=== PATIENT | male | born 1935 | race Caucasian/White ===

== ENCOUNTER 2016-04-23 08:45 | Inpatient (IN) | payer OTHER ==
[~2016-04-23] VITALS: Ht 177.8 cm; Wt 90.3 kg
[2016-04-23] VITALS (8 sets, daily range): BP systolic 109–138; BP diastolic 62–91; PULSE 70–76; TEMP 36.7–38.2; O2SAT 95–100; Ht 177.8 cm; Wt 90.3 kg
[~2016-04-23 08:45] MED LIST: ALBUAER INH; ALLO100T PO; CHOL1000 PO; DOCU100C31 PO; INSUINJ4 SQ; ISOS30TA35 PO; LEVE500T PO; LSN40 PO; LSX20 PO; NTRGSL/4 UT; NVLGI/PEN SQ; PLV75 PO; SITA50TA3 PO; TOLT4CAP PO; TPRSR/100 PO
[2016-04-23] MEDS ORDERED: PIPERACILLIN/TAZOBACTAM 4.5 GM/100ML D5W IV STA (09:27)
[2016-04-23] MEDS ORDERED: ACETAMINOPHEN 325 MG SUPP PR STA (09:27)
[2016-04-23] MEDS ORDERED: SODIUM CHLORIDE 0.9% 1000ML 500 ML IV ONE ×4 (09:27→10:14)
[2016-04-23] MEDS ORDERED: ALBUT/IPRATROP 3MG/0.5MG NEB 3 ML VIAL INH STA (09:30)
[2016-04-23 09:39] LABS: BASO % 0.2 %; BASO ABS # 0.03 K/uL (0-0.2); COMPLETE YES; HEMATOCRIT 46.2 % (42-52); IG% 0.3 %; LYMPH % 3.8 %; LYMPH ABS # 0.58 K/uL (1.2-3.4); MEAN CELL VOLUME 94.9 fL (80-100); MEAN CORPUSCULAR HEMOGLOBIN 33.3 pg (25-34); MEAN CORPUSCULAR HGB CONC 35.1 g/dl (32-36); MEAN PLATELET VOLUME 10.4 fL (7.4-10.4); MONO % 6.6 %; NEUT % 89.1 %; PLATELET COUNT 206 K/uL (130-400); RED BLOOD COUNT 4.87 M/uL (4.7-6.1); WHITE BLOOD COUNT 15.45 K/uL (4.8-10.8)
[2016-04-23 09:46] LABS: BUN/CREATININE RATIO 12.7 (10-20); CALCIUM 8.6 mg/dl (8.5-10.1); CREATININE 2.6 mg/dl (0.60-1.40); MAGNESIUM 2.3 mg/dl (1.8-2.4); POTASSIUM 5.1 mmol/L (3.5-5.1)
[2016-04-23 09:47] LABS: PROTHROMBIN TIME (PATIENT) 11.1 SECONDS (9.0-12.0)
[2016-04-23 09:49] LABS: ALB/GLOB RATIO 0.7 (0.9-2)
[2016-04-23 09:57] LABS: URINE APPEARANCE CLEAR (CLEAR); URINE BILIRUBIN NEG (NEG); URINE COLOR YELLOW; URINE NITRITE NEG (NEG); URINE SPECIFIC GRAVITY 1.013 (1.000-1.030); UROBILINOGEN NEG (NEG); ZZURINE CULT IF INDIC CATH NO
[2016-04-23 09:58] LABS: MANUAL MICROSCOPIC REQUIRED? NO; REVIEW REQ? NO
[2016-04-23 10:15] LABS: VEN BLOOD GAS BASE EXCESS 0.8 mmol/L; VENOUS BLOOD GAS PCO2 65 mmHg (38.0-50.0); VENOUS BLOOD GAS PO2 32 mmHg
--- NOTE | 2016-04-23 10:15 | DIAGNOSTIC IMAGING REPORT ---
SINGLE VIEW CHEST CLINICAL HISTORY: Sepsis. FINDINGS: 2 AP, portable, upright chest radiographs are compared to chest x-ray and chest CT dated 01/21/2016. The examination is degraded by portable technique, apical lordotic positioning, and patient rotation. A 2-lead cardiac pacemaker is unchanged in position. The heart is enlarged and there is atherosclerotic calcification of the thoracic aorta. There is pulmonary vascular congestion. Chronic interstitial thickening is unchanged. Small pleural effusions are noted with associated bibasilar atelectasis. There is no pneumothorax. The skeletal structures are osteopenic. Degenerative change is seen in the thoracic spine and shoulders. IMPRESSION: 1. Cardiomegaly and cardiac pacemaker with evidence of congestive failure. 2. Small pleural effusions are identified. Electronically signed by: Dar Fallon M.D. 04/23/2016 10:14 AM Dictated Date/Time: 04/23/2016 10:12 AM
[2016-04-23 10:29] LABS: VEN BLD GAS O2 SATURATION < 60.0 %
[2016-04-23] MEDS ORDERED: LEVE250T PO (10:39)
[2016-04-23] MEDS ORDERED: METO25TA3 PO (10:39)
[2016-04-23] MEDS ORDERED: INSDGIPEN SC (10:39)
[2016-04-23] MEDS ORDERED: VNTHFA/IN INH (10:39)
[2016-04-23] MEDS ORDERED: PIPERACILL/TAZOBAC IV 4.5 GM in DEXTROSE 5% 100ML 100 ML IV STA (11:19)
[2016-04-23] MEDS ORDERED: SODIUM CHLORIDE 0.9% 1000ML 1,000 ML IV SCH (11:19)
[2016-04-23] MEDS ORDERED: ALUMINUM/MAGNESIUM/SIMETH (MAALOX MAX) 30 ML UDC PO PRN (11:30)
[2016-04-23] MEDS ORDERED: POLYETHYLENE (MIRALAX) 17 GM PACK PO PRN (11:30)
[2016-04-23] MEDS ORDERED: ONDANSETRON INJ 2 MG/ML 2 ML VIAL IV PRN (11:30)
[2016-04-23] MEDS ORDERED: ACETAMINOPHEN 325 MG TAB PO PRN (11:30)
[2016-04-23] MEDS ORDERED: MAGNESIUM HYDROXIDE SUSP 30 ML UDC PO PRN (11:30)
[2016-04-23 11:48] LABS: INFLUENZA A PCR Neg for Influ A (NEG); INFLUENZA B PCR Neg for Influ B (NEG)
[2016-04-23] MEDS ORDERED: GLUCOSE 10 TABS/TUBE PO PRN (12:00)
[2016-04-23] MEDS ORDERED: GLUCAGON FOR INJ 1 MG VIAL SQ PRN (12:00)
[2016-04-23] MEDS ORDERED: DEXTROSE 50% 50 ML SYR IV PRN (12:00)
[2016-04-23] MEDS ORDERED: GLUCOSE 40% GEL 15 GM TUBE PO PRN (12:00)
--- NOTE | 2016-04-23 12:07 | Progress Note ---
Subjective Date of Service: Apr 23, 2016. Subjective Pt evaluation today including: conversation w/ family (daughter), physical exam , lab review, review of studies, review of inpatient medication list This is a 80 year old demented male with a complex PMH that includes tachy- waldo syndrome s/p PPM, CAD s/p stent with stable angina, hx. of CVA with multiple residual symptoms, insulin dependent DM2, CKD stage 3, solitary kidney , obstructive sleep apnea - failed outpatient CPAP, HTN, HLD was brought in by his daughter due to weakness, and respiratory distress. All of the history is obtained from the daughter. He has had weakness and shortness of breath since the weekend, he had a fall on 04/22 - and today the breathing just got a lot worse. 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 His uvula was removed due to his significant apnea nocturnally and his failed CPAP use at home (did not tolerate it well). On presentation here, WBC was elevated, lactic acid found to be > 5 - patient was hypoxic and placed on a non-rebreather for now. He is currently asleep and lethargic, somewhat arousable, but goes back to sleep. He becomes apneic during sleep. Problem List Medical Problems: (1) Altered mental status Status: Acute (2) Chest pain Status: Acute (3) Chronic renal disease Status: Acute (4) Esophageal foreign body Status: Acute (5) New onset a-fib Status: Acute (6) Pneumonia Status: Acute (7) Precordial chest pain Status: Acute (8) UTI (urinary tract infection) Status: Acute (9) Weakness Status: Acute Medications Current Inpatient Medications Medications (Trade) Dose Ordered Sig/Mike Route Start Time Stop Time Status Last Admin Dose Admin Heparin Sodium (Porcine) 5000 unit 5,000 unit Q12 SQ 04/23/16 21:00 05/23/16 20:59 UNV Sodium Chloride (Nss 1000ml) 1,000 ml @ 100 mls/hr Q10H IV 04/23/16 11:19 05/23/16 11:18 UNV Acetaminophen (Tylenol Tab) 650 mg Q4H PRN PO 04/23/16 11:30 05/23/16 11:29 UNV Al Hydrox/Mg Hydrox/Simethicone (Maalox Max Susp) 15 ml Q4H PRN PO 04/23/16 11:30 05/23/16 11:29 UNV Magnesium Hydroxide (Milk Of Magnesia Susp) 30 ml Q12H PRN PO 04/23/16 11:30 05/23/16 11:29 UNV Ondansetron HCl (Zofran Inj) 4 mg Q6H PRN IV 04/23/16 11:30 05/23/16 11:29 UNV Polyethylene 17 gm 17 gm DAILY PRN PO 04/23/16 11:30 05/23/16 11:29 UNV Piperacillin Sod/ Tazobactam Sod/ Dextrose (Zosyn Iv/D5 100ml) 120 ml @ 200 mls/hr Q6H STAT IV 04/23/16 11:19 04/23/16 11:54 UNV Levalbuterol (Xopenex 0.63 Mg/ 3 Ml Neb) 0.63 mg Q6R INH 04/23/16 15:00 05/23/16 14:59 UNV Clopidogrel Bisulfate (plAVix TAB) 75 mg DAILY PO 04/24/16 09:00 05/24/16 08:59 UNV Insulin Glargine (Lantus Solostar Pen) 5 unit BID SC 04/23/16 21:00 05/23/16 20:59 UNV Isosorbide Mononitrate (Imdur Ext Rel Tab) 30 mg QAM PO 04/24/16 09:00 05/24/16 08:59 UNV Levetiracetam (Keppra Tab) 250 mg BID PO 04/23/16 21:00 05/23/16 20:59 UNV Metoprolol Succinate (Toprol Xl Tab) 25 mg DAILY PO 04/24/16 09:00 05/24/16 08:59 UNV Objective Vital Signs Date Time Temp Pulse Resp B/P Pulse Ox O2 Delivery O2 Flow Rate FiO2 04/23/16 10:49 38.2 73 22 109/62 95 Non-Rebreather 15.0 04/23/16 10:16 105/83 04/23/16 10:15 71 6 100 04/23/16 10:01 110/64 04/23/16 10:00 70 7 100 04/23/16 09:45 72 15 100 04/23/16 09:42 100 Non-Rebreather 15.0 04/23/16 09:40 71 106/59 100 Non-Rebreather 15.0 04/23/16 09:33 106/59 04/23/16 09:30 71 0 100 04/23/16 09:15 73 6 100 04/23/16 09:07 80 04/23/16 09:02 38.2 77 20 113/75 100 High Flow Oxygen 15.0 Non-Rebreather 04/23/16 08:55 113/75 Physical Exam General Appearance: + pertinent finding (lethargic; somnolent, using accessory muscles for respiration) Respiratory/Chest: no respiratory distress, no accessory muscle use, + accessory muscle use, + rhonchi Cardiovascular: regular rate, rhythm, no edema, no murmur Abdomen: normal bowel sounds, non tender, soft Skin: normal color Laboratory Results Last 24 Hours Test 04/23/16 08:56 04/23/16 09:10 04/23/16 09:15 04/23/16 10:00 Urine Color YELLOW Urine Appearance CLEAR Urine pH 5.0 Urine Specific [place] 1.013 Urine Protein 2+ Urine Glucose (UA) 1+ Urine Ketones NEG Urine Occult Blood TRACE Urine Nitrite NEG Urine Bilirubin NEG Urine Urobilinogen NEG Urine Leukocyte Esterase NEG Urine WBC (Auto) 1-5 /hpf Urine RBC (Auto) 0-4 /hpf Urine Hyaline Casts (Auto) 0 /lpf Urine Epithelial Cells (Auto) 5-10 /lpf Urine Bacteria (Auto) NEG White Blood Count 15.45 K/uL Red Blood Count 4.87 M/uL Hemoglobin 16.2 g/dL Hematocrit 46.2 % Mean Corpuscular Volume 94.9 fL Mean Corpuscular Hemoglobin 33.3 pg Mean Corpuscular Hemoglobin Concent 35.1 g/dl Platelet Count 206 K/uL Mean Platelet Volume 10.4 fL Neutrophils (%) (Auto) 89.1 % Lymphocytes (%) (Auto) 3.8 % Monocytes (%) (Auto) 6.6 % Eosinophils (%) (Auto) 0.0 % Basophils (%) (Auto) 0.2 % Neutrophils # (Auto) 13.77 K/uL Lymphocytes # (Auto) 0.58 K/uL Monocytes # (Auto) 1.02 K/uL Eosinophils # (Auto) 0.00 K/uL Basophils # (Auto) 0.03 K/uL RDW Standard Deviation 50.6 fL RDW Coefficient of Variation 14.8 % Immature Granulocyte % (Auto) 0.3 % Immature Granulocyte # (Auto) 0.05 K/uL Prothrombin Time 11.1 SECONDS Prothromb Time International Ratio 1.0 Activated Partial Thromboplast Time 27.0 SECONDS Partial Thromboplastin Ratio 1.0 Sodium Level 140 mmol/L Potassium Level 5.1 mmol/L Chloride Level 103 mmol/L Carbon Dioxide Level 28 mmol/L Anion Gap 9.0 mmol/L Blood Urea Nitrogen 33 mg/dl Creatinine 2.60 mg/dl Est Creatinine Clear Calc Drug Dose 24.8 ml/min Estimated GFR () 25.5 Estimated GFR (Non- 22.0 BUN/Creatinine Ratio 12.7 Random Glucose 186 mg/dl Calcium Level 8.6 mg/dl Magnesium Level 2.3 mg/dl Total Bilirubin 0.5 mg/dl Aspartate Amino Transf (AST/SGOT) 20 U/L Alanine Aminotransferase (ALT/SGPT) 17 U/L Alkaline Phosphatase 80 U/L Pro-B-Type Natriuretic Peptide 3249 pg/ml Total Protein 7.8 gm/dl Albumin 3.3 gm/dl Globulin 4.5 gm/dl Albumin/Globulin Ratio 0.7 Bedside Lactic Acid Venous 5.33 mmol/L Venous Blood pH 7.28 Venous Blood Partial Pressure CO2 65 mmHg Venous Blood Partial Pressure O2 32 mmHg Venous Blood HCO3 29 mmol/L Venous Blood Oxygen Saturation < 60.0 % Venous Blood Base Excess 0.8 mmol/L Test 04/23/16 10:15 04/23/16 11:19 Assessment and Plan This is a 80 year old demented male with a complex PMH that includes tachy- waldo syndrome s/p PPM, CAD s/p stent with stable angina, hx. of CVA with multiple residual symptoms, insulin dependent DM2, CKD stage 3, solitary kidney , obstructive sleep apnea with CPAP intolerance, HTN, HLD was brought in by his daughter due to weakness, and respiratory distress. Sepsis secondary to possible Aspiration Pneumonia patient is septic with +fever, +leukocytosis, +lactic acidosis no clear source noted CXR noted to have some pleural effusion patient has a history of aspiration and this is likely an aspiration pneumonia started IV Zosyn patient is coming from home - lives with daughter If condition does not improve in 1-2 days - can convert to comfort measures as per daughter, Saray given 4L of fluids in the ER; maintenance fluids of 100mL/hr will be started recheck lactic acid now Acute Kidney Injury superimposed on CKD stage 3 creat up to 2.6 patient has been having decreased food intake for the past 4-5 days dehydration and infection baseline is < 2 given 4L of fluids in the ER continue IVFs and monitor kidney function Acute Respiratory Failure likely related to the pneumonia as above hypoxic en route to the hospital placed on a nonrebreather - can titrate down to nasal cannula as tolerated venous blood gas - hypercapnia, acidosis CAD s/p stent history of stent continue Plavix, b-nancie continue Imdur for stable anginal symptoms Hx. of CVA has had a stroke in the past - 2006 apparently has had epiglottic issues since the CVA aspiration precautions placed continue Plavix Insulin Dependent DM2 uses 13 units of Lantus nightly uses NovoLog TID will start sliding scale and Lantus 5 units BID ha1c; glycemic control consult monitor for hypoglycemia with decrease PO intake NINI should be on CPAP, though does not tolerate it use oxygen nocturnally Tachy-Waldo Syndrome s/p cardiac pacemaker in situ DVT ppx subq heparin DNR contact information for Saray, daughter and POA cell phone: [phone] work phone: [phone] If patient's condition worsens or there is no improvement - contact daughter regarding comfort measures
--- NOTE | 2016-04-23 12:11 | History and Physical ---
History & Physical Date & Time of Service: Apr 23, 2016 at 12:08 Chief Complaint: Respiratory Distress Primary Care Physician: Austen Boyer M.D. (MEDICAL) History of Present Illness Source: family, clinic records, hospital records This is a 80 year old demented male with a complex PMH that includes tachy- waldo syndrome s/p PPM, CAD s/p stent with stable angina, hx. of CVA with multiple residual symptoms, insulin dependent DM2, CKD stage 3, solitary kidney , obstructive sleep apnea - failed outpatient CPAP, HTN, HLD was brought in by his daughter due to weakness, and respiratory distress. All of the history is obtained from the daughter. He has had weakness and shortness of breath since the weekend, he had a fall on 04/22 - and today the breathing just got a lot worse. 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 His uvula was removed due to his significant apnea nocturnally and his failed CPAP use at home (did not tolerate it well). On presentation here, WBC was elevated, lactic acid found to be > 5 - patient was hypoxic and placed on a non-rebreather for now. He is currently asleep and lethargic, somewhat arousable, but goes back to sleep. He becomes apneic during sleep. Past Medical/Surgical History Medical Problems: (1) Amputated finger Permanent Comment: traumatic Status: Resolved (2) ASCVD (arteriosclerotic cardiovascular disease) Status: Chronic (3) BPH (benign prostatic hyperplasia) Status: Chronic (4) CAD (coronary artery disease) Status: Chronic (5) CKD (chronic kidney disease) stage 3, GFR 30-59 ml/min Status: Chronic (6) CVA (cerebral vascular accident) Status: Resolved (7) Dementia Status: Chronic (8) Diabetes mellitus type 2 in obese Status: Chronic (9) Diabetic polyneuropathy Status: Chronic (10) Dyslipidemia Status: Chronic (11) Eczema, dyshidrotic Status: Chronic (12) GERD (gastroesophageal reflux disease) Status: Chronic (13) Gout Status: Chronic (14) Hemiplegia, post-stroke Status: Chronic (15) HTN (hypertension) Status: Chronic (16) NINI (obstructive sleep apnea) Status: Chronic (17) PVD (peripheral vascular disease) Status: Chronic (18) Seizure disorder Status: Chronic (19) Solitary kidney Status: Chronic Surgical Problems: (1) H/O Spinal surgery Status: Resolved (2) H/O vasectomy Status: Resolved Family History Diabetes mellitus Heart disease Social History Smoking Status: Former Smoker Drug Use: none Marital Status: Occupational Status: retired Immunizations History of Influenza Vaccine: No History of Tetanus Vaccine?: Unknown History of Pneumococcal: Unknown History of Hepatitis B Vaccine: No Multi-Drug Resistant 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 Allergies Coded Allergies: Atorvastatin (Verified Allergy, Mild, MUSCLE WEAKNESS, 01/21/16) Phenytoin (Verified Allergy, Unknown, Weak legs., 01/21/16) Source[facility] Simvastatin (Verified Allergy, Unknown, UNKNOWN, 01/21/16) Home Medications Scheduled Allopurinol (Zyloprim), 200 MG PO DAILY Cholecalciferol (Vitamin D3), 2,000 TAB PO DAILY Clopidogrel Bisulfate (Clopidogrel), 75 MG PO DAILY Furosemide (Furosemide), 10 MG PO DAILY Insulin Aspart (Novolog Flexpen), 2-10 UNITS SQ UD Insulin Glargine (Lantus Solostar), 13 UNITS SC HS Isosorbide Mononitrate Ext Rel (Imdur Ext Rel), 30 MG PO QAM Levetiracetam (Keppra), 250 MG PO BID Lisinopril (Lisinopril), 20 MG PO QAM Metoprolol Succ (Toprol Xl) (Toprol-Xl), 25 MG PO DAILY Nitroglycerin (Nitrostat), 0.4 MG UT PRN Sitagliptin (Januvia), 50 MG PO DAILY Tolterodine Tartrate (Detrol La), 4 MG PO QAM Scheduled PRN Albuterol Hfa (Ventolin Hfa), 2 PUFF INH Q4H PRN for Wheezing Physical Exam Vital Signs Date Time Temp Pulse Resp B/P Pulse Ox O2 Delivery O2 Flow Rate FiO2 04/23/16 10:49 38.2 73 22 109/62 95 Non-Rebreather 15.0 04/23/16 10:16 105/83 04/23/16 10:15 71 6 100 04/23/16 10:01 110/64 04/23/16 10:00 70 7 100 04/23/16 09:45 72 15 100 04/23/16 09:42 100 Non-Rebreather 15.0 04/23/16 09:40 71 106/59 100 Non-Rebreather 15.0 04/23/16 09:33 106/59 04/23/16 09:30 71 0 100 04/23/16 09:15 73 6 100 04/23/16 09:07 80 04/23/16 09:02 38.2 77 20 113/75 100 High Flow Oxygen 15.0 Non-Rebreather 04/23/16 08:55 113/75 General Appearance: + pertinent finding (somnolent, lethargic, nonbreather on face; snoring loudly with periods of apnea; +accessory muscle use for respirations) Head: + pertinent finding (+laceration above left eye) Respiratory/Chest: + accessory muscle use, + rhonchi Cardiovascular: regular rate, rhythm, no edema, no murmur Extremities/Musculoskelatal: normal capillary refill, no pedal edema Neurologic/Psych: + pertinent finding (lethargic) Skin: normal color Diagnostics Laboratory Results Results Past 24 Hours Test 04/23/16 08:56 04/23/16 09:10 04/23/16 09:15 04/23/16 10:00 Range/Units Urine Color YELLOW Urine Appearance CLEAR CLEAR Urine pH 5.0 4.5-7.5 Urine Specific [place] 1.013 1.000-1.030 Urine Protein 2+ NEG Urine Glucose (UA) 1+ NEG Urine Ketones NEG NEG Urine Occult Blood TRACE NEG Urine Nitrite NEG NEG Urine Bilirubin NEG NEG Urine Urobilinogen NEG NEG Urine Leukocyte Esterase NEG NEG Urine WBC (Auto) 1-5 0-5 /hpf Urine RBC (Auto) 0-4 0-4 /hpf Urine Hyaline Casts (Auto) 0 0-5 /lpf Urine Epithelial Cells (Auto) 5-10 0-5 /lpf Urine Bacteria (Auto) NEG NEG White Blood Count 15.45 4.8-10.8 K/uL Red Blood Count 4.87 4.7-6.1 M/uL Hemoglobin 16.2 14.0-18.0 g/dL Hematocrit 46.2 42-52 % Mean Corpuscular Volume 94.9 80-100 fL Mean Corpuscular Hemoglobin 33.3 25-34 pg Mean Corpuscular Hemoglobin Concent 35.1 32-36 g/dl Platelet Count 206 130-400 K/uL Mean Platelet Volume 10.4 7.4-10.4 fL Neutrophils (%) (Auto) 89.1 % Lymphocytes (%) (Auto) 3.8 % Monocytes (%) (Auto) 6.6 % Eosinophils (%) (Auto) 0.0 % Basophils (%) (Auto) 0.2 % Neutrophils # (Auto) 13.77 1.4-6.5 K/uL Lymphocytes # (Auto) 0.58 1.2-3.4 K/uL Monocytes # (Auto) 1.02 0.11-0.59 K/uL Eosinophils # (Auto) 0.00 0-0.5 K/uL Basophils # (Auto) 0.03 0-0.2 K/uL RDW Standard Deviation 50.6 36.4-46.3 fL RDW Coefficient of Variation 14.8 11.5-14.5 % Immature Granulocyte % (Auto) 0.3 % Immature Granulocyte # (Auto) 0.05 0.00-0.02 K/uL Prothrombin Time 11.1 9.0-12.0 SECONDS Prothromb Time International Ratio 1.0 0.9-1.1 Activated Partial Thromboplast Time 27.0 21.0-31.0 SECONDS Partial Thromboplastin Ratio 1.0 Sodium Level 140 136-145 mmol/L Potassium Level 5.1 3.5-5.1 mmol/L Chloride Level 103 98-107 mmol/L Carbon Dioxide Level 28 21-32 mmol/L Anion Gap 9.0 3-11 mmol/L Blood Urea Nitrogen 33 7-18 mg/dl Creatinine 2.60 0.60-1.40 mg/dl Est Creatinine Clear Calc Drug Dose 24.8 ml/min Estimated GFR () 25.5 Estimated GFR (Non- 22.0 BUN/Creatinine Ratio 12.7 10-20 Random Glucose 186 70-99 mg/dl Calcium Level 8.6 8.5-10.1 mg/dl Magnesium Level 2.3 1.8-2.4 mg/dl Total Bilirubin 0.5 0.2-1 mg/dl Aspartate Amino Transf (AST/SGOT) 20 15-37 U/L Alanine Aminotransferase (ALT/SGPT) 17 12-78 U/L Alkaline Phosphatase 80 45-117 U/L Pro-B-Type Natriuretic Peptide 3249 0-1800 pg/ml Total Protein 7.8 6.4-8.2 gm/dl Albumin 3.3 3.4-5.0 gm/dl Globulin 4.5 2.5-4.0 gm/dl Albumin/Globulin Ratio 0.7 0.9-2 Bedside Lactic Acid Venous 5.33 0.90-1.70 mmol/L Venous Blood pH 7.28 7.36-7.41 Venous Blood Partial Pressure CO2 65 38.0-50.0 mmHg Venous Blood Partial Pressure O2 32 mmHg Venous Blood HCO3 29 mmol/L Venous Blood Oxygen Saturation < 60.0 % Venous Blood Base Excess 0.8 mmol/L Test 04/23/16 10:15 04/23/16 11:19 Range/Units Influenza Type A (RT-PCR) Neg for Influ A NEG Influenza Type B (RT-PCR) Neg for Influ B NEG Microbiology Results 04/23/16 Blood Culture, Received Pending 04/23/16 Blood Culture, Received Pending Diagnostic Radiology SINGLE VIEW CHEST CLINICAL HISTORY: Sepsis. FINDINGS: 2 AP, portable, upright chest radiographs are compared to chest x-ray and chest CT dated 01/21/2016. The examination is degraded by portable technique, apical lordotic positioning, and patient rotation. A 2-lead cardiac pacemaker is unchanged in position. The heart is enlarged and there is atherosclerotic calcification of the thoracic aorta. There is pulmonary vascular congestion. Chronic interstitial thickening is unchanged. Small pleural effusions are noted with associated bibasilar atelectasis. There is no pneumothorax. The skeletal structures are osteopenic. Degenerative change is seen in the thoracic spine and shoulders. IMPRESSION: 1. Cardiomegaly and cardiac pacemaker with evidence of congestive failure. 2. Small pleural effusions are identified. EKG Atrial-paced rhythm with prolonged AV conduction Impression Assessment and Plan This is a 80 year old demented male with a complex PMH that includes tachy- waldo syndrome s/p PPM, CAD s/p stent with stable angina, hx. of CVA with multiple residual symptoms, insulin dependent DM2, CKD stage 3, solitary kidney , obstructive sleep apnea with CPAP intolerance, HTN, HLD was brought in by his daughter due to weakness, and respiratory distress. Sepsis secondary to possible Aspiration Pneumonia patient is septic with +fever, +leukocytosis, +lactic acidosis no clear source noted CXR noted to have some pleural effusion patient has a history of aspiration and this is likely an aspiration pneumonia started IV Zosyn patient is coming from home - lives with daughter If condition does not improve in 1-2 days - can convert to comfort measures as per daughter, Saray given 4L of fluids in the ER; maintenance fluids of 100mL/hr will be started recheck lactic acid now Acute Kidney Injury superimposed on CKD stage 3 creat up to 2.6 patient has been having decreased food intake for the past 4-5 days dehydration and infection baseline is < 2 given 4L of fluids in the ER continue IVFs and monitor kidney function Acute Respiratory Failure likely related to the pneumonia as above hypoxic en route to the hospital placed on a nonrebreather - can titrate down to nasal cannula as tolerated venous blood gas - hypercapnia, acidosis CAD s/p stent history of stent continue Plavix, b-nancie continue Imdur for stable anginal symptoms Hx. of CVA has had a stroke in the past - 2006 apparently has had epiglottic issues since the CVA aspiration precautions placed continue Plavix Insulin Dependent DM2 uses 13 units of Lantus nightly uses NovoLog TID will start sliding scale and Lantus 5 units BID ha1c; glycemic control consult monitor for hypoglycemia with decrease PO intake NINI should be on CPAP, though does not tolerate it use oxygen nocturnally Tachy-Waldo Syndrome s/p cardiac pacemaker in situ DVT ppx subq heparin DNR contact information for Saray, daughter and POA cell phone: [phone] work phone: [phone] If patient's condition worsens or there is no improvement - contact daughter regarding comfort measures Advanced Directives Existing Living Will: No Existing Power of Manager Software Development: No VTE Prophylaxis VTE Risk Assessment Done? Y/N: Yes Risk Level: High
[2016-04-23] MEDS ORDERED: PHARMACY GLYCEMIC MGMT CONSULT SCH (12:39)
[2016-04-23] MEDS ORDERED: PIPERACILL/TAZOBAC CONSULT ACTIVE PRN (13:30)
--- NOTE | 2016-04-23 13:34 | Pharmacy Progress Note ---
Glycemic Control Intl Consult Date of Service Apr 23, 2016. Scope Glycemic Pharmacist consulted by Dr Workman on 04/23/16 for glycemic control and to write orders per [facility] inpatient glycemic control protocol Objective Weight (Kilograms): 90.500 Accuchecks BSG (last 24hrs): Test 04/23/16 09:10 Random Glucose 186 mg/dl (70-99) Laboratory Data (last 24hrs) Test 04/23/16 09:10 Anion Gap 9.0 mmol/L BUN/Creatinine Ratio 12.7 Blood Urea Nitrogen 33 mg/dl Creatinine 2.60 mg/dl Potassium Level 5.1 mmol/L Sodium Level 140 mmol/L White Blood Count 15.45 K/uL Red Blood Count 4.87 M/uL Hemoglobin 16.2 g/dL Hematocrit 46.2 % Mean Corpuscular Volume 94.9 fL Mean Corpuscular Hemoglobin 33.3 pg Mean Corpuscular Hemoglobin Concent 35.1 g/dl Platelet Count 206 K/uL Mean Platelet Volume 10.4 fL Neutrophils (%) (Auto) 89.1 % Lymphocytes (%) (Auto) 3.8 % Monocytes (%) (Auto) 6.6 % Eosinophils (%) (Auto) 0.0 % Basophils (%) (Auto) 0.2 % Neutrophils # (Auto) 13.77 K/uL Lymphocytes # (Auto) 0.58 K/uL Monocytes # (Auto) 1.02 K/uL Eosinophils # (Auto) 0.00 K/uL Basophils # (Auto) 0.03 K/uL HbA1c 04/16/16 Hgb A1c = 7.3% (per Epic) Recent Pertinent Medications Outpatient Anti-diabetic Regimen: * Lantus 13 units hs, Novolog SSI ACHS (correction factor ~25), Januvia 50 mg daily * A1c = 7.3 % 04/16/16 (per [facility] records) The patient is currently receiving: * Basal insulin: Lantus 5 units every 12 hours * Correctional Insulin: Novolog Correction per scale ACHS Goal Range: Low 140 mg/dL - High 180 mg/dL Correction Factor: 30 mg/dL/unit * Prandial insulin: Per carb ratio of 1 unit per 10 grams CHO consumed * Oral Agents: none Risk Factors for Insulin Resistance: * Steroids: no * Infection: possible aspiration pneumonia, on Zosyn * Pressors: no * IVF: NS @ 100 ml/hr, Zosyn mixed in D5W * Recent Surgery: no * Diet: ? * Mechanical Ventilation: no Assessment & Plan ASSESSMENT: * ADA & AACE recommend a goal blood sugar range 140-180 mg/dl for the majority of critically ill & non-critically ill patients. However, more stringent targets may be selected in individual cases. * 80 yo type 2 diabetic, well controlled (A1c 7.3% is possibly too well controlled in 80 yo, with risk of hypoglycemic episodes.) No steroids, not many other risk factors for insulin resistance at this time. Will loosen correction and carb ratio a bit, get an extra BSG check overnight, and reassess in the am when we have more data. PLAN FOR INPATIENT GLYCEMIC CONTROL: * Holding outpatient oral diabetes medications * Basal insulin with LANTUS 5 units SQ BID * Correctional Insulin with NOVOLOG per scale ACHS or Q6hrs while NPO, extra BSG check overnight * Goal Range: Low 140 mg/dL - High 180 mg/dL * Correction Factor: 45 mg/dL/unit * Nutritional / Prandial insulin per carb ratio of 1 unit per 15 grams CHO consumed * Please note that the plan above was derived based on current level of insulin resistance and hospital stress. These recommendations are appropriate for inpatient admission only. Plan of care upon discharge will need to be reassessed to avoid potential outpatient hypo/hyperglycemia. Thank you.
--- NOTE | 2016-04-23 14:14 | EMERGENCY ROOM VISIT NOTE ---
History Report prepared by Lisa: Rosanne Brady Under the Supervision of: Dr. Dar Garcia M.D. First contact with patient: 09:15 Chief Complaint: FEVER Stated Complaint: RESPIRATORY DISTRESS History of Present Illness The patient is a 80 year old male who presents to the Emergency Room via ambulance to be evaluated for respiratory problems this morning. History is limited secondary to dementia and mental state. The patient lives at home in a hospital bed and his inletter noticed that he was not responding. He typically awakens more easily. When he finally woke up, he seemed more confused than baseline. The patient had a fever and his oxygen saturation was 78 on room air. He does not usually wear oxygen at home. He has not been given anything for his fever and did not have a nebulizer treatment on the way to the ED. He has a history of cardiac issues and stroke. He is a DNR. Source of History: patient History Limited By: dementia Onset: this morning Position: other (Global) Symptom Intensity: O2 saturation 78 Timing: other (persistent) Associated Symptoms: + fevers Review of Systems ROS unobtainable secondary to dementia and mental state. 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, post-stroke (18) HTN (hypertension) (19) NINI (obstructive sleep apnea) (20) Pneumonia (21) PVD (peripheral vascular disease) (22) Seizure disorder (23) Sepsis (24) Solitary kidney (25) Weakness Surgical Problems: (1) H/O Spinal surgery (2) H/O vasectomy Family History Diabetes mellitus Heart disease Social History Smoking Status: Unknown if Ever Smoked Drug Use: none Marital Status: Occupation Status: retired Current/Historical Medications Scheduled Allopurinol (Zyloprim), 200 MG PO DAILY Cholecalciferol (Vitamin D3), 2,000 TAB PO DAILY Clopidogrel Bisulfate (Clopidogrel), 75 MG PO DAILY Furosemide (Furosemide), 10 MG PO DAILY Insulin Aspart (Novolog Flexpen), 2-10 UNITS SQ UD Insulin Glargine (Lantus Solostar), 13 UNITS SC HS Isosorbide Mononitrate Ext Rel (Imdur Ext Rel), 30 MG PO QAM Levetiracetam (Keppra), 250 MG PO BID Lisinopril (Lisinopril), 20 MG PO QAM Metoprolol Succ (Toprol Xl) (Toprol-Xl), 25 MG PO DAILY Nitroglycerin (Nitrostat), 0.4 MG UT PRN Sitagliptin (Januvia), 50 MG PO DAILY Tolterodine Tartrate (Detrol La), 4 MG PO QAM Scheduled PRN Albuterol Hfa (Ventolin Hfa), 2 PUFF INH Q4H PRN for Wheezing Allergies Coded Allergies: Simvastatin (Verified Allergy, Mild, rash, 04/23/16) per gmg Atorvastatin (Verified Adverse Reaction, Mild, MUSCLE WEAKNESS, 04/23/16) Phenytoin (Verified Adverse Reaction, Unknown, Weak legs., 04/23/16) Source-[facility] Physical Exam Vital Signs Date Time Temp Pulse Resp B/P Pulse Ox O2 Delivery O2 Flow Rate FiO2 04/23/16 10:49 38.2 73 22 109/62 95 Non-Rebreather 15.0 04/23/16 10:16 105/83 04/23/16 10:15 71 6 100 04/23/16 10:01 110/64 04/23/16 10:00 70 7 100 04/23/16 09:45 72 15 100 04/23/16 09:42 100 Non-Rebreather 15.0 04/23/16 09:40 71 106/59 100 Non-Rebreather 15.0 04/23/16 09:33 106/59 04/23/16 09:30 71 0 100 04/23/16 09:15 73 6 100 04/23/16 09:07 80 04/23/16 09:02 38.2 77 20 113/75 100 High Flow Oxygen 15.0 Non-Rebreather 04/23/16 08:55 113/75 Physical Exam GENERAL: Patient is in no acute distress. HEENT: No acute trauma, normocephalic atraumatic, mucous membranes moist, no nasal congestion, no scleral icterus, pupils equal round and reactive to light. NECK: No stridor, no adenopathy, no meningismus, trachea is midline. LUNGS: Rhonchi noted bilaterally, breath sounds are equal and fairly full, no wheezing. HEART: Without murmurs gallops or rubs, regular rate and rhythm. ABDOMEN: Soft, nontender, bowel sounds positive, no hernias, no peritonitis. EXTREMITIES: No cyanosis or edema, full range of motion of all the joints without pain or difficulty, no signs for acute trauma. NEUROLOGIC: Somnolent, moves all extremities, arouses to voice, not able to follow commands. SKIN: No rash, no jaundice, no diaphoresis. Medical Decision & Procedures ER Provider Diagnostic Interpretation: Radiology results and stated below per my review and radiologist interpretation: SINGLE VIEW CHEST CLINICAL HISTORY: Sepsis. FINDINGS: 2 AP, portable, upright chest radiographs are compared to chest x-ray and chest CT dated 01/21/2016. The examination is degraded by portable technique, apical lordotic positioning, and patient rotation. A 2-lead cardiac pacemaker is unchanged in position. The heart is enlarged and there is atherosclerotic calcification of the thoracic aorta. There is pulmonary vascular congestion. Chronic interstitial thickening is unchanged. Small pleural effusions are noted with associated bibasilar atelectasis. There is no pneumothorax. The skeletal structures are osteopenic. Degenerative change is seen in the thoracic spine and shoulders. IMPRESSION: 1. Cardiomegaly and cardiac pacemaker with evidence of congestive failure. 2. Small pleural effusions are identified. Electronically signed by: Dar Faloln M.D. 04/23/2016 10:14 AM Dictated Date/Time: 04/23/2016 10:12 AM Laboratory Results 04/23/16 09:10 Red Blood Count 4.87, Mean Corpuscular Volume 94.9, Mean Corpuscular Hemoglobin 33.3, Mean Corpuscular Hemoglobin Concent 35.1, Mean Platelet Volume 10.4, Neutrophils (%) (Auto) 89.1, Lymphocytes (%) (Auto) 3.8, Monocytes (%) (Auto) 6.6, Eosinophils (%) (Auto) 0.0, Basophils (%) (Auto) 0.2, Neutrophils # (Auto) 13.77, Lymphocytes # (Auto) 0.58, Monocytes # (Auto) 1.02, Eosinophils # (Auto) 0.00, Basophils # (Auto) 0.03 04/23/16 09:10 Test 04/23/16 08:56 04/23/16 09:10 04/23/16 09:15 04/23/16 10:00 Urine Color YELLOW Urine Appearance CLEAR (CLEAR) Urine pH 5.0 (4.5-7.5) Urine Specific [place] 1.013 (1.000-1.030) Urine Protein 2+ (NEG) Urine Glucose (UA) 1+ (NEG) Urine Ketones NEG (NEG) Urine Occult Blood TRACE (NEG) Urine Nitrite NEG (NEG) Urine Bilirubin NEG (NEG) Urine Urobilinogen NEG (NEG) Urine Leukocyte Esterase NEG (NEG) Urine WBC (Auto) 1-5 /hpf (0-5) Urine RBC (Auto) 0-4 /hpf (0-4) Urine Hyaline Casts (Auto) 0 /lpf (0-5) Urine Epithelial Cells (Auto) 5-10 /lpf (0-5) Urine Bacteria (Auto) NEG (NEG) White Blood Count 15.45 K/uL (4.8-10.8) Red Blood Count 4.87 M/uL (4.7-6.1) Hemoglobin 16.2 g/dL (14.0-18.0) Hematocrit 46.2 % (42-52) Mean Corpuscular Volume 94.9 fL (80-100) Mean Corpuscular Hemoglobin 33.3 pg (25-34) Mean Corpuscular Hemoglobin Concent 35.1 g/dl (32-36) Platelet Count 206 K/uL (130-400) Mean Platelet Volume 10.4 fL (7.4-10.4) Neutrophils (%) (Auto) 89.1 % Lymphocytes (%) (Auto) 3.8 % Monocytes (%) (Auto) 6.6 % Eosinophils (%) (Auto) 0.0 % Basophils (%) (Auto) 0.2 % Neutrophils # (Auto) 13.77 K/uL (1.4-6.5) Lymphocytes # (Auto) 0.58 K/uL (1.2-3.4) Monocytes # (Auto) 1.02 K/uL (0.11-0.59) Eosinophils # (Auto) 0.00 K/uL (0-0.5) Basophils # (Auto) 0.03 K/uL (0-0.2) RDW Standard Deviation 50.6 fL (36.4-46.3) RDW Coefficient of Variation 14.8 % (11.5-14.5) Immature Granulocyte % (Auto) 0.3 % Immature Granulocyte # (Auto) 0.05 K/uL (0.00-0.02) Prothrombin Time 11.1 SECONDS (9.0-12.0) Prothromb Time International Ratio 1.0 (0.9-1.1) Activated Partial Thromboplast Time 27.0 SECONDS (21.0-31.0) Partial Thromboplastin Ratio 1.0 Anion Gap 9.0 mmol/L (3-11) Est Creatinine Clear Calc Drug Dose 24.8 ml/min Estimated GFR () 25.5 Estimated GFR (Non- 22.0 BUN/Creatinine Ratio 12.7 (10-20) Calcium Level 8.6 mg/dl (8.5-10.1) Magnesium Level 2.3 mg/dl (1.8-2.4) Total Bilirubin 0.5 mg/dl (0.2-1) Aspartate Amino Transf (AST/SGOT) 20 U/L (15-37) Alanine Aminotransferase (ALT/SGPT) 17 U/L (12-78) Alkaline Phosphatase 80 U/L (45-117) Pro-B-Type Natriuretic Peptide 3249 pg/ml (0-1800) Total Protein 7.8 gm/dl (6.4-8.2) Albumin 3.3 gm/dl (3.4-5.0) Globulin 4.5 gm/dl (2.5-4.0) Albumin/Globulin Ratio 0.7 (0.9-2) Bedside Lactic Acid Venous 5.33 mmol/L (0.90-1.70) Venous Blood pH 7.28 (7.36-7.41) Venous Blood Partial Pressure CO2 65 mmHg (38.0-50.0) Venous Blood Partial Pressure O2 32 mmHg Venous Blood HCO3 29 mmol/L Venous Blood Oxygen Saturation < 60.0 % Venous Blood Base Excess 0.8 mmol/L Test 04/23/16 10:15 Influenza Type A (RT-PCR) Neg for Influ A (NEG) Influenza Type B (RT-PCR) Neg for Influ B (NEG) Laboratory results reviewed by me. Medications Administered Medications (Trade) Dose Ordered Sig/Mike Route Start Time Stop Time Status Last Admin Dose Admin Sodium Chloride 500 ml @ 999 mls/hr Q31M ONCE IV 04/23/16 09:27 04/23/16 09:57 DC 04/23/16 09:27 999 MLS/HR Sodium Chloride (Nss 1000ml) 500 ml @ 999 mls/hr Q31M ONCE IV 04/23/16 09:27 04/23/16 09:57 DC 04/23/16 09:48 999 MLS/HR Piperacillin Sod/ Tazobactam Sod (Zosyn Iv) 4.5 gm ONE STAT IV 04/23/16 09:27 04/23/16 09:31 DC 04/23/16 09:47 4.5 GM Acetaminophen (Tylenol Supp) 975 mg NOW STAT MN 04/23/16 09:27 04/23/16 09:31 DC 04/23/16 09:47 975 MG Albuterol/ Ipratropium 3 ml 3 ml NOW STAT INH 04/23/16 09:30 04/23/16 09:31 DC 04/23/16 10:16 3 ML Sodium Chloride 500 ml @ 999 mls/hr Q31M ONCE IV 04/23/16 10:14 04/23/16 10:44 DC 04/23/16 10:14 999 MLS/HR Sodium Chloride 500 ml @ 999 mls/hr Q31M ONCE IV 04/23/16 10:14 04/23/16 10:44 DC 04/23/16 10:17 999 MLS/HR Sodium Chloride (Nss 1000ml) 1,000 ml @ 100 mls/hr Q10H IV 04/23/16 11:19 05/23/16 11:18 04/23/16 14:34 100 MLS/HR ECG Indication: SOB/dyspnea Rate (beats per minute): 74 Rhythm: other (atrial pacemaker) Findings: no acute ischemic change, no ectopy ED Course 921: The patient was evaluated in room B10. A complete history and physical exam was performed. Review of old records reveals the patient is DNR. 0927: Ordered Acetaminophen 875 mg MN, Zosyn 4.5 gm IV, NSS 500 ml @ 999 mls/hr IV, NSS 500 ml @ 999 mls/hr IV, DuoNeb 3 ml INH. 1014: Ordered NSS 500 ml @ 999 mls/hr IV x2. 1027: I discussed the case with ESTRELLA Limon. The patient will be evaluated for further management. 1048: I reassessed the patient. The hospitalist was at bedside. Medical Decision Differential includes but is not limited to bronchitis, influenza, pneumonia, CHF, sepsis, UTI, electrolyte imbalance, anemia. There is a moderate leukocytosis which would be consistent with infection, no concerning anemia. Renal panel testing shows acute renal failure. There was no hepatitis or coagulopathy. Urinalysis does not show infection. Influenza testing was negative. EKG shows an atrial pacemaker, no acute ischemia. Chest film was suggestive of possible CHF versus changes just from his larger body habitus. No focal pneumonia was seen by chest film. Blood cultures are pending. Lactic acid level returned quite elevated at over 5. The patient was aggressively managed given his findings. He appeared to be septic from a respiratory source. He had been hypoxic without O2 supplementation. He had significant rhonchi on exam. Despite the x-ray reading , I highly doubt CHF as his findings are more consistent with an acute respiratory infectious process. The patient received IV saline, he was given #2/1L boluses each over one half hour. He received a DuoNeb, IV Zosyn, he was maintained on supplemental oxygen. He was given some rectal Tylenol. Patient has done well with the above treatment. He does require admission/ observation. He is a DO NOT RESUSCITATE so intubation and aggressive measures are not to be instituted. Hopefully, he will improve with antibiotics and fluid hydration. I spoke with the welfare case worker, the on-call hospitalist was consulted. Consults Time Called: 1020 Consulting Physician: ESTRELLA Limon Returned Call: [phone] I discussed the case with her. The patient will be evaluated for further management. Impression Primary Impression: Sepsis Additional Impressions: Hypoxia Acute renal failure Critical Care I have personally spent greater than 30 minutes of critical care time in the direct management of this patient. This includes bedside care, interpretation of diagnostic studies, and testing, discussion with consultants, patient, and family members, and other required patient management activities. This 30 minutes is in excess of all separately billable procedures. Scribe Attestation The scribe's documentation has been prepared under my direction and personally reviewed by me in its entirety. I confirm that the note above accurately reflects all work, treatment, procedures, and medical decision making performed by me. Departure Information Dispostion Being Evaluated By Hospitalist Referrals No Doctor, Assigned (PCP) Patient Instructions [facility] Problem Qualifiers
[2016-04-23] MEDS: LEVALBUTEROL 0.63MG/3 ML NEB INH SCH ×2 (14:45→19:59)
[2016-04-23] MEDS: PIPERACILL/TAZOBAC IV 3.375 GM in DEXTROSE 5% 100ML IV SCH (16:07)
[2016-04-23] MEDS ORDERED: INSULIN ASPART 100 UNITS/ML 3 ML PEN SC SCH (16:30)
[2016-04-23] MEDS ORDERED: MoRPHine SULFATE 2 MG/ML CARP IV STA (16:41)
[2016-04-23] MEDS ORDERED: LORAZEPAM INJ 1 MG in SYRINGE 0.5 ML IV ONE (17:00)
[2016-04-23] MEDS ORDERED: SCOPOLAMINE 1.5 MG TDSY TD SCH (17:00)
[2016-04-23] MEDS: INSULIN GLARGINE SOLOSTAR 100 UNITS/ML 3 ML PEN SC SCH (21:37)
[2016-04-23] MEDS: HEPARIN SOD 5000 UNIT/0.5 ML CARP SQ SCH (21:37)
[2016-04-23] MEDS: INSULIN ASPART 100 UNITS/ML 3 ML PEN SC SCH (21:38)
[2016-04-23] MEDS: LEVETIRACETAM IV 250 MG in DEXTROSE 5% 100ML 100 ML IV SCH (21:47)
[2016-04-24] VITALS (18 sets, daily range): BP systolic 122–168; BP diastolic 61–87; PULSE 71–88; TEMP 36.7–37.6; O2SAT 70–100
[2016-04-24] MEDS ORDERED: ALBUT/IPRATROP 3MG/0.5MG NEB 3 ML VIAL INH STA (00:34)
[2016-04-24] MEDS ORDERED: ALBUT/IPRATROP 3MG/0.5MG NEB 3 ML VIAL INH PRN (00:45)
[2016-04-24] MEDS: LEVALBUTEROL 0.63MG/3 ML NEB INH SCH (00:53)
[2016-04-24] MEDS: PIPERACILL/TAZOBAC IV 3.375 GM in DEXTROSE 5% 100ML IV SCH ×3 (01:13→16:06)
[2016-04-24 01:41] LABS: BASO % 0.1 %; BASO ABS # 0.02 K/uL (0-0.2); COMPLETE YES; EOS % 0.1 %; HEMATOCRIT 42.8 % (42-52); IG% 0.3 %; LYMPH % 6.3 %; MEAN CELL VOLUME 93.4 fL (80-100); MEAN CORPUSCULAR HEMOGLOBIN 32.8 pg (25-34); MEAN PLATELET VOLUME 10.3 fL (7.4-10.4); MONO % 6.9 %; NEUT % 86.3 %; PLATELET COUNT 150 K/uL (130-400); RED BLOOD COUNT 4.58 M/uL (4.7-6.1); WHITE BLOOD COUNT 15.79 K/uL (4.8-10.8)
[2016-04-24 01:44] LABS: ARTERIAL BLD GAS O2 SATURATION 96.3 % (90-95); ARTERIAL BLOOD GAS BASE EXCESS 1.1 mEq/L (-9-1.8); ARTERIAL BLOOD GAS HCO3 25 mmol/L (19-24); ARTERIAL BLOOD GAS PO2 81 mm/Hg (80-95); ARTERIAL BLOOD GAS pH 7.44 (7.35-7.45)
[2016-04-24 01:45] LABS: ALLEN TEST POS (POS); O2 ADMINISTRATION 15 L
[2016-04-24 01:57] LABS: BUN/CREATININE RATIO 16.8 (10-20); CREATININE 2.1 mg/dl (0.60-1.40); MAGNESIUM 2.2 mg/dl (1.8-2.4); POTASSIUM 4.6 mmol/L (3.5-5.1)
[2016-04-24] MEDS ORDERED: METHYLPREDNISOLONE IV 20 MG in SYRINGE 0 ML IV ONE (02:15)
[2016-04-24] MEDS ORDERED: INSULIN GLARGINE SOLOSTAR 100 UNITS/ML 3 ML PEN SC ONE (03:00)
[2016-04-24] MEDS: MoRPHine SULFATE 2 MG/ML CARP IV PRN ×2 (05:30→13:49)
[2016-04-24] MEDS: INSULIN ASPART 100 UNITS/ML 3 ML PEN SC SCH ×4 (05:37→18:38)
[2016-04-24] MEDS: LORAZEPAM INJ 1 MG in SYRINGE 0.5 ML IV PRN ×2 (05:38→20:41)
[2016-04-24] MEDS: ALBUT/IPRATROP 3MG/0.5MG NEB 3 ML VIAL INH SCH ×4 (07:51→20:00)
[2016-04-24 07:55] LABS: ESTIMATED AVERAGE GLUCOSE 160 mg/dl; HA1C FLAG Normal (Normal)
[2016-04-24] MEDS: CHECK SCOPOLAMINE PATCH PLACEMENT SCH ×3 (08:31→16:06)
[2016-04-24] MEDS: INSULIN GLARGINE SOLOSTAR 100 UNITS/ML 3 ML PEN SC SCH ×2 (08:34→20:31)
[2016-04-24] MEDS: HEPARIN SOD 5000 UNIT/0.5 ML CARP SQ SCH ×2 (08:38→20:31)
[2016-04-24] MEDS: LEVETIRACETAM IV 250 MG in DEXTROSE 5% 100ML 100 ML IV SCH ×2 (08:39→20:28)
[2016-04-24] MEDS ORDERED: METOPROLOL SUCC 25MG EXT REL TAB PO SCH (09:00)
[2016-04-24] MEDS ORDERED: ISOSORBIDE MONONITRATE 30 MG TABCR PO SCH (09:00)
[2016-04-24] MEDS ORDERED: CLOPIDOGREL BISULFATE 75 MG TAB PO SCH (09:00)
--- NOTE | 2016-04-24 19:19 | Progress Note ---
Subjective Date of Service: Apr 24, 2016. Subjective Pt evaluation today including: conversation w/ family (daughter), physical exam , lab review, review of studies, review of inpatient medication list Saw/examined the patient in room 285 continues to have rattling/sonorous breath sounds; no improvement with deep suctioning patient moves around to sternal rub, but non verbal non-rebreather on face Daughter, Saray, is in the room with the patient today - I explained that there is a poor prognosis; she is okay with trying for another day before moving on to comfort measures Problem List Medical Problems: (1) Acute renal failure Status: Acute (2) Altered mental status Status: Acute (3) Chest pain Status: Acute (4) Chronic renal disease Status: Acute (5) Esophageal foreign body Status: Acute (6) Hypoxia Status: Acute (7) New onset a-fib Status: Acute (8) Pneumonia Status: Acute (9) Precordial chest pain Status: Acute (10) UTI (urinary tract infection) Status: Acute (11) Weakness Status: Acute Medications Current Inpatient Medications Medications (Trade) Dose Ordered Sig/Mike Route Start Time Stop Time Status Last Admin Dose Admin Heparin Sodium (Porcine) (Heparin Sq 5000 Unit/0.5ml) 5,000 unit Q12 SQ 04/23/16 21:00 05/23/16 20:59 04/24/16 08:38 5,000 UNIT Acetaminophen (Tylenol Tab) 650 mg Q4H PRN PO 04/23/16 11:30 05/23/16 11:29 Al Hydrox/Mg Hydrox/Simethicone (Maalox Max Susp) 15 ml Q4H PRN PO 04/23/16 11:30 05/23/16 11:29 Magnesium Hydroxide (Milk Of Magnesia Susp) 30 ml Q12H PRN PO 04/23/16 11:30 05/23/16 11:29 Ondansetron HCl (Zofran Inj) 4 mg Q6H PRN IV 04/23/16 11:30 05/23/16 11:29 Polyethylene (Miralax Powder Packet) 17 gm DAILY PRN PO 04/23/16 11:30 05/23/16 11:29 Insulin Glargine (Lantus Solostar Pen) 5 unit BID SC 04/23/16 21:00 05/23/16 20:59 04/24/16 08:34 5 UNIT Levetiracetam (Keppra Tab) 250 mg BID PO 04/23/16 21:00 05/23/16 20:59 Future Hold Glucose (Glucose 40% Gel) 15-30 GRAMS 15 GRAMS... UD PRN PO 04/23/16 12:00 05/23/16 11:59 Glucose (Glucose Chew Tab) 4-8 Tablets 4 Tabl... UD PRN PO 04/23/16 12:00 05/23/16 11:59 Dextrose (Dextrose 50% 50ML Syringe) 25-50ML OF 50% DW IV FOR... UD PRN IV 04/23/16 12:00 05/23/16 11:59 Glucagon (Glucagon Inj) 1 mg UD PRN SQ 04/23/16 12:00 05/23/16 11:59 Miscellaneous Information (Consult Glycemic Management Pharmacy) 1 ea UD N/A 04/23/16 12:39 05/23/16 12:38 Piperacillin Sod/ Tazobactam Sod 1 ea 1 ea UD PRN N/A 04/23/16 13:30 05/23/16 13:29 Piperacillin Sod/ Tazobactam Sod 3.375 gm/Dextrose 115 ml @ 28.75 mls/ hr Q8H IV 04/23/16 16:00 04/30/16 07:59 04/24/16 16:06 28.75 MLS/HR Levetiracetam 250 mg/Dextrose 102.5 ml @ 420 mls/hr Q12 IV 04/23/16 21:00 05/23/16 20:59 04/24/16 08:39 420 MLS/HR Lorazepam/Syringe (Ativan Inj/ Syringe) 1 ml @ 0.5 mls/min Q4 PRN IV 04/23/16 16:45 05/23/16 16:44 04/24/16 05:38 0.5 MLS/MIN Morphine Sulfate (MoRPHine SULFATE INJ) 1 mg Q4 PRN IV 04/23/16 16:45 05/07/16 16:44 04/24/16 13:49 1 MG Insulin Aspart (novoLOG ASPART) SLIDING SCALE If C... Q6 SC 04/23/16 18:00 05/23/16 16:29 04/24/16 05:37 1 UNITS Scopolamine (Transderm-Scop Patch) 1.5 mg Q72H TD 04/23/16 17:00 05/23/16 16:59 04/23/16 17:32 1.5 MG Miscellaneous (Remove Transderm-Scop Patch) 1 ea Q72H N/A 04/26/16 16:59 05/26/16 16:58 Miscellaneous Information (Check Scopolamine Patch Placement) 1 ea QS N/A 04/24/16 00:00 05/24/16 00:00 04/24/16 16:06 1 EA Albuterol/ Ipratropium (Duoneb) 3 ml QIDR INH 04/24/16 08:00 05/24/16 07:59 04/24/16 15:32 3 ML Albuterol/ Ipratropium (Duoneb) 3 ml Q2H PRN INH 04/24/16 00:45 05/24/16 00:44 Objective Vital Signs Date Time Temp Pulse Resp B/P Pulse Ox O2 Delivery O2 Flow Rate FiO2 04/24/16 16:12 36.9 81 20 131/67 98 Venturi Mask 15.0 04/24/16 16:00 98 Venturi Mask 15.0 50 04/24/16 15:32 86 22 95 Venturi Mask 50 04/24/16 14:10 97 Venturi Mask 15.0 50 04/24/16 12:00 98 Venturi Mask 15.0 50 04/24/16 12:00 98 Venturi Mask 15.0 04/24/16 11:40 88 24 97 Venturi Mask 50 04/24/16 11:22 36.9 71 18 132/72 95 04/24/16 08:00 100 Venturi Mask 15.0 50 04/24/16 08:00 98 Venturi Mask 15.0 04/24/16 07:30 37.0 83 22 168/87 97 Venturi Mask 15.0 50 04/24/16 04:00 100 Venturi Mask 15.0 50 04/24/16 04:00 36.7 80 28 162/73 100 Venturi Mask 15.0 50 04/24/16 00:53 78 22 95 Venturi Mask 50 04/24/16 00:28 95 Non-Rebreather 04/24/16 00:26 37.6 75 16 124/61 70 Room Air 04/24/16 00:00 99 Venturi Mask 15.0 50 04/23/16 20:22 99 Venturi Mask 15.0 50 04/23/16 19:59 70 22 100 Venturi Mask 50 04/23/16 19:56 36.8 71 16 134/68 100 Non-Rebreather 15.0 Physical Exam General Appearance: + moderate distress, + severe distress (modreate to severe respiratory distress) Respiratory/Chest: + respiratory distress, + accessory muscle use, + crackles, + rhonchi Cardiovascular: no murmur, + tachycardia Laboratory Results Last 24 Hours Test 04/24/16 01:03 04/24/16 01:30 04/24/16 05:22 04/24/16 06:07 Bedside Glucose 163 mg/dl 208 mg/dl White Blood Count 15.79 K/uL Red Blood Count 4.58 M/uL Hemoglobin 15.0 g/dL Hematocrit 42.8 % Mean Corpuscular Volume 93.4 fL Mean Corpuscular Hemoglobin 32.8 pg Mean Corpuscular Hemoglobin Concent 35.0 g/dl Platelet Count 150 K/uL Mean Platelet Volume 10.3 fL Neutrophils (%) (Auto) 86.3 % Lymphocytes (%) (Auto) 6.3 % Monocytes (%) (Auto) 6.9 % Eosinophils (%) (Auto) 0.1 % Basophils (%) (Auto) 0.1 % Neutrophils # (Auto) 13.63 K/uL Lymphocytes # (Auto) 1.00 K/uL Monocytes # (Auto) 1.09 K/uL Eosinophils # (Auto) 0.01 K/uL Basophils # (Auto) 0.02 K/uL RDW Standard Deviation 50.2 fL RDW Coefficient of Variation 14.7 % Immature Granulocyte % (Auto) 0.3 % Immature Granulocyte # (Auto) 0.04 K/uL Arterial Blood pH 7.44 Arterial Blood Partial Pressure CO2 38 mmHg Arterial Blood Partial Pressure O2 81 mm/Hg Arterial Blood HCO3 25 mmol/L Arterial Blood Oxygen Saturation 96.3 % Arterial Blood Base Excess 1.1 mEq/L Arterial Blood Gas Delivery 15 L Alhaji Test POS Sodium Level 142 mmol/L Potassium Level 4.6 mmol/L Chloride Level 108 mmol/L Carbon Dioxide Level 25 mmol/L Anion Gap 9.0 mmol/L Blood Urea Nitrogen 35 mg/dl Creatinine 2.10 mg/dl Est Creatinine Clear Calc Drug Dose 30.7 ml/min Estimated GFR () 33.0 Estimated GFR (Non- 28.5 BUN/Creatinine Ratio 16.8 Random Glucose 189 mg/dl Estimated Average Glucose 160 mg/dl Hemoglobin A1c 7.2 % Lactic Acid Level 3.4 mmol/L 3.0 mmol/L Calcium Level 8.0 mg/dl Magnesium Level 2.2 mg/dl Test 04/24/16 11:54 Bedside Glucose 198 mg/dl Assessment and Plan This is a 80 year old demented male with a complex PMH that includes tachy- waldo syndrome s/p PPM, CAD s/p stent with stable angina, hx. of CVA with multiple residual symptoms, insulin dependent DM2, CKD stage 3, solitary kidney , obstructive sleep apnea with CPAP intolerance, HTN, HLD was brought in by his daughter due to weakness, and respiratory distress. Sepsis secondary to possible Aspiration Pneumonia 04/24 severe sepsis, poor prognosis will add Levaquin to Zosyn and Vanco as per daughter's wishes giving one dose of IV Lasix neb treatments as needed nonrebreather IVFs held due to possible fluid overload recheck lactic acid and WBC in AM I spoke with the daughter in length about the poor prognosis and discussed comfort measures She is okay with giving IV morphine and IV Ativan to help him breath but would like one or two days of management prior to making him comfort measures only continue deep suctioning as tolerated 04/23 patient is septic with +fever, +leukocytosis, +lactic acidosis no clear source noted CXR noted to have some pleural effusion patient has a history of aspiration and this is likely an aspiration pneumonia started IV Zosyn patient is coming from home - lives with daughter If condition does not improve in 1-2 days - can convert to comfort measures as per daughterSaray given 4L of fluids in the ER; maintenance fluids of 100mL/hr will be started recheck lactic acid now Acute Kidney Injury superimposed on CKD stage 3 04/24 creat from 2.6 to 2.1 seems to be getting overloaded with fluids giving low dose IV Lasix monitor kidney function - solitary kidney Zendejas catheter in place 04/23 creat up to 2.6 patient has been having decreased food intake for the past 4-5 days dehydration and infection baseline is < 2 given 4L of fluids in the ER continue IVFs and monitor kidney function Acute Respiratory Failure likely related to the pneumonia as above hypoxic en route to the hospital placed on a nonrebreather - can titrate down to nasal cannula as tolerated venous blood gas - hypercapnia, acidosis CAD s/p stent history of stent continue Plavix, b-nancie continue Imdur for stable anginal symptoms Hx. 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
[2016-04-24] MEDS ORDERED: FUROSEMIDE INJ 20 MG in SYRINGE 0 ML IV ONE (19:30)
[2016-04-24] MEDS ORDERED: LEVOFLOXACIN / D5W 500 MG in PREMIXED IN D5W 100 ML IV ONE (19:30)
[2016-04-25] VITALS (12 sets, daily range): BP systolic 118–149; BP diastolic 62–91; PULSE 75–112; TEMP 36.7–37.3; O2SAT 91–100
[2016-04-25] MEDS: PIPERACILL/TAZOBAC IV 3.375 GM in DEXTROSE 5% 100ML IV SCH ×3 (00:51→16:26)
[2016-04-25] MEDS: LORAZEPAM INJ 1 MG in SYRINGE 0.5 ML IV PRN (05:11)
[2016-04-25] MEDS: INSULIN ASPART 100 UNITS/ML 3 ML PEN SC SCH ×4 (06:00→18:42)
[2016-04-25 07:08] LABS: HEMATOCRIT 40.8 % (42-52); MEAN CELL VOLUME 92.3 fL (80-100); MEAN CORPUSCULAR HGB CONC 33.6 g/dl (32-36); PLATELET COUNT 141 K/uL (130-400); RED BLOOD COUNT 4.42 M/uL (4.7-6.1); WHITE BLOOD COUNT 13.75 K/uL (4.8-10.8)
[2016-04-25] MEDS: CHECK SCOPOLAMINE PATCH PLACEMENT SCH ×3 (07:25→16:26)
[2016-04-25 07:37] LABS: BUN/CREATININE RATIO 17.8 (10-20); CALCIUM 8.4 mg/dl (8.5-10.1); CREATININE 1.8 mg/dl (0.60-1.40)
[2016-04-25] MEDS: ALBUT/IPRATROP 3MG/0.5MG NEB 3 ML VIAL INH SCH ×3 (07:37→19:00)
[2016-04-25] MEDS: LEVETIRACETAM IV 250 MG in DEXTROSE 5% 100ML 100 ML IV SCH ×2 (08:41→22:33)
[2016-04-25] MEDS: HEPARIN SOD 5000 UNIT/0.5 ML CARP SQ SCH ×2 (08:47→20:35)
[2016-04-25] MEDS: INSULIN GLARGINE SOLOSTAR 100 UNITS/ML 3 ML PEN SC SCH ×2 (08:47→20:34)
--- NOTE | 2016-04-25 09:41 | Progress Note ---
Subjective Date of Service: Apr 25, 2016. Subjective Pt evaluation today including: conversation w/ patient, physical exam, lab review, review of studies, review of inpatient medication list Saw/examined the patient in room 285 He is still not responsive to verbal or tactile stimuli, does not wake up His sonorous breathing only slightly improved Problem List Medical Problems: (1) Acute renal failure Status: Acute (2) Altered mental status Status: Acute (3) Chest pain Status: Acute (4) Chronic renal disease Status: Acute (5) Esophageal foreign body Status: Acute (6) Hypoxia Status: Acute (7) New onset a-fib Status: Acute (8) Pneumonia Status: Acute (9) Precordial chest pain Status: Acute (10) UTI (urinary tract infection) Status: Acute (11) Weakness Status: Acute Medications Current Inpatient Medications Medications (Trade) Dose Ordered Sig/Mike Route Start Time Stop Time Status Last Admin Dose Admin Heparin Sodium (Porcine) (Heparin Sq 5000 Unit/0.5ml) 5,000 unit Q12 SQ 04/23/16 21:00 05/23/16 20:59 04/24/16 20:31 5,000 UNIT Acetaminophen (Tylenol Tab) 650 mg Q4H PRN PO 04/23/16 11:30 05/23/16 11:29 Al Hydrox/Mg Hydrox/Simethicone (Maalox Max Susp) 15 ml Q4H PRN PO 04/23/16 11:30 05/23/16 11:29 Magnesium Hydroxide (Milk Of Magnesia Susp) 30 ml Q12H PRN PO 04/23/16 11:30 05/23/16 11:29 Ondansetron HCl (Zofran Inj) 4 mg Q6H PRN IV 04/23/16 11:30 05/23/16 11:29 Polyethylene (Miralax Powder Packet) 17 gm DAILY PRN PO 04/23/16 11:30 05/23/16 11:29 Insulin Glargine (Lantus Solostar Pen) 5 unit BID SC 04/23/16 21:00 05/23/16 20:59 04/24/16 20:31 5 UNIT Levetiracetam (Keppra Tab) 250 mg BID PO 04/23/16 21:00 05/23/16 20:59 Future Hold Glucose (Glucose 40% Gel) 15-30 GRAMS 15 GRAMS... UD PRN PO 04/23/16 12:00 05/23/16 11:59 Glucose (Glucose Chew Tab) 4-8 Tablets 4 Tabl... UD PRN PO 04/23/16 12:00 05/23/16 11:59 Dextrose (Dextrose 50% 50ML Syringe) 25-50ML OF 50% DW IV FOR... UD PRN IV 04/23/16 12:00 05/23/16 11:59 Glucagon (Glucagon Inj) 1 mg UD PRN SQ 04/23/16 12:00 05/23/16 11:59 Miscellaneous Information (Consult Glycemic Management Pharmacy) 1 ea UD N/A 04/23/16 12:39 05/23/16 12:38 Piperacillin Sod/ Tazobactam Sod 1 ea 1 ea UD PRN N/A 04/23/16 13:30 05/23/16 13:29 Piperacillin Sod/ Tazobactam Sod 3.375 gm/Dextrose 115 ml @ 28.75 mls/ hr Q8H IV 04/23/16 16:00 04/30/16 07:59 04/25/16 07:25 28.75 MLS/HR Levetiracetam 250 mg/Dextrose 102.5 ml @ 420 mls/hr Q12 IV 04/23/16 21:00 05/23/16 20:59 04/24/16 20:28 420 MLS/HR Lorazepam/Syringe (Ativan Inj/ Syringe) 1 ml @ 0.5 mls/min Q4 PRN IV 04/23/16 16:45 05/23/16 16:44 04/25/16 05:11 0.5 MLS/MIN Morphine Sulfate (MoRPHine SULFATE INJ) 1 mg Q4 PRN IV 04/23/16 16:45 05/07/16 16:44 04/24/16 13:49 1 MG Insulin Aspart (novoLOG ASPART) SLIDING SCALE If C... Q6 SC 04/23/16 18:00 05/23/16 16:29 04/24/16 05:37 1 UNITS Scopolamine (Transderm-Scop Patch) 1.5 mg Q72H TD 04/23/16 17:00 05/23/16 16:59 04/23/16 17:32 1.5 MG Miscellaneous (Remove Transderm-Scop Patch) 1 ea Q72H N/A 04/26/16 16:59 05/26/16 16:58 Miscellaneous Information (Check Scopolamine Patch Placement) 1 ea QS N/A 04/24/16 00:00 05/24/16 00:00 04/25/16 07:25 1 EA Albuterol/ Ipratropium (Duoneb) 3 ml QIDR INH 04/24/16 08:00 05/24/16 07:59 04/25/16 07:37 3 ML Albuterol/ Ipratropium 3 ml 3 ml Q2H PRN INH 04/24/16 00:45 05/24/16 00:44 Levofloxacin/Prmx (Levaquin / D5W/ Premixed D5W) 50 ml @ 50 mls/hr Q24H IV 04/25/16 20:00 04/30/16 20:59 Objective Vital Signs Date Time Temp Pulse Resp B/P Pulse Ox O2 Delivery O2 Flow Rate FiO2 04/25/16 07:37 77 20 100 Venturi Mask 50 04/25/16 07:29 36.8 83 20 131/81 99 Non-Rebreather 15.0 04/25/16 03:27 36.7 80 20 118/70 100 Nasal Cannula 2.0 04/25/16 00:00 96 Venturi Mask 15.0 50 04/24/16 23:35 36.8 80 22 122/71 98 Mask 2.0 04/24/16 20:48 84 22 96 Venturi Mask 50 04/24/16 20:20 36.9 75 22 128/85 100 Venturi Mask 15.0 04/24/16 20:00 98 Venturi Mask 15.0 50 04/24/16 16:12 36.9 81 20 131/67 98 Venturi Mask 15.0 04/24/16 16:00 98 Venturi Mask 15.0 50 04/24/16 15:32 86 22 95 Venturi Mask 50 04/24/16 14:10 97 Venturi Mask 15.0 50 04/24/16 12:00 98 Venturi Mask 15.0 50 04/24/16 12:00 98 Venturi Mask 15.0 04/24/16 11:40 88 24 97 Venturi Mask 50 04/24/16 11:22 36.9 71 18 132/72 95 Physical Exam General Appearance: + pertinent finding (elderly gentleman who is currently obtunded; resting with oxygen mask on face; sonorous breath sounds heard, periods of apnea) Respiratory/Chest: + respiratory distress (moderate respiratory distress), + decreased breath sounds, + accessory muscle use, + rhonchi Cardiovascular: no murmur, + tachycardia Extremities: + pertinent finding (+1 pitting edema b/l LE) Laboratory Results Last 24 Hours Test 04/24/16 11:54 04/25/16 00:02 04/25/16 06:34 04/25/16 06:50 Bedside Glucose 198 mg/dl 136 mg/dl 141 mg/dl Sodium Level 143 mmol/L Potassium Level 4.0 mmol/L Chloride Level 107 mmol/L Carbon Dioxide Level 30 mmol/L Anion Gap 6.0 mmol/L Blood Urea Nitrogen 32 mg/dl Creatinine 1.80 mg/dl Est Creatinine Clear Calc Drug Dose 35.5 ml/min Estimated GFR () 39.7 Estimated GFR (Non- 34.3 BUN/Creatinine Ratio 17.8 Random Glucose 135 mg/dl Calcium Level 8.4 mg/dl Test 04/25/16 06:55 White Blood Count 13.75 K/uL Red Blood Count 4.42 M/uL Hemoglobin 13.7 g/dL Hematocrit 40.8 % Mean Corpuscular Volume 92.3 fL Mean Corpuscular Hemoglobin 31.0 pg Mean Corpuscular Hemoglobin Concent 33.6 g/dl RDW Standard Deviation 48.6 fL RDW Coefficient of Variation 14.4 % Platelet Count 141 K/uL Mean Platelet Volume 10.0 fL Lactic Acid Level 1.5 mmol/L Assessment and Plan This is a 80 year old demented male with a complex PMH that includes tachy- waldo syndrome s/p PPM, CAD s/p stent with stable angina, hx. of CVA with multiple residual symptoms, insulin dependent DM2, CKD stage 3, solitary kidney , obstructive sleep apnea with CPAP intolerance, HTN, HLD was brought in by his daughter due to weakness, and respiratory distress. Sepsis secondary to possible Aspiration Pneumonia 04/25 lactic acid wnl WBC improving patient is still obtunded and requiring Venturi mask added Levaquin, + Zosyn, + Vancomycin for treatment of this likely aspiration due to patient's epiglottal dysfunction continue nebs as needed, deep suctioning as needed patient is currently DNR/DNI status 04/24 severe sepsis, poor prognosis will add Levaquin to Zosyn and Vanco as per daughter's wishes giving one dose of IV Lasix neb treatments as needed nonrebreather IVFs held due to possible fluid overload recheck lactic acid and WBC in AM I spoke with the daughter in length about the poor prognosis and discussed comfort measures She is okay with giving IV morphine and IV Ativan to help him breath but would like one or two days of management prior to making him comfort measures only continue deep suctioning as tolerated 04/23 patient is septic with +fever, +leukocytosis, +lactic acidosis no clear source noted CXR noted to have some pleural effusion patient has a history of aspiration and this is likely an aspiration pneumonia started IV Zosyn patient is coming from home - lives with daughter If condition does not improve in 1-2 days - can convert to comfort measures as per daughter, Saray given 4L of fluids in the ER; maintenance fluids of 100mL/hr will be started recheck lactic acid now Acute Kidney Injury superimposed on CKD stage 3 04/25 creat down to 1.8 patient with solitary kidney, currently with Zendejas catheter in place held fluids for now due to possible fluid overload, will restart fluids at a slower rate 04/24 creat from 2.6 to 2.1 seems to be getting overloaded with fluids giving low dose IV Lasix monitor kidney function - solitary kidney Zendejas catheter in place 04/23 creat up to 2.6 patient has been having decreased food intake for the past 4-5 days dehydration and infection baseline is < 2 given 4L of fluids in the ER continue IVFs and monitor kidney function Acute Respiratory Failure 04/25 acute respiratory failure secondary to pneumonia/aspiration 04/24 likely related to the pneumonia as above hypoxic en route to the hospital placed on a nonrebreather - can titrate down to nasal cannula as tolerated venous blood gas - hypercapnia, acidosis CAD s/p stent history of stent continue Plavix, b-nancie continue Imdur for stable anginal symptoms Hx. 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
[2016-04-25] MEDS: SODIUM CHLORIDE 0.9% 1000ML 1,000 ML IV SCH ×2 (09:51→20:38)
--- NOTE | 2016-04-25 11:56 | Pharmacy Progress Note ---
Glycemic Control: Progress Nt Date of Service Apr 25, 2016. Scope Glycemic Pharmacist consulted by Dr Workman on 04/23/16 for glycemic control and to write orders per [facility] inpatient glycemic control protocol. Objective Accuchecks BSG (last 24hrs): Test 04/24/16 11:54 04/24/16 18:37 04/25/16 00:02 04/25/16 06:34 Bedside Glucose 198 mg/dl (70-99) 161 mg/dl (70-99) 136 mg/dl (70-99) 141 mg/dl (70-99) Test 04/25/16 06:50 04/25/16 11:41 Random Glucose 135 mg/dl (70-99) Bedside Glucose 151 mg/dl (70-99) Laboratory Data (last 24hrs) Test 04/25/16 06:50 04/25/16 06:55 Anion Gap 6.0 mmol/L BUN/Creatinine Ratio 17.8 Blood Urea Nitrogen 32 mg/dl Creatinine 1.80 mg/dl Potassium Level 4.0 mmol/L Sodium Level 143 mmol/L White Blood Count 13.75 K/uL HbA1c: Test 04/24/16 01:30 Hemoglobin A1c 7.2 % (4.5-5.6) H Recent Pertinent Medications The patient is currently receiving: * Basal insulin: Lantus 5 units every 12 hours * Correctional Insulin: Novolog Correction per scale ACHS Goal Range: Low 140 mg/dL - High 180 mg/dL Correction Factor: 40 mg/dL/unit * Prandial insulin: Per carb ratio of 1 unit per 15 grams CHO consumed Risk Factors for Insulin Resistance: * Infection * IVF (dextrose in Abx, keppra) : Assessment & Plan ASSESSMENT: * Pt has received 17 units of insulin over the past 24hrs * BSGs with adequate control on current regimen * BSGs ranging 136-198mg/dl over the past 24hrs * Pt remains NPO, will continue reduced insulin dosing * ADA & AACE recommend a goal blood sugar range 140-180 mg/dl for the majority of critically ill & non-critically ill patients. However, more stringent targets may be selected in individual cases. PLAN FOR INPATIENT GLYCEMIC CONTROL: No changes needed to regimen at this time. * Holding outpatient oral diabetes medications * Basal insulin with LANTUS 5 units SQ BID * Correctional Insulin with NOVOLOG / REGULAR per scale ACHS or Q6hrs while NPO * Goal Range: Low 140 mg/dL - High 180 mg/dL * Correction Factor: 40 mg/dL/unit * Nutritional / Prandial insulin per carb ratio of 1 unit per 15 grams CHO consumed * Please note that the plan above was derived based on current level of insulin resistance and hospital stress. These recommendations are appropriate for inpatient admission only. Plan of care upon discharge will need to be reassessed to avoid potential outpatient hypo/hyperglycemia. Thank you.
[2016-04-25] MEDS: LEVOFLOXACIN 250MG / D5W IV SCH (20:23)
[2016-04-26] VITALS (11 sets, daily range): BP systolic 152–192; BP diastolic 77–96; PULSE 80–114; TEMP 36.2–37.3; O2SAT 93–100
[2016-04-26] MEDS: PIPERACILL/TAZOBAC IV 3.375 GM in DEXTROSE 5% 100ML IV SCH ×4 (00:32→23:13)
[2016-04-26] MEDS: INSULIN ASPART 100 UNITS/ML 3 ML PEN SC SCH ×5 (06:00→21:00)
[2016-04-26 06:04] LABS: HEMATOCRIT 40.5 % (42-52); MEAN CELL VOLUME 93.8 fL (80-100); MEAN CORPUSCULAR HEMOGLOBIN 31.7 pg (25-34); MEAN CORPUSCULAR HGB CONC 33.8 g/dl (32-36); MEAN PLATELET VOLUME 10.5 fL (7.4-10.4); PLATELET COUNT 152 K/uL (130-400); RED BLOOD COUNT 4.32 M/uL (4.7-6.1); WHITE BLOOD COUNT 9.87 K/uL (4.8-10.8)
[2016-04-26 06:33] LABS: BUN/CREATININE RATIO 16.8 (10-20); CALCIUM 8.4 mg/dl (8.5-10.1); CREATININE 1.6 mg/dl (0.60-1.40); MAGNESIUM 1.9 mg/dl (1.8-2.4)
--- NOTE | 2016-04-26 07:18 | DIAGNOSTIC IMAGING REPORT ---
CHEST ONE VIEW PORTABLE CLINICAL HISTORY: f/u congestion dyspnea COMPARISON STUDY: 04/23/2016 FINDINGS: Findings of developing components of congestive failure versus pulmonary edema. Heart is moderately enlarged. Slight blunting of the lateral calcific angles bilaterally. IMPRESSION: Mildly progressive components of congestive failure/pulmonary edema Electronically signed by: Johnson Nolasco M.D. 04/26/2016 7:16 AM Dictated Date/Time: 04/26/2016 7:16 AM
[2016-04-26] MEDS: ALBUT/IPRATROP 3MG/0.5MG NEB 3 ML VIAL INH SCH ×4 (07:39→19:02)
[2016-04-26] MEDS: LEVETIRACETAM IV 250 MG in DEXTROSE 5% 100ML 100 ML IV SCH ×2 (08:11→21:25)
[2016-04-26] MEDS: HEPARIN SOD 5000 UNIT/0.5 ML CARP SQ SCH ×2 (08:15→21:26)
[2016-04-26] MEDS: INSULIN GLARGINE SOLOSTAR 100 UNITS/ML 3 ML PEN SC SCH ×2 (08:15→21:27)
[2016-04-26] MEDS: SODIUM CHLORIDE 0.9% 1000ML 1,000 ML IV SCH (09:01)
--- NOTE | 2016-04-26 13:49 | Progress Note ---
Subjective Date of Service: Apr 26, 2016. Subjective Pt evaluation today including: conversation w/ patient, physical exam, lab review, review of studies, review of inpatient medication list Saw/examined the patient in room 285 He is awake/alert today - difficult to understand what he is saying, still lethargic Problem List Medical Problems: (1) Acute renal failure Status: Acute (2) Altered mental status Status: Acute (3) Chest pain Status: Acute (4) Chronic renal disease Status: Acute (5) Esophageal foreign body Status: Acute (6) Hypoxia Status: Acute (7) New onset a-fib Status: Acute (8) Pneumonia Status: Acute (9) Precordial chest pain Status: Acute (10) UTI (urinary tract infection) Status: Acute (11) Weakness Status: Acute Review of Systems Respiratory: + cough, + sputum, No shortness of breath Cardiac: No chest pain due to lethargy, only a few ROS questions were asked Medications Current Inpatient Medications Medications (Trade) Dose Ordered Sig/Mike Route Start Time Stop Time Status Last Admin Dose Admin Heparin Sodium (Porcine) (Heparin Sq 5000 Unit/0.5ml) 5,000 unit Q12 SQ 04/23/16 21:00 05/23/16 20:59 04/26/16 08:15 5,000 UNIT Acetaminophen (Tylenol Tab) 650 mg Q4H PRN PO 04/23/16 11:30 05/23/16 11:29 Al Hydrox/Mg Hydrox/Simethicone (Maalox Max Susp) 15 ml Q4H PRN PO 04/23/16 11:30 05/23/16 11:29 Magnesium Hydroxide (Milk Of Magnesia Susp) 30 ml Q12H PRN PO 04/23/16 11:30 05/23/16 11:29 Ondansetron HCl (Zofran Inj) 4 mg Q6H PRN IV 04/23/16 11:30 05/23/16 11:29 Polyethylene (Miralax Powder Packet) 17 gm DAILY PRN PO 04/23/16 11:30 05/23/16 11:29 Insulin Glargine (Lantus Solostar Pen) 5 unit BID SC 04/23/16 21:00 05/23/16 20:59 04/26/16 08:15 5 UNIT Levetiracetam (Keppra Tab) 250 mg BID PO 04/23/16 21:00 05/23/16 20:59 Future Hold Glucose (Glucose 40% Gel) 15-30 GRAMS 15 GRAMS... UD PRN PO 04/23/16 12:00 05/23/16 11:59 Glucose (Glucose Chew Tab) 4-8 Tablets 4 Tabl... UD PRN PO 04/23/16 12:00 05/23/16 11:59 Dextrose (Dextrose 50% 50ML Syringe) 25-50ML OF 50% DW IV FOR... UD PRN IV 04/23/16 12:00 05/23/16 11:59 Glucagon (Glucagon Inj) 1 mg UD PRN SQ 04/23/16 12:00 05/23/16 11:59 Miscellaneous Information (Consult Glycemic Management Pharmacy) 1 ea UD N/A 04/23/16 12:39 05/23/16 12:38 Piperacillin Sod/ Tazobactam Sod 1 ea 1 ea UD PRN N/A 04/23/16 13:30 05/23/16 13:29 Piperacillin Sod/ Tazobactam Sod 3.375 gm/Dextrose 115 ml @ 28.75 mls/ hr Q8H IV 04/23/16 16:00 04/30/16 07:59 04/26/16 08:07 28.75 MLS/HR Levetiracetam 250 mg/Dextrose 102.5 ml @ 420 mls/hr Q12 IV 04/23/16 21:00 05/23/16 20:59 04/26/16 08:11 420 MLS/HR Lorazepam/Syringe (Ativan Inj/ Syringe) 1 ml @ 0.5 mls/min Q4 PRN IV 04/23/16 16:45 05/23/16 16:44 04/25/16 05:11 0.5 MLS/MIN Morphine Sulfate (MoRPHine SULFATE INJ) 1 mg Q4 PRN IV 04/23/16 16:45 05/07/16 16:44 04/24/16 13:49 1 MG Insulin Aspart (novoLOG ASPART) SLIDING SCALE If C... Q6 SC 04/23/16 18:00 05/23/16 16:29 04/24/16 05:37 1 UNITS Albuterol/ Ipratropium (Duoneb) 3 ml QIDR INH 04/24/16 08:00 05/24/16 07:59 04/26/16 11:04 3 ML Albuterol/ Ipratropium 3 ml 3 ml Q2H PRN INH 04/24/16 00:45 05/24/16 00:44 Levofloxacin 250 mg/Prmx 50 ml @ 50 mls/hr Q24H IV 04/25/16 20:00 04/30/16 20:59 04/25/16 20:23 50 MLS/HR Sodium Chloride (Nss 1000ml) 1,000 ml @ 80 mls/hr [id number] IV 04/25/16 09:15 05/25/16 09:14 04/26/16 09:01 80 MLS/HR Objective Vital Signs Date Time Temp Pulse Resp B/P Pulse Ox O2 Delivery O2 Flow Rate FiO2 04/26/16 12:00 Nasal Cannula 4.0 04/26/16 11:46 36.7 114 20 161/77 93 4.0 04/26/16 11:04 91 20 97 Venturi Mask 9.0 35 04/26/16 08:00 106 152/85 04/26/16 07:40 95 20 98 Venturi Mask 9.0 35 04/26/16 07:26 Venturi Mask 9.0 35 04/26/16 07:12 36.2 108 20 192/96 100 04/26/16 04:26 36.8 94 20 159/90 98 Non-Rebreather 9.0 04/26/16 04:00 Venturi Mask 9.0 35 04/26/16 00:00 Venturi Mask 9.0 35 04/25/16 23:11 37.2 98 18 148/91 100 Venturi Mask 9.0 04/25/16 20:00 98 Venturi Mask 50 04/25/16 19:38 37.3 112 18 149/89 100 Venturi Mask 9.0 04/25/16 19:00 88 20 100 Venturi Mask 15.0 50 04/25/16 16:00 98 Venturi Mask 50 04/25/16 15:03 36.9 78 20 140/75 91 15.0 Physical Exam General Appearance: + obese, + pertinent finding (lethargic) Respiratory/Chest: no respiratory distress, no accessory muscle use, + rhonchi Cardiovascular: regular rate, rhythm, no edema, no murmur Extremities: normal inspection, no pedal edema Neurologic/Psychiatric: alert, + pertinent finding (lethargic, oriented x 2) Laboratory Results Last 24 Hours Test 04/25/16 18:41 04/26/16 00:19 04/26/16 05:44 04/26/16 05:50 Bedside Glucose 146 mg/dl 151 mg/dl 122 mg/dl White Blood Count 9.87 K/uL Red Blood Count 4.32 M/uL Hemoglobin 13.7 g/dL Hematocrit 40.5 % Mean Corpuscular Volume 93.8 fL Mean Corpuscular Hemoglobin 31.7 pg Mean Corpuscular Hemoglobin Concent 33.8 g/dl RDW Standard Deviation 49.6 fL RDW Coefficient of Variation 14.5 % Platelet Count 152 K/uL Mean Platelet Volume 10.5 fL Sodium Level 144 mmol/L Potassium Level 4.0 mmol/L Chloride Level 106 mmol/L Carbon Dioxide Level 31 mmol/L Anion Gap 7.0 mmol/L Blood Urea Nitrogen 27 mg/dl Creatinine 1.60 mg/dl Est Creatinine Clear Calc Drug Dose 39.9 ml/min Estimated GFR () 45.8 Estimated GFR (Non- 39.5 BUN/Creatinine Ratio 16.8 Random Glucose 136 mg/dl Lactic Acid Level 1.2 mmol/L Calcium Level 8.4 mg/dl Magnesium Level 1.9 mg/dl Test 04/26/16 11:29 Bedside Glucose 180 mg/dl Assessment and Plan This is a 80 year old demented male with a complex PMH that includes tachy- waldo syndrome s/p PPM, CAD s/p stent with stable angina, hx. of CVA with multiple residual symptoms, insulin dependent DM2, CKD stage 3, solitary kidney , obstructive sleep apnea with CPAP intolerance, HTN, HLD was brought in by his daughter due to weakness, and respiratory distress. Sepsis and Metabolic Encephalopathy secondary to Aspiration Pneumonia 04/26 likely related to aspiration appreciate speech evaluation pureed and nectar thick diet started I'd like to continue Levaquin, Zosyn, Vanco for now WBC normalized; lactic acid < 2 PT/OT placed stop IVFs, encourage PO intake strict aspiration precautions 04/25 lactic acid wnl WBC improving patient is still obtunded and requiring Venturi mask added Levaquin, + Zosyn, + Vancomycin for treatment of this likely aspiration due to patient's epiglottal dysfunction continue nebs as needed, deep suctioning as needed patient is currently DNR/DNI status 04/24 severe sepsis, poor prognosis will add Levaquin to Zosyn and Vanco as per daughter's wishes giving one dose of IV Lasix neb treatments as needed nonrebreather IVFs held due to possible fluid overload recheck lactic acid and WBC in AM I spoke with the daughter in length about the poor prognosis and discussed comfort measures She is okay with giving IV morphine and IV Ativan to help him breath but would like one or two days of management prior to making him comfort measures only continue deep suctioning as tolerated 04/23 patient is septic with +fever, +leukocytosis, +lactic acidosis no clear source noted CXR noted to have some pleural effusion patient has a history of aspiration and this is likely an aspiration pneumonia started IV Zosyn patient is coming from home - lives with daughter If condition does not improve in 1-2 days - can convert to comfort measures as per daughter Saray given 4L of fluids in the ER; maintenance fluids of 100mL/hr will be started recheck lactic acid now Acute Kidney Injury superimposed on CKD stage 3 04/26 creat down to 1.6 stop IVFs 04/25 creat down to 1.8 patient with solitary kidney, currently with Zendejas catheter in place held fluids for now due to possible fluid overload, will restart fluids at a slower rate 04/24 creat from 2.6 to 2.1 seems to be getting overloaded with fluids giving low dose IV Lasix monitor kidney function - solitary kidney Zendejas catheter in place 04/23 creat up to 2.6 patient has been having decreased food intake for the past 4-5 days dehydration and infection baseline is < 2 given 4L of fluids in the ER continue IVFs and monitor kidney function Acute Respiratory Failure 04/25 acute respiratory failure secondary to pneumonia/aspiration 04/24 likely related to the pneumonia as above hypoxic en route to the hospital placed on a nonrebreather - can titrate down to nasal cannula as tolerated venous blood gas - hypercapnia, acidosis CAD s/p stent history of stent continue Plavix, b-nancie continue Imdur for stable anginal symptoms Hx. 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
--- NOTE | 2016-04-26 15:36 | Pharmacy Progress Note ---
Glycemic: Assessment & Plan Date of Service Apr 26, 2016. Assessment & Plan Item Value Date Time Bedside Glucose 151 mg/dl H 04/25/16 1141 Bedside Glucose 146 mg/dl H 04/25/16 1841 Bedside Glucose 151 mg/dl H 04/26/16 0019 Bedside Glucose 122 mg/dl H 04/26/16 0550 Bedside Glucose 180 mg/dl H 04/26/16 1129 ASSESSMENT: * 80yo T2DM male with adequate outpatient control per recent A1c. No changes needed to outpatient regimen. May even lessen outpatient regimen at discharge if patient is changed to comfort measures. * The patient is currently receiving ~10 units of insulin per day which is all basal insulin d/t decreased PO intake * Fasting BSGs in range, basal insulin dosing adequate. * Current orders are adequately maintaining glycemic control. PLAN: * Novolog per scale ACHS * Goal Range: Low 140 mg/dL - High 180 mg/dL * Correction Factor: 40 mg/dL/unit * Prandial insulin: Per carb ratio of 1 unit per 13 grams CHO consumed * Basal insulin with Lantus 5 units SQ BID * May consider d/c if changes to comfort measures * Pharmacy is signing off of glycemic consult. Please feel free to re-consult if needed.
[2016-04-26] MEDS: LEVOFLOXACIN 250MG / D5W IV SCH (21:25)
[2016-04-27] VITALS (11 sets, daily range): BP systolic 144–174; BP diastolic 68–87; PULSE 80–102; TEMP 36.8–37.6; O2SAT 95–100
[2016-04-27 05:59] LABS: HEMATOCRIT 38.5 % (42-52); MEAN CELL VOLUME 91.2 fL (80-100); MEAN CORPUSCULAR HEMOGLOBIN 31.3 pg (25-34); MEAN CORPUSCULAR HGB CONC 34.3 g/dl (32-36); MEAN PLATELET VOLUME 9.8 fL (7.4-10.4); PLATELET COUNT 149 K/uL (130-400); RED BLOOD COUNT 4.22 M/uL (4.7-6.1); WHITE BLOOD COUNT 8.17 K/uL (4.8-10.8)
[2016-04-27] MEDS: INSULIN ASPART 100 UNITS/ML 3 ML PEN SC SCH ×4 (06:30→21:00)
[2016-04-27 06:32] LABS: BUN/CREATININE RATIO 15.9 (10-20); CALCIUM 8.5 mg/dl (8.5-10.1); CREATININE 1.5 mg/dl (0.60-1.40); POTASSIUM 3.7 mmol/L (3.5-5.1)
[2016-04-27] MEDS: ALBUT/IPRATROP 3MG/0.5MG NEB 3 ML VIAL INH SCH ×4 (07:36→19:06)
[2016-04-27] MEDS: PIPERACILL/TAZOBAC IV 3.375 GM in DEXTROSE 5% 100ML IV SCH ×2 (08:35→16:14)
[2016-04-27] MEDS: LEVETIRACETAM IV 250 MG in DEXTROSE 5% 100ML 100 ML IV SCH ×2 (08:49→21:52)
[2016-04-27] MEDS: HEPARIN SOD 5000 UNIT/0.5 ML CARP SQ SCH ×2 (08:51→22:04)
[2016-04-27] MEDS: INSULIN GLARGINE SOLOSTAR 100 UNITS/ML 3 ML PEN SC SCH ×2 (08:52→22:05)
--- NOTE | 2016-04-27 17:29 | Progress Note ---
Subjective Date of Service: Apr 27, 2016. Subjective Pt evaluation today including: conversation w/ patient, physical exam, lab review, review of studies, review of inpatient medication list Saw/examined the patient in room 285 He is lethargic today, does not respond to verbal stimuli; will open eyes to tactile stimuli/sternal rub Does answer "yes" or "no" questions at times, and denies pain or shortness of breath Problem List Medical Problems: (1) Acute renal failure Status: Acute (2) Altered mental status Status: Acute (3) Chest pain Status: Acute (4) Chronic renal disease Status: Acute (5) Esophageal foreign body Status: Acute (6) Hypoxia Status: Acute (7) New onset a-fib Status: Acute (8) Pneumonia Status: Acute (9) Precordial chest pain Status: Acute (10) UTI (urinary tract infection) Status: Acute (11) Weakness Status: Acute Review of Systems difficult to obtain secondary to patient's mental status Medications Current Inpatient Medications Medications (Trade) Dose Ordered Sig/Mike Route Start Time Stop Time Status Last Admin Dose Admin Heparin Sodium (Porcine) (Heparin Sq 5000 Unit/0.5ml) 5,000 unit Q12 SQ 04/23/16 21:00 05/23/16 20:59 04/27/16 08:51 5,000 UNIT Acetaminophen (Tylenol Tab) 650 mg Q4H PRN PO 04/23/16 11:30 05/23/16 11:29 Al Hydrox/Mg Hydrox/Simethicone (Maalox Max Susp) 15 ml Q4H PRN PO 04/23/16 11:30 05/23/16 11:29 Magnesium Hydroxide (Milk Of Magnesia Susp) 30 ml Q12H PRN PO 04/23/16 11:30 05/23/16 11:29 Ondansetron HCl (Zofran Inj) 4 mg Q6H PRN IV 04/23/16 11:30 05/23/16 11:29 Polyethylene (Miralax Powder Packet) 17 gm DAILY PRN PO 04/23/16 11:30 05/23/16 11:29 Insulin Glargine (Lantus Solostar Pen) 5 unit BID SC 04/23/16 21:00 05/23/16 20:59 04/27/16 08:52 5 UNIT Levetiracetam (Keppra Tab) 250 mg BID PO 04/23/16 21:00 05/23/16 20:59 Future Hold Glucose (Glucose 40% Gel) 15-30 GRAMS 15 GRAMS... UD PRN PO 04/23/16 12:00 05/23/16 11:59 Glucose (Glucose Chew Tab) 4-8 Tablets 4 Tabl... UD PRN PO 04/23/16 12:00 05/23/16 11:59 Dextrose (Dextrose 50% 50ML Syringe) 25-50ML OF 50% DW IV FOR... UD PRN IV 04/23/16 12:00 05/23/16 11:59 Glucagon (Glucagon Inj) 1 mg UD PRN SQ 04/23/16 12:00 05/23/16 11:59 Piperacillin Sod/ Tazobactam Sod 1 ea 1 ea UD PRN N/A 04/23/16 13:30 05/23/16 13:29 Piperacillin Sod/ Tazobactam Sod 3.375 gm/Dextrose 115 ml @ 28.75 mls/ hr Q8H IV 04/23/16 16:00 04/30/16 07:59 04/27/16 16:14 28.75 MLS/HR Levetiracetam 250 mg/Dextrose 102.5 ml @ 420 mls/hr Q12 IV 04/23/16 21:00 05/23/16 20:59 04/27/16 08:49 420 MLS/HR Lorazepam/Syringe (Ativan Inj/ Syringe) 1 ml @ 0.5 mls/min Q4 PRN IV 04/23/16 16:45 05/23/16 16:44 04/25/16 05:11 0.5 MLS/MIN Morphine Sulfate (MoRPHine SULFATE INJ) 1 mg Q4 PRN IV 04/23/16 16:45 05/07/16 16:44 04/24/16 13:49 1 MG Albuterol/ Ipratropium (Duoneb) 3 ml QIDR INH 04/24/16 08:00 05/24/16 07:59 04/27/16 14:42 3 ML Albuterol/ Ipratropium 3 ml 3 ml Q2H PRN INH 04/24/16 00:45 05/24/16 00:44 Levofloxacin/Prmx (Levaquin / D5W/ Premixed D5W) 50 ml @ 50 mls/hr Q24H IV 04/25/16 20:00 04/30/16 20:59 04/26/16 21:25 50 MLS/HR Insulin Aspart (novoLOG ASPART) SLIDING SCALE If C... ACHS SC 04/26/16 21:00 05/26/16 20:59 Objective Vital Signs Date Time Temp Pulse Resp B/P Pulse Ox O2 Delivery O2 Flow Rate FiO2 04/27/16 15:06 37.0 90 18 144/80 97 04/27/16 14:42 83 20 96 Nasal Cannula 2.0 04/27/16 11:43 37.4 93 16 170/85 97 Nasal Cannula 2.0 04/27/16 11:04 80 20 96 Nasal Cannula 2.0 04/27/16 08:45 91 96 04/27/16 07:36 89 20 97 Nasal Cannula 3.0 04/27/16 07:23 37.1 82 16 158/68 96 Nasal Cannula 3.0 04/27/16 04:42 37.5 101 20 174/87 96 Nasal Cannula 3.0 04/27/16 03:19 Nasal Cannula 3.0 04/27/16 00:00 100 Nasal Cannula 4.0 04/27/16 00:00 37.6 83 20 168/72 100 Nasal Cannula 4.0 04/26/16 20:00 96 Nasal Cannula 4.0 04/26/16 19:02 80 20 97 Nasal Cannula 4.0 Physical Exam General Appearance: + pertinent finding (lethargic/somnolent) Respiratory/Chest: lungs clear, normal breath sounds, no respiratory distress, no accessory muscle use Cardiovascular: regular rate, rhythm, no edema, no murmur Laboratory Results Last 24 Hours Test 04/26/16 17:10 04/26/16 20:04 04/27/16 05:46 04/27/16 11:37 Bedside Glucose 145 mg/dl 151 mg/dl 130 mg/dl White Blood Count 8.17 K/uL Red Blood Count 4.22 M/uL Hemoglobin 13.2 g/dL Hematocrit 38.5 % Mean Corpuscular Volume 91.2 fL Mean Corpuscular Hemoglobin 31.3 pg Mean Corpuscular Hemoglobin Concent 34.3 g/dl RDW Standard Deviation 48.1 fL RDW Coefficient of Variation 14.5 % Platelet Count 149 K/uL Mean Platelet Volume 9.8 fL Sodium Level 143 mmol/L Potassium Level 3.7 mmol/L Chloride Level 106 mmol/L Carbon Dioxide Level 31 mmol/L Anion Gap 6.0 mmol/L Blood Urea Nitrogen 24 mg/dl Creatinine 1.50 mg/dl Est Creatinine Clear Calc Drug Dose 42.7 ml/min Estimated GFR () 49.5 Estimated GFR (Non- 42.7 BUN/Creatinine Ratio 15.9 Random Glucose 131 mg/dl Calcium Level 8.5 mg/dl Test 04/27/16 16:14 Bedside Glucose 139 mg/dl Assessment and Plan This is a 80 year old demented male with a complex PMH that includes tachy- waldo syndrome s/p PPM, CAD s/p stent with stable angina, hx. of CVA with multiple residual symptoms, insulin dependent DM2, CKD stage 3, solitary kidney , obstructive sleep apnea with CPAP intolerance, HTN, HLD was brought in by his daughter due to weakness, and respiratory distress. Sepsis and Metabolic Encephalopathy secondary to Aspiration Pneumonia 04/27 strict aspiration precautions with pureed diet and nectar thick liquids continue triple antibiotics for now WBC and lactic acid improved PT/OT placed 04/26 likely related to aspiration appreciate speech evaluation pureed and nectar thick diet started I'd like to continue Levaquin, Zosyn, Vanco for now WBC normalized; lactic acid < 2 PT/OT placed stop IVFs, encourage PO intake strict aspiration precautions 04/25 lactic acid wnl WBC improving patient is still obtunded and requiring Venturi mask added Levaquin, + Zosyn, + Vancomycin for treatment of this likely aspiration due to patient's epiglottal dysfunction continue nebs as needed, deep suctioning as needed patient is currently DNR/DNI status 04/24 severe sepsis, poor prognosis will add Levaquin to Zosyn and Vanco as per daughter's wishes giving one dose of IV Lasix neb treatments as needed nonrebreather IVFs held due to possible fluid overload recheck lactic acid and WBC in AM I spoke with the daughter in length about the poor prognosis and discussed comfort measures She is okay with giving IV morphine and IV Ativan to help him breath but would like one or two days of management prior to making him comfort measures only continue deep suctioning as tolerated 04/23 patient is septic with +fever, +leukocytosis, +lactic acidosis no clear source noted CXR noted to have some pleural effusion patient has a history of aspiration and this is likely an aspiration pneumonia started IV Zosyn patient is coming from home - lives with daughter If condition does not improve in 1-2 days - can convert to comfort measures as per daughter, Saray given 4L of fluids in the ER; maintenance fluids of 100mL/hr will be started recheck lactic acid now Acute Kidney Injury superimposed on CKD stage 3 04/27 creat down to 1.5 diet ordered 04/26 creat down to 1.6 stop IVFs 04/25 creat down to 1.8 patient with solitary kidney, currently with Zendejas catheter in place held fluids for now due to possible fluid overload, will restart fluids at a slower rate 04/24 creat from 2.6 to 2.1 seems to be getting overloaded with fluids giving low dose IV Lasix monitor kidney function - solitary kidney Zendejas catheter in place 04/23 creat up to 2.6 patient has been having decreased food intake for the past 4-5 days dehydration and infection baseline is < 2 given 4L of fluids in the ER continue IVFs and monitor kidney function Acute Respiratory Failure 04/25 acute respiratory failure secondary to pneumonia/aspiration 04/24 likely related to the pneumonia as above hypoxic en route to the hospital placed on a nonrebreather - can titrate down to nasal cannula as tolerated venous blood gas - hypercapnia, acidosis CAD s/p stent history of stent continue Plavix, b-nancie continue Imdur for stable anginal symptoms Hx. of CVA has had a stroke in the past - 2006 apparently has had epiglottic issues since the CVA aspiration precautions placed continue Plavix Insulin Dependent DM2 uses 13 units of Lantus nightly uses NovoLog TID will start sliding scale and Lantus 5 units BID ha1c; glycemic control consult monitor for hypoglycemia with decrease PO intake NINI should be on CPAP, though does not tolerate it use oxygen nocturnally Tachy-Waldo Syndrome s/p cardiac pacemaker in situ DVT ppx subq heparin DNR contact information for Saray, daughter and POA cell phone: [phone] work phone: [phone]
[2016-04-27] MEDS: LEVOFLOXACIN 250MG / D5W IV SCH (21:52)
[2016-04-28] VITALS (10 sets, daily range): BP systolic 150–182; BP diastolic 77–94; PULSE 67–89; TEMP 36.3–36.8; O2SAT 94–99
[2016-04-28] MEDS: PIPERACILL/TAZOBAC IV 3.375 GM in DEXTROSE 5% 100ML IV SCH ×4 (01:15→23:50)
[2016-04-28 06:11] LABS: HEMATOCRIT 38.1 % (42-52); MEAN CELL VOLUME 92.9 fL (80-100); MEAN CORPUSCULAR HEMOGLOBIN 30.7 pg (25-34); MEAN CORPUSCULAR HGB CONC 33.1 g/dl (32-36); PLATELET COUNT 165 K/uL (130-400)
[2016-04-28] MEDS: INSULIN ASPART 100 UNITS/ML 3 ML PEN SC SCH ×4 (06:30→21:00)
[2016-04-28 06:43] LABS: BUN/CREATININE RATIO 15.4 (10-20); CALCIUM 8.9 mg/dl (8.5-10.1); CREATININE 1.7 mg/dl (0.60-1.40); POTASSIUM 3.4 mmol/L (3.5-5.1)
[2016-04-28] MEDS: ALBUT/IPRATROP 3MG/0.5MG NEB 3 ML VIAL INH SCH ×4 (07:31→20:00)
[2016-04-28] MEDS: LEVETIRACETAM IV 250 MG in DEXTROSE 5% 100ML 100 ML IV SCH ×2 (08:15→21:18)
[2016-04-28] MEDS: INSULIN GLARGINE SOLOSTAR 100 UNITS/ML 3 ML PEN SC SCH ×2 (09:07→21:19)
[2016-04-28] MEDS: HEPARIN SOD 5000 UNIT/0.5 ML CARP SQ SCH ×2 (09:07→21:20)
[2016-04-28] MEDS ORDERED: POTASSIUM CHLR 20 MEQ / WTR 20 MEQ in PREMIXED WATER 100 ML IV STA (09:12)
--- NOTE | 2016-04-28 09:22 | Progress Note ---
Subjective Date of Service: Apr 28, 2016. Subjective Pt evaluation today including: conversation w/ patient, physical exam, lab review, review of studies, review of inpatient medication list Saw/examined the patient in room 285-2 He is more awake and alert with periods of altering levels of consciousness Denies chest pain, denies shortness of breath +coughing during exam Answered a few questions before going back to sleep Problem List Medical Problems: (1) Acute renal failure Status: Acute (2) Altered mental status Status: Acute (3) Chest pain Status: Acute (4) Chronic renal disease Status: Acute (5) Esophageal foreign body Status: Acute (6) Hypoxia Status: Acute (7) New onset a-fib Status: Acute (8) Pneumonia Status: Acute (9) Precordial chest pain Status: Acute (10) UTI (urinary tract infection) Status: Acute (11) Weakness Status: Acute Review of Systems Respiratory: + cough, + sputum, No shortness of breath Cardiac: No chest pain Due to mental status, complete ROS could not be performed Medications Current Inpatient Medications Medications (Trade) Dose Ordered Sig/Mike Route Start Time Stop Time Status Last Admin Dose Admin Heparin Sodium (Porcine) (Heparin Sq 5000 Unit/0.5ml) 5,000 unit Q12 SQ 04/23/16 21:00 05/23/16 20:59 04/28/16 09:07 5,000 UNIT Acetaminophen (Tylenol Tab) 650 mg Q4H PRN PO 04/23/16 11:30 05/23/16 11:29 Al Hydrox/Mg Hydrox/Simethicone (Maalox Max Susp) 15 ml Q4H PRN PO 04/23/16 11:30 05/23/16 11:29 Magnesium Hydroxide (Milk Of Magnesia Susp) 30 ml Q12H PRN PO 04/23/16 11:30 05/23/16 11:29 Ondansetron HCl (Zofran Inj) 4 mg Q6H PRN IV 04/23/16 11:30 05/23/16 11:29 Polyethylene (Miralax Powder Packet) 17 gm DAILY PRN PO 04/23/16 11:30 05/23/16 11:29 Insulin Glargine (Lantus Solostar Pen) 5 unit BID SC 04/23/16 21:00 05/23/16 20:59 04/28/16 09:07 5 UNIT Levetiracetam (Keppra Tab) 250 mg BID PO 04/23/16 21:00 05/23/16 20:59 Future Hold Glucose (Glucose 40% Gel) 15-30 GRAMS 15 GRAMS... UD PRN PO 04/23/16 12:00 05/23/16 11:59 Glucose (Glucose Chew Tab) 4-8 Tablets 4 Tabl... UD PRN PO 04/23/16 12:00 05/23/16 11:59 Dextrose (Dextrose 50% 50ML Syringe) 25-50ML OF 50% DW IV FOR... UD PRN IV 04/23/16 12:00 05/23/16 11:59 Glucagon (Glucagon Inj) 1 mg UD PRN SQ 04/23/16 12:00 05/23/16 11:59 Piperacillin Sod/ Tazobactam Sod 1 ea 1 ea UD PRN N/A 04/23/16 13:30 05/23/16 13:29 Piperacillin Sod/ Tazobactam Sod 3.375 gm/Dextrose 115 ml @ 28.75 mls/ hr Q8H IV 04/23/16 16:00 04/30/16 07:59 04/28/16 08:18 28.75 MLS/HR Levetiracetam 250 mg/Dextrose 102.5 ml @ 420 mls/hr Q12 IV 04/23/16 21:00 05/23/16 20:59 04/28/16 08:15 420 MLS/HR Lorazepam/Syringe (Ativan Inj/ Syringe) 1 ml @ 0.5 mls/min Q4 PRN IV 04/23/16 16:45 05/23/16 16:44 04/25/16 05:11 0.5 MLS/MIN Morphine Sulfate (MoRPHine SULFATE INJ) 1 mg Q4 PRN IV 04/23/16 16:45 05/07/16 16:44 04/24/16 13:49 1 MG Albuterol/ Ipratropium (Duoneb) 3 ml QIDR INH 04/24/16 08:00 05/24/16 07:59 04/28/16 07:31 3 ML Albuterol/ Ipratropium 3 ml 3 ml Q2H PRN INH 04/24/16 00:45 05/24/16 00:44 Levofloxacin/Prmx (Levaquin / D5W/ Premixed D5W) 50 ml @ 50 mls/hr Q24H IV 04/25/16 20:00 04/30/16 20:59 04/27/16 21:52 50 MLS/HR Insulin Aspart SLIDING SCALE If C... ACHS SC 04/26/16 21:00 05/26/16 20:59 Sodium Chloride 1,000 ml @ 80 mls/hr [id number] IV 04/28/16 09:15 05/28/16 09:14 UNV Potassium Chloride/Prmx (Kcl 20 Meq / Wtr/Premixed Water) 100 ml @ 50 mls/hr NOW STAT IV 04/28/16 09:12 04/28/16 11:11 UNV Objective Vital Signs Date Time Temp Pulse Resp B/P Pulse Ox O2 Delivery O2 Flow Rate FiO2 04/28/16 07:37 36.8 67 18 182/92 98 2.0 04/28/16 07:31 68 20 98 Nasal Cannula 2.0 04/28/16 04:00 36.6 75 20 150/82 98 2.0 04/28/16 04:00 Nasal Cannula 2.0 04/28/16 00:00 Nasal Cannula 2.0 04/27/16 20:00 Nasal Cannula 2.0 04/27/16 19:52 36.8 102 20 164/68 95 Nasal Cannula 2.0 04/27/16 19:08 92 20 96 Nasal Cannula 2.0 04/27/16 16:00 Nasal Cannula 4.0 04/27/16 15:06 37.0 90 18 144/80 97 04/27/16 14:42 83 20 96 Nasal Cannula 2.0 04/27/16 12:00 Nasal Cannula 4.0 04/27/16 11:43 37.4 93 16 170/85 97 Nasal Cannula 2.0 04/27/16 11:04 80 20 96 Nasal Cannula 2.0 Physical Exam General Appearance: + pertinent finding (altering levels of consciousness; periods of cloudiness - awake/alert, and answered a few questions, but became tired/lethargic and went back to sleep) Respiratory/Chest: lungs clear, normal breath sounds, no respiratory distress, no accessory muscle use Cardiovascular: regular rate, rhythm, no edema, no murmur Extremities: normal inspection, no pedal edema Laboratory Results Last 24 Hours Test 04/27/16 11:37 04/27/16 16:14 04/27/16 20:27 04/28/16 05:10 Bedside Glucose 130 mg/dl 139 mg/dl 150 mg/dl White Blood Count 8.60 K/uL Red Blood Count 4.10 M/uL Hemoglobin 12.6 g/dL Hematocrit 38.1 % Mean Corpuscular Volume 92.9 fL Mean Corpuscular Hemoglobin 30.7 pg Mean Corpuscular Hemoglobin Concent 33.1 g/dl RDW Standard Deviation 50.5 fL RDW Coefficient of Variation 14.7 % Platelet Count 165 K/uL Mean Platelet Volume 10.0 fL Sodium Level 145 mmol/L Potassium Level 3.4 mmol/L Chloride Level 106 mmol/L Carbon Dioxide Level 32 mmol/L Anion Gap 7.0 mmol/L Blood Urea Nitrogen 26 mg/dl Creatinine 1.70 mg/dl Est Creatinine Clear Calc Drug Dose 37.5 ml/min Estimated GFR () 42.6 Estimated GFR (Non- 36.7 BUN/Creatinine Ratio 15.4 Random Glucose 138 mg/dl Calcium Level 8.9 mg/dl Test 04/28/16 07:24 Bedside Glucose 127 mg/dl Assessment and Plan This is a 80 year old demented male with a complex PMH that includes tachy- waldo syndrome s/p PPM, CAD s/p stent with stable angina, hx. of CVA with multiple residual symptoms, insulin dependent DM2, CKD stage 3, solitary kidney , obstructive sleep apnea with CPAP intolerance, HTN, HLD was brought in by his daughter due to weakness, and respiratory distress. Sepsis and Metabolic Encephalopathy secondary to Aspiration Pneumonia 04/28 Plan today is to continue IV antibiotics add back gentle hydration (NS @ 80mL/hr) strict aspiration precautions, pureed diet/nectar thick liquids - appreciate speech evaluation WBC and lactic acid normalized; afebrile; hemodynamically stable periods of encephalopathy persist switch to oral medications in a few days ordered PT/OT - due to patient's mental status, this has not been able to be complete will need SNF placement on discharge Saray thomson - contact information (see below) aware of plan 04/27 strict aspiration precautions with pureed diet and nectar thick liquids continue triple antibiotics for now WBC and lactic acid improved PT/OT placed 04/26 likely related to aspiration appreciate speech evaluation pureed and nectar thick diet started I'd like to continue Levaquin, Zosyn, Vanco for now WBC normalized; lactic acid < 2 PT/OT placed stop IVFs, encourage PO intake strict aspiration precautions 04/25 lactic acid wnl WBC improving patient is still obtunded and requiring Venturi mask added Levaquin, + Zosyn, + Vancomycin for treatment of this likely aspiration due to patient's epiglottal dysfunction continue nebs as needed, deep suctioning as needed patient is currently DNR/DNI status 04/24 severe sepsis, poor prognosis will add Levaquin to Zosyn and Vanco as per daughter's wishes giving one dose of IV Lasix neb treatments as needed nonrebreather IVFs held due to possible fluid overload recheck lactic acid and WBC in AM I spoke with the daughter in length about the poor prognosis and discussed comfort measures She is okay with giving IV morphine and IV Ativan to help him breath but would like one or two days of management prior to making him comfort measures only continue deep suctioning as tolerated 04/23 patient is septic with +fever, +leukocytosis, +lactic acidosis no clear source noted CXR noted to have some pleural effusion patient has a history of aspiration and this is likely an aspiration pneumonia started IV Zosyn patient is coming from home - lives with daughter If condition does not improve in 1-2 days - can convert to comfort measures as per daughterSaray given 4L of fluids in the ER; maintenance fluids of 100mL/hr will be started recheck lactic acid now Acute Kidney Injury superimposed on CKD stage 3 04/28 creat up to 1.7 likely due to inadequate PO intake gentle IVF hydration restarted 04/27 creat down to 1.5 diet ordered 04/26 creat down to 1.6 stop IVFs 04/25 creat down to 1.8 patient with solitary kidney, currently with Zendejas catheter in place held fluids for now due to possible fluid overload, will restart fluids at a slower rate 04/24 creat from 2.6 to 2.1 seems to be getting overloaded with fluids giving low dose IV Lasix monitor kidney function - solitary kidney Zendejas catheter in place 04/23 creat up to 2.6 patient has been having decreased food intake for the past 4-5 days dehydration and infection baseline is < 2 given 4L of fluids in the ER continue IVFs and monitor kidney function Acute Respiratory Failure 04/28 clinically improving currently with nasal cannula O2 can wean supplemental O2 as tolerated To use oxygen while he is asleep due to NINI 04/25 acute respiratory failure secondary to pneumonia/aspiration 04/24 likely related to the pneumonia as above hypoxic en route to the hospital placed on a nonrebreather - can titrate down to nasal cannula as tolerated venous blood gas - hypercapnia, acidosis CAD s/p stent history of stent continue Plavix, b-nancie continue Imdur for stable anginal symptoms Hx. of CVA has had a stroke in the past - 2006 apparently has had epiglottic issues since the CVA aspiration precautions placed continue Plavix Insulin Dependent DM2 uses 13 units of Lantus nightly uses NovoLog TID will start sliding scale and Lantus 5 units BID ha1c; glycemic control consult monitor for hypoglycemia with decrease PO intake NINI should be on CPAP, though does not tolerate it use oxygen nocturnally and while he is asleep Tachy-Waldo Syndrome s/p cardiac pacemaker in situ DVT ppx subq heparin DNR contact information for Saray, daughter and POA cell phone: [phone] work phone: [phone]
[2016-04-28] MEDS: SODIUM CHLORIDE 0.9% 1000ML 1,000 ML IV SCH ×2 (09:56→21:26)
[2016-04-28] MEDS: POTASSIUM CHLR 10MEQ / WTR IV SCH ×2 (09:57→11:37)
[2016-04-28] MEDS: LEVOFLOXACIN 250MG / D5W IV SCH (20:42)
[2016-04-29] VITALS (11 sets, daily range): BP systolic 107–176; BP diastolic 67–91; PULSE 71–88; TEMP 36.4–37; O2SAT 94–100
[2016-04-29 06:03] LABS: HEMATOCRIT 39.2 % (42-52); MEAN CELL VOLUME 92.9 fL (80-100); MEAN CORPUSCULAR HGB CONC 33.4 g/dl (32-36); MEAN PLATELET VOLUME 9.7 fL (7.4-10.4); PLATELET COUNT 169 K/uL (130-400); RED BLOOD COUNT 4.22 M/uL (4.7-6.1); WHITE BLOOD COUNT 8.72 K/uL (4.8-10.8)
[2016-04-29 06:37] LABS: BUN/CREATININE RATIO 14.5 (10-20); CALCIUM 8.2 mg/dl (8.5-10.1); CREATININE 1.5 mg/dl (0.60-1.40); MAGNESIUM 2.2 mg/dl (1.8-2.4); POTASSIUM 3.9 mmol/L (3.5-5.1)
[2016-04-29] MEDS: ALBUT/IPRATROP 3MG/0.5MG NEB 3 ML VIAL INH SCH ×4 (07:20→19:47)
[2016-04-29] MEDS: HEPARIN SOD 5000 UNIT/0.5 ML CARP SQ SCH ×2 (09:00→22:24)
[2016-04-29] MEDS: INSULIN ASPART 100 UNITS/ML 3 ML PEN SC SCH ×4 (09:03→22:23)
[2016-04-29] MEDS: LEVETIRACETAM IV 250 MG in DEXTROSE 5% 100ML 100 ML IV SCH (09:04)
[2016-04-29] MEDS: PIPERACILL/TAZOBAC IV 3.375 GM in DEXTROSE 5% 100ML IV SCH (09:04)
[2016-04-29] MEDS: INSULIN GLARGINE SOLOSTAR 100 UNITS/ML 3 ML PEN SC SCH ×2 (09:09→22:24)
[2016-04-29] MEDS: SODIUM CHLORIDE 0.9% 1000ML 1,000 ML IV SCH (10:43)
--- NOTE | 2016-04-29 16:51 | Progress Note ---
Internal Med Progress Note Date of Service: Apr 29, 2016. Provider Documentation: SUBJECTIVE: remains lethargic , sedated , opens eyes to voice able to answer simple questions , having moist cough when asking denies of any SOB , falls back to sleep easily OBJECTIVE: Vital Signs-as noted below Exam: General-elderly male, lethargic, arousable Eyes-sclera non icteric ENT-moist oral mucosa Lungs-scattered wheeze Heart-regular Abdomen-soft , Extremities-has waffle boots Neuro-lethargic , opens eyes , episodes of confusion , oriented to person only Lab data as noted below. ASSESSMENT & PLAN: This is a 80 year old demented male with a complex PMH that includes tachy- waldo syndrome s/p PPM, CAD s/p stent with stable angina, hx. of CVA with multiple residual symptoms, insulin dependent DM2, CKD stage 3, solitary kidney , obstructive sleep apnea with CPAP intolerance, HTN, HLD was brought in by his daughter due to weakness, and respiratory distress. Sepsis and Metabolic Encephalopathy secondary to Aspiration Pneumonia strict aspiration precautions, pureed diet/nectar thick liquids - appreciate speech evaluation WBC and lactic acid normalized; afebrile; hemodynamically stable periods of encephalopathy persist will D/C IV Zosyn , changed Levaquin to PO Day # 4 total 7 days tx Acute Respiratory Failure acute respiratory failure secondary to pneumonia/aspiration improved Acute Kidney Injury superimposed on CKD stage 3 likely due to inadequate PO intake creat improved D/c IVF CAD s/p stent continue Plavix, b-nancie, Imdur no anginal symptoms Hx. of CVA has had a stroke in the past - 2006 continue Plavix Insulin Dependent DM2 insulin sliding scale and Lantus 5 units BID glycemic control consult with Pharmacy Tachy-Waldo Syndrome s/p cardiac pacemaker placement DVT ppx sub q heparin DNR contact information for Saray, daughter and POA cell phone: [phone] work phone: [phone] DISPOSITION to be determined previously was living with Daughter ; has 01/09 care was ambulatory with assistance now requiring 1-2 person assist with complete care as per CM note Daughter wants pt to return home with Home subhash and 01/09 care Called daughter to D/w discharge planning -unable to connect will attempt to call tomorrow Vital Signs: Date Time Temp Pulse Resp B/P Pulse Ox O2 Delivery O2 Flow Rate FiO2 04/29/16 16:00 98 Nasal Cannula 2.0 04/29/16 15:51 37.0 88 18 107/67 99 Nasal Cannula 2.0 04/29/16 15:23 76 20 98 Nasal Cannula 2.0 04/29/16 12:00 98 Nasal Cannula 2.0 04/29/16 11:47 36.6 71 18 168/91 100 2.0 04/29/16 08:00 98 Nasal Cannula 2.0 04/29/16 07:26 36.4 73 18 176/81 98 Nasal Cannula 2.0 04/29/16 07:20 79 20 99 Nasal Cannula 2.0 04/29/16 04:00 Nasal Cannula 3.0 04/29/16 04:00 Nasal Cannula 3.0 04/29/16 03:48 36.6 82 20 141/68 94 Nasal Cannula 2.0 04/29/16 00:00 Nasal Cannula 3.0 04/28/16 23:43 36.6 82 20 155/82 94 Nasal Cannula 2.0 04/28/16 20:01 84 20 97 Nasal Cannula 2.0 04/28/16 20:00 Nasal Cannula 3.0 04/28/16 19:42 36.6 82 18 169/77 95 Nasal Cannula 2.0 Lab Results: Results Past 24 Hours Test 04/28/16 20:39 04/29/16 05:20 04/29/16 07:33 04/29/16 11:39 Range/Units Bedside Glucose 147 118 143 70-99 mg/dl White Blood Count 8.72 4.8-10.8 K/uL Red Blood Count 4.22 4.7-6.1 M/uL Hemoglobin 13.1 14.0-18.0 g/dL Hematocrit 39.2 42-52 % Mean Corpuscular Volume 92.9 80-100 fL Mean Corpuscular Hemoglobin 31.0 25-34 pg Mean Corpuscular Hemoglobin Concent 33.4 32-36 g/dl RDW Standard Deviation 49.6 36.4-46.3 fL RDW Coefficient of Variation 14.6 11.5-14.5 % Platelet Count 169 130-400 K/uL Mean Platelet Volume 9.7 7.4-10.4 fL Sodium Level 145 136-145 mmol/L Potassium Level 3.9 3.5-5.1 mmol/L Chloride Level 106 98-107 mmol/L Carbon Dioxide Level 34 21-32 mmol/L Anion Gap 5.0 3-11 mmol/L Blood Urea Nitrogen 22 7-18 mg/dl Creatinine 1.50 0.60-1.40 mg/dl Est Creatinine Clear Calc Drug Dose 42.6 ml/min Estimated GFR () 49.5 Estimated GFR (Non- 42.7 BUN/Creatinine Ratio 14.5 10-20 Random Glucose 125 70-99 mg/dl Calcium Level 8.2 8.5-10.1 mg/dl Magnesium Level 2.2 1.8-2.4 mg/dl Test 04/29/16 16:12 Range/Units Bedside Glucose 151 70-99 mg/dl
[2016-04-29 21:53] LABS: URINE APPEARANCE CLEAR (CLEAR); URINE BILIRUBIN NEG (NEG); URINE COLOR DK YELLOW; URINE EPITHELIAL CELL AUTO 20-30 /lpf (0-5); URINE NITRITE NEG (NEG); URINE SPECIFIC GRAVITY 1.023 (1.000-1.030); UROBILINOGEN POS (NEG)
[2016-04-29 21:59] LABS: MANUAL MICROSCOPIC REQUIRED? NO; REVIEW REQ? YES
[2016-04-29 22:20] LABS: URINE PATH CASTS 0-3 GRANULAR CASTS /lpf (0)
[2016-04-29] MEDS: LEVETIRACETAM 250 MG TAB PO SCH (22:20)
[2016-04-29 22:38] LABS: ZZURINE CULT IF INDIC CATH NO
[2016-04-30] VITALS (12 sets, daily range): BP systolic 136–181; BP diastolic 71–94; PULSE 68–92; TEMP 36.4–36.7; O2SAT 95–99
[2016-04-30] MEDS: ALBUT/IPRATROP 3MG/0.5MG NEB 3 ML VIAL INH SCH ×4 (08:27→19:01)
--- NOTE | 2016-04-30 08:44 | DIAGNOSTIC IMAGING REPORT ---
CHEST ONE VIEW PORTABLE CLINICAL HISTORY: CHF /pneumonia dyspnea COMPARISON STUDY: 04/26/2016 FINDINGS: Mildly progressive components of congestive failure versus pulmonary edema. Persistent consolidative change left base. Developing consolidative change peripheral right base. IMPRESSION: Progressive components of congestive failure versus pulmonary edema. Electronically signed by: Johnson Nolasco M.D. 04/30/2016 8:42 AM Dictated Date/Time: 04/30/2016 8:42 AM
[2016-04-30] MEDS: LEVETIRACETAM 250 MG TAB PO SCH ×2 (08:45→20:32)
[2016-04-30] MEDS: INSULIN ASPART 100 UNITS/ML 3 ML PEN SC SCH ×4 (08:52→20:36)
[2016-04-30] MEDS: HEPARIN SOD 5000 UNIT/0.5 ML CARP SQ SCH ×2 (08:53→20:37)
[2016-04-30] MEDS: INSULIN GLARGINE SOLOSTAR 100 UNITS/ML 3 ML PEN SC SCH ×2 (08:53→20:37)
--- NOTE | 2016-04-30 20:04 | Progress Note ---
Internal Med Progress Note Date of Service: Apr 30, 2016. Provider Documentation: SUBJECTIVE: more awake and alert now able to answer simple questions cough has improved Daughter Jackie present at bedside OBJECTIVE: Vital Signs-as noted below Exam: General-elderly male, awake , able to answer simple questions Eyes-sclera non icteric ENT-moist oral mucosa Lungs-improved auscultation , minimum wheeze Heart-regular Abdomen-soft , Extremities-trace pedal edema, chronic skin changes, healed skin tears on left knee Neuro-baseline dementia, confusion , oriented to person only , awake Lab data as noted below. ASSESSMENT & PLAN: This is a 80 year old demented male with a complex PMH that includes tachy- waldo syndrome s/p PPM, CAD s/p stent with stable angina, hx. of CVA with multiple residual symptoms, insulin dependent DM2, CKD stage 3, solitary kidney , obstructive sleep apnea with CPAP intolerance, HTN, HLD was brought in by his daughter due to weakness, and respiratory distress. Sepsis and Metabolic Encephalopathy secondary to Aspiration Pneumonia strict aspiration precautions, pureed diet/nectar thick liquids - appreciate speech evaluation WBC and lactic acid normalized; afebrile; hemodynamically stable mental status gradually improving to baseline on PO Levaquin Day # 5 needs total 7 days tx Acute Respiratory Failure resolved presented with acute respiratory failure secondary to pneumonia/aspiration Acute Kidney Injury superimposed on CKD stage 3 likely due to inadequate PO intake creat improved to baseline CAD s/p stent continue Plavix, b-nancie, Imdur no anginal symptoms Hx. of CVA has had a stroke in the past - 2006 continue Plavix Insulin Dependent DM2 insulin sliding scale and Lantus 5 units BID glycemic control consult with Pharmacy Tachy-Waldo Syndrome s/p cardiac pacemaker placement DVT ppx sub q heparin DNR DISPOSITION D/W Daughter DIANE [facility] living with Daughter ; has 24/ care as per Daughter -feels that she has adequate support to take care of the patient at home wants referral made for home health visiting nurse for periodic vital check and pressure ulcer /wound care CM aware -referral made for [facility] to return pt home with Daughter in 1-2 days Vital Signs: Date Time Temp Pulse Resp B/P Pulse Ox O2 Delivery O2 Flow Rate FiO2 04/30/16 20:00 Nasal Cannula 2.0 04/30/16 19:53 36.7 79 16 136/71 95 Nasal Cannula 2.0 3/22/17 19:01 74 20 96 Nasal Cannula 2.0 04/30/16 16:00 Nasal Cannula 2.0 04/30/16 15:29 68 20 97 Nasal Cannula 2.0 04/30/16 15:08 36.7 75 22 168/78 99 Nasal Cannula 2.0 04/30/16 12:00 96 Nasal Cannula 2.0 04/30/16 11:37 36.7 92 20 137/81 96 2.0 04/30/16 11:20 76 20 95 Nasal Cannula 2.0 04/30/16 08:00 98 Nasal Cannula 2.0 04/30/16 07:40 36.5 73 20 160/94 97 04/30/16 07:23 76 20 98 Nasal Cannula 2.0 04/30/16 04:13 36.6 69 20 168/79 96 Nasal Cannula 2.0 04/30/16 04:00 Nasal Cannula 2.0 04/29/16 23:59 Nasal Cannula 2.0 04/29/16 23:53 36.8 81 18 163/82 97 Nasal Cannula 2.0 Lab Results: Results Past 24 Hours Test 04/30/16 07:32 04/30/16 11:29 04/30/16 16:29 04/30/16 20:06 Range/Units Bedside Glucose 102 151 153 186 70-99 mg/dl
[2016-05-01] VITALS (11 sets, daily range): BP systolic 150–176; BP diastolic 70–91; PULSE 70–81; TEMP 36.5–36.8; O2SAT 90–100
[2016-05-01] MEDS: ALBUT/IPRATROP 3MG/0.5MG NEB 3 ML VIAL INH SCH ×4 (07:25→19:59)
[2016-05-01] MEDS: INSULIN ASPART 100 UNITS/ML 3 ML PEN SC SCH ×4 (08:18→21:00)
[2016-05-01] MEDS: LEVETIRACETAM 250 MG TAB PO SCH ×2 (08:19→21:06)
[2016-05-01] MEDS: INSULIN GLARGINE SOLOSTAR 100 UNITS/ML 3 ML PEN SC SCH ×2 (08:24→21:06)
[2016-05-01] MEDS: HEPARIN SOD 5000 UNIT/0.5 ML CARP SQ SCH ×2 (08:24→21:07)
--- NOTE | 2016-05-01 21:53 | Progress Note ---
Internal Med Progress Note Date of Service: May 01, 2016. Provider Documentation: SUBJECTIVE: appears to be more awake and alert answering questions asks when he can go home has minimum cough no evidence of SOB or respiratory distress OBJECTIVE: Vital Signs-as noted below Exam: General-elderly male, awake , able to answer simple questions Eyes-sclera non icteric ENT-moist oral mucosa Lungs-improved auscultation , minimum wheeze Heart-regular Abdomen-soft , Extremities-trace pedal edema, chronic skin changes, healed skin tears on left knee Neuro-baseline dementia, confusion , oriented to person only , awake Lab data as noted below. ASSESSMENT & PLAN: This is a 80 year old demented male with a complex PMH that includes tachy- gerald syndrome s/p PPM, CAD s/p stent with stable angina, hx. of CVA with multiple residual symptoms, insulin dependent DM2, CKD stage 3, solitary kidney , obstructive sleep apnea with CPAP intolerance, HTN, HLD was brought in by his daughter due to weakness, and respiratory distress. Sepsis and Metabolic Encephalopathy secondary to Aspiration Pneumonia strict aspiration precautions, pureed diet/nectar thick liquids - appreciate speech evaluation WBC and lactic acid normalized; afebrile; hemodynamically stable mental status gradually improved to baseline on PO Levaquin Day # 6 needs total 7 days tx Acute Respiratory Failure resolved presented with acute respiratory failure secondary to pneumonia/aspiration currently in room air , not requiring any 02 supplement Acute Kidney Injury superimposed on CKD stage 3 likely due to inadequate PO intake creat improved to baseline CAD s/p stent continue Plavix, b-nancie, Imdur no anginal symptoms Hx. of CVA has had a stroke in the past - 2006 continue Plavix Insulin Dependent DM2 insulin sliding scale and Lantus 5 units BID glycemic control consult with Pharmacy Tachy-Gerald Syndrome s/p cardiac pacemaker placement DVT ppx sub q heparin DNR DISPOSITION D/W Daughter DIANE Campa living with Daughter ; has 01/09 care as per Daughter -feels that she has adequate support to take care of the patient at home wants referral made for home health visiting nurse for periodic vital check and pressure ulcer /wound care CM aware -referral made for [facility] Daughter wants to will spanish moss picker pt tomorrow for at 11 am Vital Signs: Date Time Temp Pulse Resp B/P Pulse Ox O2 Delivery O2 Flow Rate FiO2 05/02/16 11:16 67 16 98 Room Air 05/02/16 11:11 36.5 76 20 93 Venturi Mask 05/02/16 08:00 93 Nasal Cannula 2.0 05/02/16 07:22 36.5 76 20 160/81 93 Room Air 05/02/16 07:10 77 16 93 Room Air 05/02/16 04:39 36.6 68 18 148/61 95 Room Air 05/02/16 04:00 Nasal Cannula 2.0 05/01/16 23:59 Nasal Cannula 2.0 05/01/16 23:46 36.6 81 18 167/83 90 Room Air 05/01/16 20:00 Room Air 05/01/16 19:54 36.7 75 16 150/77 94 Room Air 05/01/16 16:00 93 Room Air 05/01/16 15:44 36.6 71 18 166/77 93 Room Air 05/01/16 15:33 72 16 93 Room Air 05/01/16 12:00 95 Nasal Cannula 2.0 Lab Results: Results Past 24 Hours Test 05/01/16 11:26 05/01/16 16:20 05/01/16 21:03 05/02/16 07:38 Range/Units Bedside Glucose 133 155 163 118 70-99 mg/dl
[2016-05-02] VITALS (10 sets, daily range): BP systolic 148–160; BP diastolic 61–97; PULSE 67–122; TEMP 36.5–36.6; O2SAT 90–98
[2016-05-02] MEDS: ALBUT/IPRATROP 3MG/0.5MG NEB 3 ML VIAL INH SCH ×4 (07:07→20:00)
[2016-05-02] MEDS: INSULIN ASPART 100 UNITS/ML 3 ML PEN SC SCH ×4 (08:18→21:33)
[2016-05-02] MEDS: LEVETIRACETAM 250 MG TAB PO SCH ×2 (08:20→21:34)
[2016-05-02] MEDS: HEPARIN SOD 5000 UNIT/0.5 ML CARP SQ SCH ×2 (08:24→21:38)
[2016-05-02] MEDS: INSULIN GLARGINE SOLOSTAR 100 UNITS/ML 3 ML PEN SC SCH ×2 (08:24→21:38)
[2016-05-02] MEDS ORDERED: LEVO-17 PO (11:26)
--- NOTE | 2016-05-02 11:28 | Discharge Instructions ---
Discharge Instructions Date of Service May 02, 2016. Admission Reason for Admission: Aspiration Into Airway, Pneumonia, Sepsis Discharge Discharge Diagnosis / Problem: SEPSIS /ASPIRATION PNEUMONIA /METABOLIC ENCEPHALOPATHY Discharge Goals Goal(s): Increase independence, Improve disease control, Diagnostic testing, Therapeutic intervention Activity Recommendations Activity Limitations: as noted below ( TOLERATED ) Shower/Bathe: no limitations . Instructions / Follow-Up Instructions / Follow-Up HOSPITAL FOLLOW UP WITH DR ORTIZ ON Thursday05/06/16 @ 2: 10 PM DIET HAS BEEN CHANGED TO PREVENT ASPIRATION : PUREED DIET WITH NECTAR THICK LIQUID -.Only feed when alert and awake and Fully upright -. Aspiration precautions- NO mixed consistencies. NO STRAWS ~Stringent oral Hygiene- clean mouth PRIOR to oral intake in the morning and after meals and before going to bed at night ~Mouth care q shift to minimize oral bacteria that can be aspirated in the saliva -. Supervision with all intake for impulsivity-assistance with intake when needed. -. Safe swallow strategies, small bites, small sips, slow rate, check mouth after meal for pocketing Current Hospital Diet Patient's current hospital diet: Diabetes Type 2 Diet Discharge Diet Recommended Diet: Diabetes Type 2 Diet Diet Texture: Pureed (blended smooth) Liquid Consistency: [place] Thick Pending Studies Studies pending at discharge: no Laboratory Results Hemoglobin A1c Test 04/24/16 01:30 Range/Units Estimated Average Glucose 160 mg/dl Hemoglobin A1c 7.2 H 4.5-5.6 % Medical Emergencies . Who to Call and When: Medical Emergencies: If at any time you feel your situation is an emergency, please call 911 immediately. . Non-Emergent Contact Non-Emergency issues call your: Primary Care Provider . . "Provider Documentation" section prepared by Jaky Bonner. VTE Core Measure Inpt VTE Proph given/why not?: Unfractionated heparin SQ [place] Drug Monitoring Program Search Results: no issues identified
[2016-05-02] MEDS ORDERED: LEVOFLOXACIN 250 MG TAB PO ONE (11:30)
--- NOTE | 2016-05-02 11:41 | Discharge Summary ---
Discharge Summary Date of Service May 02, 2016. Discharge Summary Admission Date: Apr 23, 2016 at 11:29 Discharge Date: May 03, 2016 Discharge Disposition: Home with services Admission Information HPI (per Admitting provider): This is a 80 year old demented male with a complex PMH that includes tachy- gerald syndrome s/p PPM, CAD s/p stent with stable angina, hx. of CVA with multiple residual symptoms, insulin dependent DM2, CKD stage 3, solitary kidney , obstructive sleep apnea - failed outpatient CPAP, HTN, HLD was brought in by his daughter due to weakness, and respiratory distress. All of the history is obtained from the daughter. He has had weakness and shortness of breath since the weekend, he had a fall on 04/22 - and today the breathing just got a lot worse. 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 His uvula was removed due to his significant apnea nocturnally and his failed CPAP use at home (did not tolerate it well). On presentation here, WBC was elevated, lactic acid found to be > 5 - patient was hypoxic and placed on a non-rebreather for now. He is currently asleep and lethargic, somewhat arousable, but goes back to sleep. He becomes apneic during sleep. Physical Exam (per Admitting): General Appearance: + pertinent finding (somnolent, lethargic, nonbreather on face; snoring loudly with periods of apnea; +accessory muscle use for respirations) Head: + pertinent finding (+laceration above left eye) Respiratory/Chest: + accessory muscle use, + rhonchi Cardiovascular: regular rate, rhythm, no edema, no murmur Extremities/Musculoskelatal: normal capillary refill, no pedal edema Neurologic/Psych: + pertinent finding (lethargic) Skin: normal color Hospital Course This is a 80 year old demented male with a complex PMH that includes tachy- gerald syndrome s/p PPM, CAD s/p stent with stable angina, hx. of CVA with multiple residual symptoms, insulin dependent DM2, CKD stage 3, solitary kidney , obstructive sleep apnea with CPAP intolerance, HTN, HLD was brought in by his daughter due to weakness, and respiratory distress. Sepsis and Metabolic Encephalopathy secondary to Aspiration Pneumonia strict aspiration precautions, pureed diet/nectar thick liquids - appreciate speech evaluation WBC and lactic acid normalized; afebrile; hemodynamically stable mental status gradually improved to baseline on PO Levaquin Day # 6 needs total 7 days tx Acute Respiratory Failure resolved presented with acute respiratory failure secondary to pneumonia/aspiration currently in room air , not requiring any 02 supplement Acute Kidney Injury superimposed on CKD stage 3 likely due to inadequate PO intake creat improved to baseline CAD s/p stent continue Plavix, b-nancie, Imdur no anginal symptoms Hx. of CVA has had a stroke in the past - 2006 continue Plavix Insulin Dependent DM2 insulin sliding scale and Lantus 5 units BID glycemic control consult with Pharmacy Tachy-Gerald Syndrome s/p cardiac pacemaker placement DVT ppx sub q heparin DNR DISPOSITION D/W Daughter DIANE Campa living with Daughter ; has 01/09 care as per Daughter -feels that she has adequate support to take care of the patient at home wants referral made for home health visiting nurse for periodic vital check and pressure ulcer /wound care CM aware -referral made for [facility] Daughter wants to will milk pickup driver pt tomorrow for at 11 am Total time spent on discharge = This includes examination of the patient, discharge planning, medication reconciliation, and communication with other providers.
--- NOTE | 2016-05-02 17:31 | Progress Note ---
Internal Med Progress Note Date of Service: May 02, 2016. Provider Documentation: SUBJECTIVE: awake ,able to answer questions no cough no fever Daughter and erp project manager present at bedside stable to be discharged home today OBJECTIVE: Vital Signs-as noted below Exam: General-elderly male, awake , able to answer simple questions Eyes-sclera non icteric ENT-moist oral mucosa Lungs-improved auscultation , minimum wheeze Heart-regular Abdomen-soft , Extremities-trace pedal edema, chronic skin changes, healed skin tears on left knee Neuro-baseline dementia, confusion , oriented to person only , awake Lab data as noted below. ASSESSMENT & PLAN: This is a 80 year old demented male with a complex PMH that includes tachy- waldo syndrome s/p PPM, CAD s/p stent with stable angina, hx. of CVA with multiple residual symptoms, insulin dependent DM2, CKD stage 3, solitary kidney , obstructive sleep apnea with CPAP intolerance, HTN, HLD was brought in by his daughter due to weakness, and respiratory distress. Sepsis and Metabolic Encephalopathy secondary to Aspiration Pneumonia strict aspiration precautions, pureed diet/nectar thick liquids - appreciate speech evaluation WBC and lactic acid normalized; afebrile; hemodynamically stable mental status gradually improved to baseline on PO Levaquin needs total 7 days tx Acute Respiratory Failure resolved presented with acute respiratory failure secondary to pneumonia/aspiration currently in room air , not requiring any 02 supplement Acute Kidney Injury superimposed on CKD stage 3 likely due to inadequate PO intake creat improved to baseline CAD s/p stent continue Plavix, b-nancie, Imdur no anginal symptoms Hx. of CVA has had a stroke in the past - 2006 continue Plavix Insulin Dependent DM2 insulin sliding scale and Lantus 5 units BID glycemic control consult with Pharmacy Tachy-Waldo Syndrome s/p cardiac pacemaker placement DVT ppx sub q heparin DNR DISPOSITION as per PT/OT -pt requires 2 person assists , complete care for feeding, turning , hygiene prior to admission was able to use walker with assistance recommends SNF for worsening functional decline D/W Daughter POA Saray Campa living with Daughter ; has 01/09 care Daughter POMoiz does not want SNF transfer as per Daughter -feels that she has adequate support to take care of the patient at home wants referral made for home health visiting nurse for periodic vital check and pressure ulcer /wound care CM aware -referral made for [facility] Discharge home with Daughter and Front Desk Administrator today arrangements made for Litter van transportation as pt is too weak to be safely transported via private car Vital Signs: Date Time Temp Pulse Resp B/P Pulse Ox O2 Delivery O2 Flow Rate FiO2 05/02/16 15:28 88 16 98 Room Air 05/02/16 12:00 98 05/02/16 11:16 67 16 98 Room Air 05/02/16 11:11 36.5 76 20 93 Venturi Mask 05/02/16 08:00 93 05/02/16 07:22 36.5 76 20 160/81 93 Room Air 05/02/16 07:10 77 16 93 Room Air 05/02/16 04:39 36.6 68 18 148/61 95 Room Air 05/02/16 04:00 Nasal Cannula 2.0 05/01/16 23:59 Nasal Cannula 2.0 05/01/16 23:46 36.6 81 18 167/83 90 Room Air 05/01/16 20:00 Room Air 05/01/16 19:54 36.7 75 16 150/77 94 Room Air Lab Results: Results Past 24 Hours Test 05/01/16 21:03 05/02/16 07:38 05/02/16 11:32 Range/Units Bedside Glucose 163 118 174 70-99 mg/dl
[2016-05-03] VITALS: BP 168/79; PULSE 80; TEMP 36.8; O2SAT 92
[2016-05-03 03:45] VITALS: BP 160/88; PULSE 74; TEMP 36.5; O2SAT 93
[2016-05-03] MEDS: ALBUT/IPRATROP 3MG/0.5MG NEB 3 ML VIAL INH SCH (08:01)
[2016-05-03 08:02] VITALS: PULSE 93; O2SAT 93
[2016-05-03 08:11] VITALS: BP 152/76; PULSE 75; TEMP 36.5; O2SAT 92
[2016-05-03] MEDS: LEVETIRACETAM 250 MG TAB PO SCH (08:43)
[2016-05-03] MEDS: INSULIN ASPART 100 UNITS/ML 3 ML PEN SC SCH (08:47)
[2016-05-03] MEDS: HEPARIN SOD 5000 UNIT/0.5 ML CARP SQ SCH (08:48)
[2016-05-03] MEDS: INSULIN GLARGINE SOLOSTAR 100 UNITS/ML 3 ML PEN SC SCH (08:48)
[2016-05-03] MEDS ORDERED: LEVOFLOXACIN 250 MG TAB PO SCH (11:00)
--- NOTE | 2016-05-03 20:47 | Progress Note ---
Internal Med Progress Note Date of Service: May 03, 2016. Provider Documentation: SUBJECTIVE: awake ,able to answer questions no cough no fever Daughter and tyre retreader present at bedside stable to be discharged home today OBJECTIVE: Vital Signs-as noted below Exam: General-elderly male, awake , able to answer simple questions Eyes-sclera non icteric ENT-moist oral mucosa Lungs-improved auscultation , minimum wheeze Heart-regular Abdomen-soft , Extremities-trace pedal edema, chronic skin changes, healed skin tears on left knee Neuro-baseline dementia, confusion , oriented to person only , awake Lab data as noted below. ASSESSMENT & PLAN: This is a 80 year old demented male with a complex PMH that includes tachy- waldo syndrome s/p PPM, CAD s/p stent with stable angina, hx. of CVA with multiple residual symptoms, insulin dependent DM2, CKD stage 3, solitary kidney , obstructive sleep apnea with CPAP intolerance, HTN, HLD was brought in by his daughter due to weakness, and respiratory distress. Sepsis and Metabolic Encephalopathy secondary to Aspiration Pneumonia strict aspiration precautions, pureed diet/nectar thick liquids - appreciate speech evaluation WBC and lactic acid normalized; afebrile; hemodynamically stable mental status gradually improved to baseline on PO Levaquin needs total 7 days tx Acute Respiratory Failure resolved presented with acute respiratory failure secondary to pneumonia/aspiration currently in room air , not requiring any 02 supplement Acute Kidney Injury superimposed on CKD stage 3 likely due to inadequate PO intake creat improved to baseline CAD s/p stent continue Plavix, b-nancie, Imdur no anginal symptoms Hx. of CVA has had a stroke in the past - 2006 continue Plavix Insulin Dependent DM2 insulin sliding scale and Lantus 5 units BID glycemic control consult with Pharmacy Tachy-Waldo Syndrome s/p cardiac pacemaker placement DVT ppx sub q heparin DNR DISPOSITION as per PT/OT -pt requires 2 person assists , complete care for feeding, turning , hygiene prior to admission was able to use walker with assistance recommends SNF for worsening functional decline D/W Daughter POA Saray Campa living with Daughter ; has 01/09 care Daughter POMoiz does not want SNF transfer as per Daughter -feels that she has adequate support to take care of the patient at home wants referral made for home health visiting nurse for periodic vital check and pressure ulcer /wound care CM aware -referral made for [facility] Discharge home with Daughter and Center Sales And Service Associate today arrangements made for Litter van transportation as pt is too weak to be safely transported via private car Vital Signs: Lab Results:
--- NOTE | 2016-05-03 20:47 | Progress Note ---
Internal Med Progress Note Date of Service: May 03, 2016. Provider Documentation: SUBJECTIVE: awake ,able to answer questions no cough no fever Daughter and antichecking iron worker present at bedside stable to be discharged home today OBJECTIVE: Vital Signs-as noted below Exam: General-elderly male, awake , able to answer simple questions Eyes-sclera non icteric ENT-moist oral mucosa Lungs-improved auscultation , minimum wheeze Heart-regular Abdomen-soft , Extremities-trace pedal edema, chronic skin changes, healed skin tears on left knee Neuro-baseline dementia, confusion , oriented to person only , awake Lab data as noted below. ASSESSMENT & PLAN: This is a 80 year old demented male with a complex PMH that includes tachy- waldo syndrome s/p PPM, CAD s/p stent with stable angina, hx. of CVA with multiple residual symptoms, insulin dependent DM2, CKD stage 3, solitary kidney , obstructive sleep apnea with CPAP intolerance, HTN, HLD was brought in by his daughter due to weakness, and respiratory distress. Sepsis and Metabolic Encephalopathy secondary to Aspiration Pneumonia strict aspiration precautions, pureed diet/nectar thick liquids - appreciate speech evaluation WBC and lactic acid normalized; afebrile; hemodynamically stable mental status gradually improved to baseline on PO Levaquin needs total 7 days tx Acute Respiratory Failure resolved presented with acute respiratory failure secondary to pneumonia/aspiration currently in room air , not requiring any 02 supplement Acute Kidney Injury superimposed on CKD stage 3 likely due to inadequate PO intake creat improved to baseline CAD s/p stent continue Plavix, b-nancie, Imdur no anginal symptoms Hx. of CVA has had a stroke in the past - 2006 continue Plavix Insulin Dependent DM2 insulin sliding scale and Lantus 5 units BID glycemic control consult with Pharmacy Tachy-Waldo Syndrome s/p cardiac pacemaker placement DVT ppx sub q heparin DNR DISPOSITION as per PT/OT -pt requires 2 person assists , complete care for feeding, turning , hygiene prior to admission was able to use walker with assistance recommends SNF for worsening functional decline D/W Daughter POMoiz Campa living with Daughter ; has 01/09 care Daughter DIANE does not want SNF transfer as per Daughter -feels that she has adequate support to take care of the patient at home wants referral made for home health visiting nurse for periodic vital check and pressure ulcer /wound care CM aware -referral made for [facility] arrangements made for Litter van transportation as pt is too weak to be safely transported via private car could not be discharge home today as transportation was very late at night Scheduled transport for discharge tomorrow Vital Signs: Lab Results:
--- NOTE | 2016-05-04 20:18 | Discharge Summary ---
Discharge Summary Date of Service May 04, 2016. Discharge Summary Admission Date: Apr 23, 2016 at 11:29 Discharge Date: May 03, 2016 Discharge Disposition: Home with services Principal Diagnosis: SEPSIS /ASPIRATION PNEUMONIA /METABOLIC ENCEPHALOPATHY Medication Reconciliation New Medications: Levofloxacin (Levaquin) 250 Mg Tab 250 MG PO DAILY for 2 Days, #2 TAB Continued Medications: Albuterol Hfa (Ventolin Hfa) 200 Puffs/46776 [place] 2 PUFF INH Q4H PRN for Wheezing, #1 INHALER Allopurinol (Zyloprim) 100 Mg Tab 200 MG PO DAILY Cholecalciferol (Vitamin D3) 1,000 Unit Tab 2000 TAB PO DAILY, 3 Refills Clopidogrel Bisulfate (Clopidogrel) 75 Mg Tab 75 MG PO DAILY Furosemide (Furosemide) 20 Mg Tab 10 MG PO DAILY Insulin Aspart (Novolog Flexpen) 100 Units/Ml Inj 2-10 UNITS SQ UD SLIDING SCALE 3 TIMES DAILY WITH MEALS 151-200 = 2 UNITS 201-250 = 4 UNITS 251-300 = 6 UNITS 301-350= 8 UNITS 351-400 = 10 UNITS OVER 400 = 10 UNITS AND CALL Insulin Glargine (Lantus Solostar) 100 Unit/Ml Inj 13 UNITS SC HS, PEN Isosorbide Mononitrate Ext Rel (Imdur Ext Rel) 30 Mg Tabcr 30 MG PO QAM, TAB Levetiracetam (Keppra) 250 Mg Tab 250 MG PO BID, TAB Lisinopril (Lisinopril) 40 Mg Tab 20 MG PO QAM Metoprolol Succ (Toprol Xl) (Toprol-Xl) 25 Mg Tabcr 25 MG PO DAILY, #30 TAB Nitroglycerin (Nitrostat) 0.4 Mg Tab 0.4 MG UT PRN, BTL Sitagliptin (Januvia) 50 Mg Tab 50 MG PO DAILY, #90 Tolterodine Tartrate (Detrol La) 4 Mg Cap 4 MG PO QAM Admission Information HPI (per Admitting provider): This is a 80 year old demented male with a complex PMH that includes tachy- waldo syndrome s/p PPM, CAD s/p stent with stable angina, hx. of CVA with multiple residual symptoms, insulin dependent DM2, CKD stage 3, solitary kidney , obstructive sleep apnea - failed outpatient CPAP, HTN, HLD was brought in by his daughter due to weakness, and respiratory distress. All of the history is obtained from the daughter. He has had weakness and shortness of breath since the weekend, he had a fall on 04/22 - and today the breathing just got a lot worse. 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 His uvula was removed due to his significant apnea nocturnally and his failed CPAP use at home (did not tolerate it well). On presentation here, WBC was elevated, lactic acid found to be > 5 - patient was hypoxic and placed on a non-rebreather for now. He is currently asleep and lethargic, somewhat arousable, but goes back to sleep. He becomes apneic during sleep. Physical Exam (per Admitting): General Appearance: + pertinent finding (somnolent, lethargic, nonbreather on face; snoring loudly with periods of apnea; +accessory muscle use for respirations) Head: + pertinent finding (+laceration above left eye) Respiratory/Chest: + accessory muscle use, + rhonchi Cardiovascular: regular rate, rhythm, no edema, no murmur Extremities/Musculoskelatal: normal capillary refill, no pedal edema Neurologic/Psych: + pertinent finding (lethargic) Skin: normal color Hospital Course awake , able to answer simple questions daughter present at bedside litter van ride arrived pt is getting transported via litter van to home , P/E: General-elderly male, awake , able to answer simple questions Eyes-sclera non icteric ENT-moist oral mucosa Lungs-improved auscultation , minimum wheeze Heart-regular Abdomen-soft , Extremities-trace pedal edema, chronic skin changes, healed skin tears on left knee Neuro-baseline dementia, confusion , oriented to person only , awake Sepsis and Metabolic Encephalopathy secondary to Aspiration Pneumonia mental status improved to baseline able to recognize daughter asking when he can return home Aspiration Pneumonia : strict aspiration precautions, pureed diet/nectar thick liquids - appreciate speech evaluation WBC and lactic acid normalized; afebrile; hemodynamically stable mental status gradually improved to baseline on PO Levaquin needs total 7 days tx Acute Respiratory Failure resolved presented with acute respiratory failure secondary to pneumonia/aspiration currently in room air , not requiring any 02 supplement Acute Kidney Injury superimposed on CKD stage 3 likely due to inadequate PO intake creat improved to baseline CAD s/p stent continue Plavix, b-nancie, Imdur no anginal symptoms Hx. of CVA has had a stroke in the past - 2006 continue Plavix Insulin Dependent DM2 insulin sliding scale and Lantus 5 units BID glycemic control consult with Pharmacy Tachy-Waldo Syndrome s/p cardiac pacemaker placement DVT ppx sub q heparin DNR DISPOSITION as per PT/OT -pt requires 2 person assists , complete care for feeding, turning , hygiene prior to admission was able to use walker with assistance recommends SNF for worsening functional decline D/W Daughter DIANE Campa living with Daughter ; has 01/09 care Daughter DIANE does not want SNF transfer as per Daughter -feels that she has adequate support to take care of the patient at home wants referral made for home health visiting nurse for periodic vital check and pressure ulcer /wound care CM aware -referral made for Center Home care arrangements made for Litter van transportation as pt is too weak to be safely transported via private car discharged to home via litter van berto So present at bedside Total time spent on discharge = 35 mins This includes examination of the patient, discharge planning, medication reconciliation, and communication with other providers. Discharge Instructions Admission Reason for Admission: Aspiration Into Airway, Pneumonia, Sepsis Discharge Discharge Diagnosis / Problem: SEPSIS /ASPIRATION PNEUMONIA /METABOLIC ENCEPHALOPATHY Discharge Goals Goal(s): Increase independence, Improve disease control, Diagnostic testing, Therapeutic intervention Activity Recommendations Activity Limitations: as noted below ( TOLERATED ) Shower/Bathe: no limitations . Instructions / Follow-Up Instructions / Follow-Up HOSPITAL FOLLOW UP WITH DR ORTIZ ON Thursday05/06/16 @ 2: 10 PM DIET HAS BEEN CHANGED TO PREVENT ASPIRATION : PUREED DIET WITH NECTAR THICK LIQUID -.Only feed when alert and awake and Fully upright -. Aspiration precautions- NO mixed consistencies. NO STRAWS ~Stringent oral Hygiene- clean mouth PRIOR to oral intake in the morning and after meals and before going to bed at night ~Mouth care q shift to minimize oral bacteria that can be aspirated in the saliva -. Supervision with all intake for impulsivity-assistance with intake when needed. -. Safe swallow strategies, small bites, small sips, slow rate, check mouth after meal for pocketing Current Hospital Diet Patient's current hospital diet: Diabetes Type 2 Diet Discharge Diet Recommended Diet: Diabetes Type 2 Diet Diet Texture: Pureed (blended smooth) Liquid Consistency: [place] Thick Pending Studies Studies pending at discharge: no Laboratory Results Hemoglobin A1c Test 04/24/16 01:30 Range/Units Estimated Average Glucose 160 mg/dl Hemoglobin A1c 7.2 H 4.5-5.6 % Medical Emergencies . Who to Call and When: Medical Emergencies: If at any time you feel your situation is an emergency, please call 911 immediately. . Non-Emergent Contact Non-Emergency issues call your: Primary Care Provider . . "Provider Documentation" section prepared by Jaky Bonner. VTE Core Measure Inpt VTE Proph given/why not?: Unfractionated heparin SQ [place] Drug Monitoring Program Search Results: no issues identified Additional Copies To Austen Ortiz M.D. (MEDICAL)
[2016-05-16] MEDS ORDERED: SNKUDL10 PO (10:35)
[2016-05-16] MEDS ORDERED: FLM4 PO (10:35)
[2016-05-16] MEDS ORDERED: CLCUDL PO (10:35)
[2016-05-16] MEDS ORDERED: NVLGI/PEN SQ (10:35)
== END 2016-05-03 10:55 | disposition home health service (06) | DRG 871 ==
LOC: ENRESERVDT → ENRESERVTM → EDBD 08:45 → C.EDB 08:46 → UNDOADMIN 11:29 → C.MED 11:29
PROVIDERS: ADMIT Family Medicine; ATTEND Hospitalist
DX: A41.9 Sepsis, unspecified organism (principal); G93.41 Metabolic encephalopathy; J96.02 Acute respiratory failure with hypercapnia; J69.0 Pneumonitis due to inhalation of food and vomit; J96.01 Acute respiratory failure with hypoxia; E87.2 Acidosis; N17.9 Acute kidney failure, unspecified; I13.0 Hypertensive heart and chronic kidney disease with heart failure and stage 1 through stage 4 chronic kidney disease, or unspecified chronic kidney disease; I69.959 Hemiplegia and hemiparesis following unspecified cerebrovascular disease affecting unspecified side; Q60.0 Renal agenesis, unilateral; I50.32 Chronic diastolic (congestive) heart failure; R65.20 Severe sepsis without septic shock; E78.5 Hyperlipidemia, unspecified; I25.10 Atherosclerotic heart disease of native coronary artery without angina pectoris; N18.3 Chronic kidney disease, stage 3 (moderate); E11.22 Type 2 diabetes mellitus with diabetic chronic kidney disease; G47.33 Obstructive sleep apnea (adult) (pediatric); L30.1 Dyshidrosis [pompholyx]; F03.90 Unspecified dementia, unspecified severity, without behavioral disturbance, psychotic disturbance, mood disturbance, and anxiety; G40.909 Epilepsy, unspecified, not intractable, without status epilepticus; K21.9 Gastro-esophageal reflux disease without esophagitis; M10.9 Gout, unspecified; I73.9 Peripheral vascular disease, unspecified; E11.42 Type 2 diabetes mellitus with diabetic polyneuropathy; Z66 Do not resuscitate; Z95.0 Presence of cardiac pacemaker; Z79.4 Long term (current) use of insulin; Z99.81 Dependence on supplemental oxygen; Z95.5 Presence of coronary angioplasty implant and graft; Z79.02 Long term (current) use of antithrombotics/antiplatelets; Z79.84 Long term (current) use of oral hypoglycemic drugs; Z79.899 Other long term (current) drug therapy; Z87.891 Personal history of nicotine dependence; R33.8 Other retention of urine; N40.1 Benign prostatic hyperplasia with lower urinary tract symptoms; I48.91 Unspecified atrial fibrillation; K59.00 Constipation, unspecified; Z51.5 Encounter for palliative care; E86.0 Dehydration; R13.10 Dysphagia, unspecified

== ENCOUNTER 2016-05-03 17:04 | Inpatient (IN) | payer OTHER ==
[~2016-05-03] VITALS: Ht 177.8 cm; Wt 86.6 kg
[~2016-05-03 17:04] MED LIST changes: -ALBUAER INH; -DOCU100C31 PO; +INSDGIPEN SC; -INSUINJ4 SQ; +LEVE250T PO; -LEVE500T PO; +LEVO-17 PO; +METO25TA3 PO; -TPRSR/100 PO; +VNTHFA/IN INH
[2016-05-03] MEDS ORDERED: SODIUM CHLORIDE 0.9% 1000ML 1,000 ML IV STA (17:25)
--- NOTE | 2016-05-03 17:47 | EMERGENCY ROOM VISIT NOTE ---
History Report prepared by Lisa: Danielle Aggarwal Under the Supervision of: Dr. Hilary Lopez M.D. First contact with patient: 17:14 Chief Complaint: ABDOMINAL PAIN Stated Complaint: AB PAIN History of Present Illness The patient is a 80 year old male who presents to the Emergency Room with complaints of constant abdominal pain beginning FILTER TANK TENDER. He reports pain around his bladder. The patient rates his pain as an 8/10 in severity. He was recently discharged from the hospital after being treated for pneumonia. The family called EMS today and the patient was brought to the ED via ambulance for further evaluation. The history is limited secondary to the patient's AMS. Source of History: patient, EMS History Limited By: AMS Onset: FILTER TANK TENDER Position: abdomen Symptom Intensity: 8/10 Timing: constant Review of Systems ROS is limited secondary to the patient's AMS. 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, post-stroke (18) HTN (hypertension) (19) NINI (obstructive sleep apnea) (20) Pneumonia (21) PVD (peripheral vascular disease) (22) Seizure disorder (23) Sepsis (24) Solitary kidney (25) Weakness Surgical Problems: (1) H/O Spinal surgery (2) H/O vasectomy Family History Diabetes mellitus Heart disease Social History Smoking Status: Former Smoker Drug Use: none Marital Status: Housing Status: lives with family Occupation Status: retired Current/Historical Medications Scheduled Allopurinol (Zyloprim), 200 MG PO DAILY Cholecalciferol (Vitamin D3), 2,000 TAB PO DAILY Clopidogrel Bisulfate (Clopidogrel), 75 MG PO DAILY Furosemide (Furosemide), 10 MG PO DAILY Insulin Aspart (Novolog Flexpen), 2-10 UNITS SQ UD Insulin Glargine (Lantus Solostar), 13 UNITS SC HS Isosorbide Mononitrate Ext Rel (Imdur Ext Rel), 30 MG PO QAM Levetiracetam (Keppra), 250 MG PO BID Levofloxacin (Levaquin), 250 MG PO DAILY Lisinopril (Lisinopril), 20 MG PO QAM Metoprolol Succ (Toprol Xl) (Toprol-Xl), 25 MG PO DAILY Nitroglycerin (Nitrostat), 0.4 MG UT PRN Sitagliptin (Januvia), 50 MG PO DAILY Tolterodine Tartrate (Detrol La), 4 MG PO QAM Scheduled PRN Albuterol Hfa (Ventolin Hfa), 2 PUFF INH Q4H PRN for Wheezing Allergies Coded Allergies: Simvastatin (Verified Allergy, Mild, rash, 05/03/16) per gmg Atorvastatin (Verified Adverse Reaction, Mild, MUSCLE WEAKNESS, 05/03/16) Phenytoin (Verified Adverse Reaction, Unknown, Weak legs., 05/03/16) Source-[facility] Physical Exam Vital Signs Date Time Temp Pulse Resp B/P Pulse Ox O2 Delivery O2 Flow Rate FiO2 05/03/16 21:22 85 05/03/16 20:28 78 20 153/88 96 Room Air 05/03/16 20:26 97 Room Air 05/03/16 20:25 87 Room Air 05/03/16 17:14 80 05/03/16 17:04 36.4 67 22 148/80 95 Room Air Physical Exam Vital signs reviewed. General: Chronically ill appearing elderly male, in no significant distress. HEENT: No scleral icterus, PERRLA, neck supple. Atraumatic. Cardiovascular: Rate controlled and irregular, no extra sounds. Pulmonary: Clear to auscultation bilaterally, normal work of breathing. Abdomen: Soft, tender to palpation of the abdomen diffusely, mild lower distention, positive bowel sounds. Musculoskeletal: Well-healing wound to the left knee, no peripheral edema. Neurologic: Patient is moaning. He answers simple questions. He is somewhat confused and unable to elaborate. Patient does move all 4 extremities and cranial nerves are intact. Skin: Warm, dry, no rash Medical Decision & Procedures ER Provider Diagnostic Interpretation: Radiology results as stated below per my review and radiologist interpretation: AP CHEST WITH ABDOMINAL SERIES CLINICAL HISTORY: Generalized abdominal pain. Constipation. FINDINGS: An AP upright chest radiograph is compared to study dated 04/30/2016. Correlation is made with chest CT dated 01/21/2016. The examination is significant degraded by patient rotation and apical lordotic positioning. The a 2-lead cardiac pacemaker is unchanged in position. The heart is enlarged and there is mild atherosclerotic calcification of the thoracic aorta. There is pulmonary vascular congestion and interstitial edema. Bilateral calcified pleural plaques are identified. There are layering pleural effusions with dependent consolidation. No pneumothorax is seen. The skeletal structures are osteopenic. Degenerative changes noted in the thoracic spine and shoulders. Supine and decubitus abdominal radiographs are correlated with abdominal CT dated 08/31/2015. There is a nonobstructed abdominal bowel gas pattern noting moderate to severe constipation. Surgical clips are present in the left abdomen. No evidence of intraperitoneal free air is seen. Vascular calcifications are seen in the pelvis. There is lumbosacral spondylosis. The bony pelvis appears intact. IMPRESSION: 1. Cardiomegaly and cardiac pacemaker with evidence of congestive failure and interstitial edema. 2. Layering pleural effusions with bibasilar consolidation. This likely represents atelectasis. Correlate clinically for evidence of superimposed pneumonia. 3. Nonobstructed abdominal bowel gas pattern noting moderate to severe constipation. 4. No intraperitoneal free air is seen. Electronically signed by: Dar Fallon M.D. 05/03/2016 7:59 PM Dictated Date/Time: 05/03/2016 7:55 PM Laboratory Results 05/03/16 18:16 Red Blood Count 4.60, Mean Corpuscular Volume 92.4, Mean Corpuscular Hemoglobin 32.2, Mean Corpuscular Hemoglobin Concent 34.8, Mean Platelet Volume 9.5, Neutrophils (%) (Auto) 63.2, Lymphocytes (%) (Auto) 24.1, Monocytes (%) (Auto) 8.6, Eosinophils (%) (Auto) 2.6, Basophils (%) (Auto) 0.5, Neutrophils # (Auto) 3.67, Lymphocytes # (Auto) 1.40, Monocytes # (Auto) 0.50, Eosinophils # (Auto) 0.15, Basophils # (Auto) 0.03 Test 05/03/16 17:36 05/03/16 18:16 05/03/16 18:17 Urine Color YELLOW Urine Appearance CLEAR (CLEAR) Urine pH 7.5 (4.5-7.5) Urine Specific [place] 1.009 (1.000-1.030) Urine Protein NEG (NEG) Urine Glucose (UA) NEG (NEG) Urine Ketones NEG (NEG) Urine Occult Blood NEG (NEG) Urine Nitrite NEG (NEG) Urine Bilirubin NEG (NEG) Urine Urobilinogen NEG (NEG) Urine Leukocyte Esterase NEG (NEG) White Blood Count 5.81 K/uL (4.8-10.8) Red Blood Count 4.60 M/uL (4.7-6.1) Hemoglobin 14.8 g/dL (14.0-18.0) Hematocrit 42.5 % (42-52) Mean Corpuscular Volume 92.4 fL (80-100) Mean Corpuscular Hemoglobin 32.2 pg (25-34) Mean Corpuscular Hemoglobin Concent 34.8 g/dl (32-36) Platelet Count 175 K/uL (130-400) Mean Platelet Volume 9.5 fL (7.4-10.4) Neutrophils (%) (Auto) 63.2 % Lymphocytes (%) (Auto) 24.1 % Monocytes (%) (Auto) 8.6 % Eosinophils (%) (Auto) 2.6 % Basophils (%) (Auto) 0.5 % Neutrophils # (Auto) 3.67 K/uL (1.4-6.5) Lymphocytes # (Auto) 1.40 K/uL (1.2-3.4) Monocytes # (Auto) 0.50 K/uL (0.11-0.59) Eosinophils # (Auto) 0.15 K/uL (0-0.5) Basophils # (Auto) 0.03 K/uL (0-0.2) RDW Standard Deviation 48.9 fL (36.4-46.3) RDW Coefficient of Variation 14.4 % (11.5-14.5) Immature Granulocyte % (Auto) 1.0 % Immature Granulocyte # (Auto) 0.06 K/uL (0.00-0.02) Magnesium Level 2.1 mg/dl (1.8-2.4) Total Bilirubin 0.5 mg/dl (0.2-1) Direct Bilirubin 0.2 mg/dl (0-0.2) Aspartate Amino Transf (AST/SGOT) 30 U/L (15-37) Alanine Aminotransferase (ALT/SGPT) 38 U/L (12-78) Alkaline Phosphatase 70 U/L (45-117) Total Protein 6.8 gm/dl (6.4-8.2) Albumin 2.5 gm/dl (3.4-5.0) Lipase 108 U/L (73-393) Bedside Troponin I 0.050 ng/ml (0-0.045) Laboratory results per my review. Medications Administered Medications (Trade) Dose Ordered Sig/Mike Route Start Time Stop Time Status Last Admin Dose Admin Sodium Chloride (Nss 1000ml) 1,000 ml @ 125 mls/hr Q8H STAT IV 05/03/16 17:25 05/03/16 23:19 DC 05/03/16 17:25 125 MLS/HR Mineral Oil (Fleet Oil Enema) 133 ml NOW STAT OK 05/03/16 20:13 05/03/16 20:14 DC 05/03/16 20:40 133 ML ECG Indication: abdominal pain Rate (beats per minute): 78 Rhythm: atrial fibrillation Findings: no acute ischemic change, other (rate controlled occasional ventricular pacing; QTC 440) ED Course 1714: Past medical records reviewed. The patient was evaluated in room B9. A complete history and physical examination was performed. 1725: NSS 1000 ml @ 125 mls/hr IV 2013: Fleet oil enema 133 ml OK 2018: I reassessed the patient at this time. He is feeling better and resting comfortably. I discussed the results and treatment plan with the patient and his family. I answered all pertaining questions that they had. They expressed understanding and verbalized agreement. 2033: I spoke with Dr. Singh. We discussed the patient's results and treatment plan. [facility]. Medical Decision Differential diagnosis: Etiologies such as appendicitis, diverticulitis, PUD, biliary pathology, UTI, pancreatitis, obstruction, mesenteric ischemia, aortic pathology, infections, inflammatory bowel disease, renal colic, urinary retention, constipation, as well as others were entertained. This patient was evaluated and appeared to be in no significant distress. IV access was obtained and laboratory work was drawn. The patient was placed on the immunology specialist. He was hydrated with normal saline solution. Chest x-ray was performed and reveals congestive changes with pulmonary consolidation. It does not appear to be much changed from his recent hospitalization. The patient was ordered a mineral oil enema secondary to his stool retention. A Zendejas catheter was placed with significant resolution of his abdominal pain which is likely urinary retention. He does a history of prostatic hypertrophy. I explained my findings to the patient's . He was recently treated for CHF and aspiration pneumonia. He has had periodic hypoxia with sleeping in the ER. Case was discussed with Dr. Mckeon of the hospitalist service. He will evaluate the patient for further management. Consults Time Called: 2031 Consulting Physician: Dr. Singh Returned Call: [address] Singh. We discussed the patient's results and treatment plan. [facility]. Impression Primary Impression: CHF exacerbation Additional Impressions: Urinary retention Constipation Elevated troponin Scribe Attestation The scribe's documentation has been prepared under my direction and personally reviewed by me in its entirety. I confirm that the note above accurately reflects all work, treatment, procedures, and medical decision making performed by me. Departure Information Dispostion Being Evaluated By Hospitalist Referrals Austen Boyer M.D. (MEDICAL) (PCP) Patient Instructions My [facility] Problem Qualifiers Primary Impression: CHF exacerbation Congestive heart failure type: unspecified congestive heart failure type Qualified Codes: I50.9 - Heart failure, unspecified Additional Impressions: Constipation Constipation type: unspecified constipation type Qualified Codes: K59.00 - Constipation, unspecified
[2016-05-03 18:25] LABS: URINE APPEARANCE CLEAR (CLEAR); URINE BILIRUBIN NEG (NEG); URINE COLOR YELLOW; URINE NITRITE NEG (NEG); URINE PH 7.5 (4.5-7.5); URINE SPECIFIC GRAVITY 1.009 (1.000-1.030); UROBILINOGEN NEG (NEG); ZZURINE CULT IF INDIC CATH NO
[2016-05-03 18:28] LABS: MANUAL MICROSCOPIC REQUIRED? NO; REVIEW REQ? NO
[2016-05-03 18:28] LABS: BASO % 0.5 %; BASO ABS # 0.03 K/uL (0-0.2); COMPLETE YES; EOS % 2.6 %; HEMATOCRIT 42.5 % (42-52); LYMPH % 24.1 %; MEAN CELL VOLUME 92.4 fL (80-100); MEAN CORPUSCULAR HEMOGLOBIN 32.2 pg (25-34); MEAN CORPUSCULAR HGB CONC 34.8 g/dl (32-36); MEAN PLATELET VOLUME 9.5 fL (7.4-10.4); MONO % 8.6 %; NEUT % 63.2 %; PLATELET COUNT 175 K/uL (130-400); WHITE BLOOD COUNT 5.81 K/uL (4.8-10.8)
[2016-05-03 18:47] LABS: BUN/CREATININE RATIO 13.8 (10-20); CALCIUM 8.9 mg/dl (8.5-10.1); CREATININE 1.5 mg/dl (0.60-1.40); MAGNESIUM 2.1 mg/dl (1.8-2.4); POTASSIUM 3.9 mmol/L (3.5-5.1)
--- NOTE | 2016-05-03 20:00 | DIAGNOSTIC IMAGING REPORT ---
AP CHEST WITH ABDOMINAL SERIES CLINICAL HISTORY: Generalized abdominal pain. Constipation. FINDINGS: An AP upright chest radiograph is compared to study dated 04/30/2016. Correlation is made with chest CT dated 01/21/2016. The examination is significant degraded by patient rotation and apical lordotic positioning. The a 2-lead cardiac pacemaker is unchanged in position. The heart is enlarged and there is mild atherosclerotic calcification of the thoracic aorta. There is pulmonary vascular congestion and interstitial edema. Bilateral calcified pleural plaques are identified. There are layering pleural effusions with dependent consolidation. No pneumothorax is seen. The skeletal structures are osteopenic. Degenerative changes noted in the thoracic spine and shoulders. Supine and decubitus abdominal radiographs are correlated with abdominal CT dated 08/31/2015. There is a nonobstructed abdominal bowel gas pattern noting moderate to severe constipation. Surgical clips are present in the left abdomen. No evidence of intraperitoneal free air is seen. Vascular calcifications are seen in the pelvis. There is lumbosacral spondylosis. The bony pelvis appears intact. IMPRESSION: 1. Cardiomegaly and cardiac pacemaker with evidence of congestive failure and interstitial edema. 2. Layering pleural effusions with bibasilar consolidation. This likely represents atelectasis. Correlate clinically for evidence of superimposed pneumonia. 3. Nonobstructed abdominal bowel gas pattern noting moderate to severe constipation. 4. No intraperitoneal free air is seen. Electronically signed by: Dar Fallon M.D. 05/03/2016 7:59 PM Dictated Date/Time: 05/03/2016 7:55 PM
[2016-05-03] MEDS ORDERED: MINERAL OIL ENEMA 133 ML BTL PR STA (20:13)
--- NOTE | 2016-05-03 21:51 | History and Physical ---
History & Physical Date & Time of Service: May 03, 2016 at 21:30 . Chief Complaint: abdominal pain . Primary Care Physician: Austen Boyer M.D. (MEDICAL) . History of Present Illness Source: patient, family, clinic records, hospital records 80 [address] male followed by Dr. Boyer. History ischemic heart disease, AF, CHF, CKD, diabetes, BPH, dementia, and other problems noted below. Hospitalized 04/23/16 for aspiration pneumonia. His condition improved and he was discharged to home earlier today where he is cared for by his daughter with the assistance of other caregivers. Developed abdominal pain after returning home. Pain difficult to characterize because of patient's dementia and poor short- term memory. Apparently pain was located in the lower abdomen and did not radiate. No associated fever, nausea, vomiting. Last bowel movement was 2 days ago. Patient denies any difficulty with voiding, but 600 ml urine drained immediately when Zendejas cath inserted. Noted to have O2 sats as low as 87% in ED while napping. History of sleep apnea, but did not tolerate CPAP. Denies chest pain, cough, SOB. . Past Medical/Surgical History Chronic Medical Problems: (1) Amputated finger Permanent Comment: traumatic Status: Resolved (2) ASCVD (arteriosclerotic cardiovascular disease) Status: Chronic (3) BPH (benign prostatic hyperplasia) Status: Chronic (4) CAD (coronary artery disease) Status: Chronic (5) CKD (chronic kidney disease) stage 3, GFR 30-59 ml/min Status: Chronic (6) CVA (cerebral vascular accident) Status: Resolved (7) Dementia Status: Chronic (8) Diabetes mellitus type 2 in obese Status: Chronic (9) Diabetic polyneuropathy Status: Chronic (10) Dyslipidemia Status: Chronic (11) Eczema, dyshidrotic Status: Chronic (12) GERD (gastroesophageal reflux disease) Status: Chronic (13) Gout Status: Chronic (14) Hemiplegia, post-stroke Status: Chronic (15) HTN (hypertension) Status: Chronic (16) NINI (obstructive sleep apnea) Status: Chronic (17) PVD (peripheral vascular disease) Status: Chronic (18) Seizure disorder Status: Chronic (19) Solitary kidney Status: Chronic Surgical Problems: (1) H/O Spinal surgery Status: Resolved (2) H/O vasectomy Status: Resolved . Family History Diabetes mellitus Heart disease Social History Smoking Status: Former Smoker Alcohol Use: none Drug Use: none Marital Status: Housing status: lives with family Occupational Status: retired Immunizations History of Influenza Vaccine: Yes History of Tetanus Vaccine?: Unknown History of Pneumococcal: Yes History of Hepatitis B Vaccine: No Multi-Drug Resistant 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 Allergies Coded Allergies: Simvastatin (Verified Allergy, Mild, rash, 05/03/16) per gmg Atorvastatin (Verified Adverse Reaction, Mild, MUSCLE WEAKNESS, 05/03/16) Phenytoin (Verified Adverse Reaction, Unknown, Weak legs., 05/03/16) Source-[facility] Home Medications Scheduled Allopurinol (Zyloprim), 200 MG PO DAILY Cholecalciferol (Vitamin D3), 2,000 TAB PO DAILY Clopidogrel Bisulfate (Clopidogrel), 75 MG PO DAILY Furosemide (Furosemide), 10 MG PO DAILY Insulin Aspart (Novolog Flexpen), 2-10 UNITS SQ UD Insulin Glargine (Lantus Solostar), 13 UNITS SC HS Isosorbide Mononitrate Ext Rel (Imdur Ext Rel), 30 MG PO QAM Levetiracetam (Keppra), 250 MG PO BID Levofloxacin (Levaquin), 250 MG PO DAILY Lisinopril (Lisinopril), 20 MG PO QAM Metoprolol Succ (Toprol Xl) (Toprol-Xl), 25 MG PO DAILY Nitroglycerin (Nitrostat), 0.4 MG UT PRN Sitagliptin (Januvia), 50 MG PO DAILY Tolterodine Tartrate (Detrol La), 4 MG PO QAM Scheduled PRN Albuterol Hfa (Ventolin Hfa), 2 PUFF INH Q4H PRN for Wheezing Review of Systems As noted above in HPI. . Physical Exam Vital Signs Date Time Temp Pulse Resp B/P Pulse Ox O2 Delivery O2 Flow Rate FiO2 05/03/16 21:22 85 05/03/16 20:28 78 20 153/88 96 Room Air 05/03/16 20:26 97 Room Air 05/03/16 20:25 87 Room Air 05/03/16 17:14 80 05/03/16 17:04 36.4 67 22 148/80 95 Room Air General Appearance: WD/WN, no apparent distress Head: normocephalic, atraumatic Eyes: normal inspection, PERRL, EOMI, sclerae normal ENT: normal ENT inspection Neck: supple, no adenopathy, thyroid normal, trachea midline, + JVD Respiratory/Chest: no respiratory distress, no accessory muscle use, + rales ( few bibasilar) Cardiovascular: + JVD, + irregularly irregular, + abnormal peripheral pulses ( diminished), + pertinent finding (trace pretibial edema) Abdomen/GI: normal bowel sounds, non tender, soft, no organomegaly, no pulsatile mass Genitourinary - Male: + pertinent finding (Zendejas cath draining clear urine) Extremities/Musculoskelatal: no calf tenderness, + pedal edema Neurologic/Psych: alert, normal mood/affect, + motor weakness (diffuse mild weakness), + disoriented Skin: normal color, warm/dry Lymphatic: no adenopathy Diagnostics Laboratory Results Results Past 24 Hours Test 05/03/16 17:36 05/03/16 18:16 05/03/16 18:17 Range/Units Urine Color YELLOW Urine Appearance CLEAR CLEAR Urine pH 7.5 4.5-7.5 Urine Specific [place] 1.009 1.000-1.030 Urine Protein NEG NEG Urine Glucose (UA) NEG NEG Urine Ketones NEG NEG Urine Occult Blood NEG NEG Urine Nitrite NEG NEG Urine Bilirubin NEG NEG Urine Urobilinogen NEG NEG Urine Leukocyte Esterase NEG NEG White Blood Count 5.81 4.8-10.8 K/uL Red Blood Count 4.60 4.7-6.1 M/uL Hemoglobin 14.8 14.0-18.0 g/dL Hematocrit 42.5 42-52 % Mean Corpuscular Volume 92.4 80-100 fL Mean Corpuscular Hemoglobin 32.2 25-34 pg Mean Corpuscular Hemoglobin Concent 34.8 32-36 g/dl Platelet Count 175 130-400 K/uL Mean Platelet Volume 9.5 7.4-10.4 fL Neutrophils (%) (Auto) 63.2 % Lymphocytes (%) (Auto) 24.1 % Monocytes (%) (Auto) 8.6 % Eosinophils (%) (Auto) 2.6 % Basophils (%) (Auto) 0.5 % Neutrophils # (Auto) 3.67 1.4-6.5 K/uL Lymphocytes # (Auto) 1.40 1.2-3.4 K/uL Monocytes # (Auto) 0.50 0.11-0.59 K/uL Eosinophils # (Auto) 0.15 0-0.5 K/uL Basophils # (Auto) 0.03 0-0.2 K/uL RDW Standard Deviation 48.9 36.4-46.3 fL RDW Coefficient of Variation 14.4 11.5-14.5 % Immature Granulocyte % (Auto) 1.0 % Immature Granulocyte # (Auto) 0.06 0.00-0.02 K/uL Sodium Level 142 136-145 mmol/L Potassium Level 3.9 3.5-5.1 mmol/L Chloride Level 102 98-107 mmol/L Carbon Dioxide Level 34 21-32 mmol/L Anion Gap 6.0 3-11 mmol/L Blood Urea Nitrogen 21 7-18 mg/dl Creatinine 1.50 0.60-1.40 mg/dl Est Creatinine Clear Calc Drug Dose 41.4 ml/min Estimated GFR () 49.5 Estimated GFR (Non- 42.7 BUN/Creatinine Ratio 13.8 10-20 Random Glucose 140 70-99 mg/dl Calcium Level 8.9 8.5-10.1 mg/dl Magnesium Level 2.1 1.8-2.4 mg/dl Total Bilirubin 0.5 0.2-1 mg/dl Direct Bilirubin 0.2 0-0.2 mg/dl Aspartate Amino Transf (AST/SGOT) 30 15-37 U/L Alanine Aminotransferase (ALT/SGPT) 38 12-78 U/L Alkaline Phosphatase 70 45-117 U/L Total Protein 6.8 6.4-8.2 gm/dl Albumin 2.5 3.4-5.0 gm/dl Lipase 108 73-393 U/L Bedside Troponin I 0.050 0-0.045 ng/ml Diagnostic Radiology AP CHEST WITH ABDOMINAL SERIES CLINICAL HISTORY: Generalized abdominal pain. Constipation. FINDINGS: An AP upright chest radiograph is compared to study dated 04/30/2016. Correlation is made with chest CT dated 01/21/2016. The examination is significant degraded by patient rotation and apical lordotic positioning. The a 2-lead cardiac pacemaker is unchanged in position. The heart is enlarged and there is mild atherosclerotic calcification of the thoracic aorta. There is pulmonary vascular congestion and interstitial edema. Bilateral calcified pleural plaques are identified. There are layering pleural effusions with dependent consolidation. No pneumothorax is seen. The skeletal structures are osteopenic. Degenerative changes noted in the thoracic spine and shoulders. Supine and decubitus abdominal radiographs are correlated with abdominal CT dated 08/31/2015. There is a nonobstructed abdominal bowel gas pattern noting moderate to severe constipation. Surgical clips are present in the left abdomen. No evidence of intraperitoneal free air is seen. Vascular calcifications are seen in the pelvis. There is lumbosacral spondylosis. The bony pelvis appears intact. IMPRESSION: 1. Cardiomegaly and cardiac pacemaker with evidence of congestive failure and interstitial edema. 2. Layering pleural effusions with bibasilar consolidation. This likely represents atelectasis. Correlate clinically for evidence of superimposed pneumonia. 3. Nonobstructed abdominal bowel gas pattern noting moderate to severe constipation. 4. No intraperitoneal free air is seen. Electronically signed by: Dar Fallon M.D. 05/03/2016 7:59 PM . EKG EKG performed at 18:10 reviewed and demonstrated AF at 80 / minute, occasional ventricular paced beats, no acute changes. . Impression Assessment and Plan ABDOMINAL PAIN Probably due to urinary retention and / or constipation. Improved after Zendejas insertion. URINARY RETENTION 600 ml urine after Zendejas cath inserted. May be due to combination of BPH, constipation, tolterodine. Continue Zendejas cath for present time. DC tolterodine. Manage constipation. Start tamsulosin. Voiding trial in a few days. CONSTIPATION Last BM 2 days prior to admission. Abdominal films demonstrate moderate-severe constipation. Bowel regimen as ordered. CHF Chronic left ventricular diastolic heart failure. CXR in ED shows some vascular congestion, but improved from last film. Continue furosemide. Follow. ATRIAL FIBRILLATION Rate controlled on metoprolol. Not anticoagulated, presumably due to fall risk. ASPIRATION PNEUMONIA Finish course of levofloxacin. HYPOXIA O2 sats as low as 87% in ED. Hypoxia could be secondary to combination of hypoventilation, CHF, recent aspiration. History of sleep apnea, but doesn't tolerate CPAP. May need nocturnal O2 at home. Check nocturnal pulse oximetry. CKD III Serum creatinine stable at 1.5. Follow. DM TYPE II Well-controlled. Hgb A1C 7.2 on 04/24/16. Hold sitagliptin. Continue Lantus. NovoLog coverage as needed. VTE PROPHYLAXIS SQ heparin. RESUSCITATION STATUS Discussed with daughter / POA. DNR. DISPOSITION Admit to [facility]. Anticipated discharge to home with support services. Family Medicine follow-up with Dr. Boyer. . VTE Prophylaxis Risk Level: Moderate Given or contraindicated: Unfractionated heparin SQ
[2016-05-03] MEDS ORDERED: ACETAMINOPHEN 325 MG TAB PO PRN (22:00)
[2016-05-03] MEDS ORDERED: NITROGLYCERIN 0.4 MG SL PER TAB CHARGE UT SCH (22:00)
[2016-05-03] MEDS ORDERED: ALBUTEROL HFA 8 GM INHALER INH PRN (22:00)
[2016-05-03] MEDS ORDERED: INSULIN GLARGINE SOLOSTAR 100 UNITS/ML 3 ML PEN SC STA (23:00)
[2016-05-03] MEDS ORDERED: GLUCAGON FOR INJ 1 MG VIAL SQ PRN (23:30)
[2016-05-03] MEDS ORDERED: DEXTROSE 50% 50 ML SYR IV PRN (23:30)
[2016-05-03] MEDS ORDERED: GLUCOSE 10 TABS/TUBE PO PRN (23:30)
[2016-05-03 23:44] VITALS: BP 158/85; PULSE 78; TEMP 36.3; O2SAT 95
[2016-05-04 00:24] VITALS: BP 158/85; PULSE 78; TEMP 36.3; O2SAT 96; Ht 177.8 cm; Wt 86.6 kg
[2016-05-04 06:33] LABS: PARTIAL THROMBOPLASTIN RATIO 1.2; PROTHROMBIN TIME (PATIENT) 11.1 SECONDS (9.0-12.0)
[2016-05-04 06:51] LABS: BUN/CREATININE RATIO 14.7 (10-20); CALCIUM 8.9 mg/dl (8.5-10.1); CREATININE 1.4 mg/dl (0.60-1.40); POTASSIUM 3.7 mmol/L (3.5-5.1)
[2016-05-04 07:00] VITALS: BP 155/87; PULSE 104; TEMP 36.8; O2SAT 96
[2016-05-04] MEDS: INSULIN ASPART 100 UNITS/ML 3 ML PEN SQ SCH ×4 (09:02→20:30)
[2016-05-04] MEDS: LEVOFLOXACIN 250 MG TAB PO SCH (09:04)
[2016-05-04] MEDS: LEVETIRACETAM 250 MG TAB PO SCH ×2 (09:04→20:28)
[2016-05-04] MEDS: ISOSORBIDE MONONITRATE 30 MG TABCR PO SCH (09:04)
[2016-05-04] MEDS: CLOPIDOGREL BISULFATE 75 MG TAB PO SCH (09:04)
[2016-05-04] MEDS: DOCUSATE SODIUM/SENNA 50/8.6MG TAB PO SCH ×2 (09:04→20:28)
[2016-05-04] MEDS: ALLOPURINOL 100 MG TAB PO SCH (09:05)
[2016-05-04] MEDS: LISINOPRIL 20 MG TAB PO SCH (09:05)
[2016-05-04] MEDS: CHOLECALCIFEROL 1000 INTER.UNIT TAB PO SCH (09:05)
[2016-05-04] MEDS: METOPROLOL SUCC 25MG EXT REL TAB PO SCH (09:05)
[2016-05-04] MEDS: HEPARIN SOD 5000 UNIT/0.5 ML CARP SQ SCH ×2 (09:07→20:32)
[2016-05-04] MEDS: SOAP SUDS ENEMA PR SCH (09:45)
[2016-05-04 15:04] VITALS: BP 98/55; PULSE 72; TEMP 36.5; O2SAT 92
--- NOTE | 2016-05-04 20:19 | Progress Note ---
Internal Med Progress Note Date of Service: May 04, 2016. Provider Documentation: SUBJECTIVE: remains lethargic opens eyes briefly to voice offers no complain OBJECTIVE: Vital Signs-as noted below Exam: General-elderly male, advanced dementia ,sleeping , wakes up briefly , confusion persists , Eyes-sclera non icteric Lungs-diminished , no audible wheeze Heart-regular Abdomen-soft, Extremities-stage 1 pressure sore on bilat heels , waffle boot ordered Neuro-advanced dementia ,encephalopathic due to dehydration , moving limbs, no facial droop, no focal deficit noted Lab data as noted below. ASSESSMENT & PLAN: ABDOMINAL PAIN/URINARY RETENTION symptom improved after Zendejas catheter insertion possible cause -BPH , chronic debilitating status , bed bound with advance dementia Detrol LA d/karlie started on Flomax Voiding trial prior to discharge given multiple co morbidities pt may requiring chronic indwelling Zendejas CONSTIPATION Abdominal films demonstrate moderate-severe constipation. Bowel regimen as ordered. CHF Chronic left ventricular diastolic heart failure. currently dehydrated hold Lasix monitor vol status ATRIAL FIBRILLATION Rate controlled on metoprolol. Not a candidate for chronic anticoagulated, dementia /high fall risk. ASPIRATION PNEUMONIA Finish course of levofloxacin. cont Pureed diet with [place] thick liquid strict aspiration precaution will need assistance with each feeding HYPOXIA History of sleep apnea, but doesn't tolerate CPAP. May need nocturnal O2 at home. nocturnal pulse oximetry. CKD III Serum creatinine stable at 1.5. Follow. DM TYPE II Well-controlled. Hgb A1C 7.2 on 04/24/16. Hold sitagliptin-poor pO intake , lethargy Continue Lantus. NovoLog coverage as needed. VTE PROPHYLAXIS moderate to high risk SQ heparin. RESUSCITATION STATUS Discussed with daughter / POA. DNR. DISPOSITION lives at home with Daughter Saray Campa has 01/09 care through private pay Daughter wants pt to return home with home health Family Medicine follow-up with Dr. Boyer. PT/OT eval social service consulted for discharge planning . Vital Signs: Date Time Temp Pulse Resp B/P Pulse Ox O2 Delivery O2 Flow Rate FiO2 05/06/16 07:32 36.4 77 18 152/75 90 Room Air 05/06/16 00:00 92 Room Air 05/05/16 23:20 36.9 76 18 163/80 92 Room Air 05/05/16 17:00 Room Air 05/05/16 15:03 36.4 79 20 144/81 90 Room Air 05/05/16 08:20 Room Air Lab Results: Results Past 24 Hours Test 05/05/16 11:20 05/05/16 16:19 05/05/16 20:06 Range/Units Bedside Glucose 135 113 105 70-99 mg/dl
[2016-05-04] MEDS: TAMSULOSIN HCL 0.4 MG CAP PO SCH (20:30)
[2016-05-04] MEDS: INSULIN GLARGINE SOLOSTAR 100 UNITS/ML 3 ML PEN SC SCH (20:32)
[2016-05-04 23:53] VITALS: BP 146/77; PULSE 108; TEMP 36.7; O2SAT 90
[2016-05-05 07:09] VITALS: BP 154/96; PULSE 108; TEMP 36.8; O2SAT 93
[2016-05-05] MEDS: INSULIN ASPART 100 UNITS/ML 3 ML PEN SQ SCH ×4 (08:19→21:00)
[2016-05-05] MEDS: ALLOPURINOL 100 MG TAB PO SCH (08:20)
[2016-05-05] MEDS: LISINOPRIL 20 MG TAB PO SCH (08:20)
[2016-05-05] MEDS: ISOSORBIDE MONONITRATE 30 MG TABCR PO SCH (08:20)
[2016-05-05] MEDS: LEVOFLOXACIN 250 MG TAB PO SCH (08:20)
[2016-05-05] MEDS: CLOPIDOGREL BISULFATE 75 MG TAB PO SCH (08:20)
[2016-05-05] MEDS: DOCUSATE SODIUM/SENNA 50/8.6MG TAB PO SCH ×2 (08:21→22:41)
[2016-05-05] MEDS: METOPROLOL SUCC 25MG EXT REL TAB PO SCH (08:21)
[2016-05-05] MEDS: CHOLECALCIFEROL 1000 INTER.UNIT TAB PO SCH (08:21)
[2016-05-05] MEDS: LEVETIRACETAM 250 MG TAB PO SCH ×2 (08:21→22:39)
[2016-05-05] MEDS: HEPARIN SOD 5000 UNIT/0.5 ML CARP SQ SCH ×2 (08:30→22:46)
[2016-05-05] MEDS: SOAP SUDS ENEMA PR SCH (10:27)
[2016-05-05] MEDS ORDERED: ALBUTEROL HFA 8 GM INHALER INH PRN (14:00)
[2016-05-05] MEDS: SODIUM CHLORIDE 0.9% 1000ML 1,000 ML IV SCH (14:05)
[2016-05-05 15:03] VITALS: BP 144/81; PULSE 79; TEMP 36.4; O2SAT 90
[2016-05-05] MEDS: TAMSULOSIN HCL 0.4 MG CAP PO SCH (22:41)
[2016-05-05] MEDS: INSULIN GLARGINE SOLOSTAR 100 UNITS/ML 3 ML PEN SC SCH (22:44)
[2016-05-05 23:20] VITALS: BP 163/80; PULSE 76; TEMP 36.9; O2SAT 92
--- NOTE | 2016-05-05 23:26 | Progress Note ---
Internal Med Progress Note Date of Service: May 05, 2016. Provider Documentation: SUBJECTIVE: found to have very poor urine out out in link bladder scan shows < 50 ml urine pt appears to be clinically dehydrated very poor pO intake for lethargy , sleeping most part of the day IV fluid ordered wakes up briefly with voice no recognition to person or place arousable says ' briefly -I am ok ' when asked how he is feeling falls back to sleep easily OBJECTIVE: Vital Signs-as noted below Exam: General-elderly male, advanced dementia ,sleeping , wakes up briefly , confusion persists , Eyes-sclera non icteric Lungs-diminished , no audible wheeze Heart-regular Abdomen-soft, Extremities-stage 1 pressure sore on bilat heels , waffle boot ordered Neuro-advanced dementia ,encephalopathic due to dehydration , moving limbs, no facial droop, no focal deficit noted Lab data as noted below. ASSESSMENT & PLAN: ABDOMINAL PAIN/URINARY RETENTION symptom improved after Link catheter insertion possible cause -BPH , chronic debilitating status , bed bound with advance dementia Detrol LA d/karlie UA negative for infection started on Flomax Voiding trial prior to discharge given multiple co morbidities pt may requiring chronic indwelling Link CONSTIPATION Abdominal films demonstrate moderate-severe constipation. Bowel regimen as ordered. having bowel movement CLARKE ON CKD STAGE 3 -due to dehydration , poor PO intake decreased urine out put , with mild elevation of cr form baseline ordered gentle IV fluid hold Lasix hold ACEI till cr returns to baseline CHRONIC CHF Chronic left ventricular diastolic heart failure. currently dehydrated hold Lasix /ASEI ; [place] hydration monitor vol status ATRIAL FIBRILLATION Rate controlled on metoprolol. Not a candidate for chronic anticoagulated, dementia /high fall risk. ASPIRATION PNEUMONIA Finish course of levofloxacin. cont Pureed diet with [place] thick liquid strict aspiration precaution will need assistance with each feeding HYPOXIA History of sleep apnea, but doesn't tolerate CPAP. May need nocturnal O2 at home. nocturnal pulse oximetry. DM TYPE II Hgb A1C 7.2 on 04/24/16. Hold sitagliptin-poor pO intake , lethargy Continue Lantus. NovoLog coverage as needed. VTE PROPHYLAXIS moderate to high risk SQ heparin. RESUSCITATION STATUS Discussed with daughter / POA. DNR. DISPOSITION lives at home with Daughter Saray Campa has 24/ care through private pay Daughter wants pt to return home with home health Family Medicine follow-up with Dr. Boyer. PT/OT eval social service consulted for discharge planning . Vital Signs: Date Time Temp Pulse Resp B/P Pulse Ox O2 Delivery O2 Flow Rate FiO2 05/06/16 07:32 36.4 77 18 152/75 90 Room Air 05/06/16 00:00 92 Room Air 05/05/16 23:20 36.9 76 18 163/80 92 Room Air 05/05/16 17:00 Room Air 05/05/16 15:03 36.4 79 20 144/81 90 Room Air 05/05/16 08:20 Room Air Lab Results: Results Past 24 Hours Test 05/05/16 11:20 05/05/16 16:19 05/05/16 20:06 05/06/16 07:54 Range/Units Bedside Glucose 135 113 105 81 70-99 mg/dl Test 05/06/16 07:58 Range/Units
[2016-05-06] VITALS: O2SAT 92
[2016-05-06] MEDS: SODIUM CHLORIDE 0.9% 1000ML 1,000 ML IV SCH ×2 (02:30→18:50)
[2016-05-06 07:32] VITALS: BP 152/75; PULSE 77; TEMP 36.4; O2SAT 90
[2016-05-06] MEDS ORDERED: SOD PHOSPHATE/SOD BIPHOSPHATE ENEMA 132 ML BTL PR PRN (08:00)
[2016-05-06] MEDS: LISINOPRIL 20 MG TAB PO SCH (08:00)
--- NOTE | 2016-05-06 08:55 | DIAGNOSTIC IMAGING REPORT ---
CHEST ONE VIEW PORTABLE CLINICAL HISTORY: Shortness of breath, hypoxia. COMPARISON STUDY: 05/03/2016 FINDINGS: The cardiac and mediastinal contours remain stable. 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 Calcified pleural plaques are again evident. There is radiographic evidence of congestive failure with pulmonary edema. There are bilateral pleural effusions. Bibasilar opacities, likely reflect a combination of edema and compressive atelectatic change.[ IMPRESSION: Persistent congestive failure, bilateral pleural effusions, and bibasilar airspace opacities. Electronically signed by: Julius Vasquez M.D. 05/06/2016 8:53 AM Dictated Date/Time: 05/06/2016 8:52 AM
[2016-05-06] MEDS: LEVETIRACETAM 250 MG TAB PO SCH ×2 (09:03→20:16)
[2016-05-06] MEDS: CLOPIDOGREL BISULFATE 75 MG TAB PO SCH (09:03)
[2016-05-06] MEDS: ISOSORBIDE MONONITRATE 30 MG TABCR PO SCH (09:03)
[2016-05-06] MEDS: DOCUSATE SODIUM/SENNA 50/8.6MG TAB PO SCH ×2 (09:03→20:16)
[2016-05-06] MEDS: METOPROLOL SUCC 25MG EXT REL TAB PO SCH (09:04)
[2016-05-06] MEDS: ALLOPURINOL 100 MG TAB PO SCH (09:04)
[2016-05-06] MEDS: CHOLECALCIFEROL 1000 INTER.UNIT TAB PO SCH (09:04)
[2016-05-06] MEDS: INSULIN ASPART 100 UNITS/ML 3 ML PEN SQ SCH ×4 (09:06→20:33)
[2016-05-06] MEDS: HEPARIN SOD 5000 UNIT/0.5 ML CARP SQ SCH ×2 (09:09→20:17)
--- NOTE | 2016-05-06 09:19 | DIAGNOSTIC IMAGING REPORT ---
KUB CLINICAL HISTORY: Abdominal pain. COMPARISON STUDY: Abdominal series May 03, 2016. FINDINGS: Left abdominal surgical clips are noted. The bowel gas pattern is normal. A pelvic calcifications represent a phlebolith. No urinary calculi are identified. Bibasilar opacities and effusions are better depicted on the chest radiograph. IMPRESSION: No evidence for a bowel obstruction. Electronically signed by: Efren Oro M.D. 05/06/2016 9:18 AM Dictated Date/Time: 05/06/2016 9:15 AM
[2016-05-06 10:04] LABS: BUN/CREATININE RATIO 8.9 (10-20); CALCIUM 8.9 mg/dl (8.5-10.1); CREATININE 3.9 mg/dl (0.60-1.40); POTASSIUM 4.1 mmol/L (3.5-5.1)
[2016-05-06 15:29] VITALS: BP 145/77; PULSE 77; TEMP 36.7; O2SAT 96
[2016-05-06] MEDS: INSULIN GLARGINE SOLOSTAR 100 UNITS/ML 3 ML PEN SC SCH (20:57)
--- NOTE | 2016-05-06 22:03 | Progress Note ---
Subjective Date of Service: May 06, 2016. Subjective Pt evaluation today including: conversation w/ family, physical exam, lab review, review of studies, review of inpatient medication list Saw/examined the patient in room 414 He is lethargic and somnolent, does not awake with stimuli Daughter in the room, I spoke with her regarding patient's condition Problem List Medical Problems: (1) Acute renal failure Status: Acute (2) Altered mental status Status: Acute (3) Chest pain Status: Acute (4) Chronic renal disease Status: Acute (5) Constipation Status: Acute (6) Elevated troponin Status: Acute (7) Esophageal foreign body Status: Acute (8) Hypoxia Status: Acute (9) New onset a-fib Status: Acute (10) Pneumonia Status: Acute (11) Precordial chest pain Status: Acute (12) Urinary retention Status: Acute (13) UTI (urinary tract infection) Status: Acute (14) Weakness Status: Acute Medications Current Inpatient Medications Medications (Trade) Dose Ordered Sig/Mike Route Start Time Stop Time Status Last Admin Dose Admin Acetaminophen (Tylenol Tab) 650 mg Q4H PRN PO 05/03/16 22:00 06/02/16 21:59 Heparin Sodium (Porcine) (Heparin Sq 5000 Unit/0.5ml) 5,000 unit Q12 SQ 05/04/16 09:00 06/03/16 08:59 05/06/16 20:17 5,000 UNIT Allopurinol (Zyloprim Tab) 200 mg DAILY PO 05/04/16 08:00 06/03/16 08:59 05/06/16 09:04 200 MG Cholecalciferol (Vitamin D Tab) 2,000 inter.unit DAILY PO 05/04/16 08:00 06/03/16 08:59 05/06/16 09:04 2,000 INTER.UNIT Clopidogrel Bisulfate (plAVix TAB) 75 mg DAILY PO 05/04/16 08:00 06/03/16 08:59 05/06/16 09:03 75 MG Insulin Aspart (novoLOG ASPART) ACHS SQ 05/04/16 06:30 06/03/16 06:59 05/04/16 18:09 1 UNITS Insulin Glargine (Lantus Solostar Pen) 13 unit HS SC 05/04/16 21:00 06/03/16 20:59 05/06/16 20:57 13 UNIT Isosorbide Mononitrate (Imdur Ext Rel Tab) 30 mg QAM PO 05/04/16 08:00 06/03/16 08:59 05/06/16 09:03 30 MG Levetiracetam (Keppra Tab) 250 mg BID PO 05/04/16 08:00 06/03/16 08:59 05/06/16 20:16 250 MG Lisinopril (Zestril Tab) 20 mg QAM PO 05/04/16 08:00 06/03/16 08:59 Future Hold 05/05/16 08:20 20 MG Metoprolol Succinate (Toprol Xl Tab) 25 mg DAILY PO 05/04/16 08:00 06/03/16 08:59 05/06/16 09:04 25 MG Nitroglycerin (Nitrostat Tab) 0.4 mg PRN UT 05/03/16 22:00 06/02/16 21:59 Glucose (Glucose 40% Gel) 15-30 GRAMS 15 GRAMS... UD PRN PO 05/03/16 23:30 06/02/16 23:29 Glucose (Glucose Chew Tab) 4-8 Tablets 4 Tabl... UD PRN PO 05/03/16 23:30 06/02/16 23:29 Dextrose (Dextrose 50% 50ML Syringe) 25-50ML OF 50% DW IV FOR... UD PRN IV 05/03/16 23:30 06/02/16 23:29 Glucagon (Glucagon Inj) 1 mg UD PRN SQ 05/03/16 23:30 06/02/16 23:29 Tamsulosin HCl (Flomax Cap) 0.4 mg HS PO 05/04/16 21:00 06/03/16 20:59 05/05/16 22:41 0.4 MG Senna/Docusate Sodium 2 tab 2 tab BID PO 05/04/16 08:00 05/06/16 20:16 2 TAB Sodium Chloride (Nss 1000ml) 1,000 ml @ 50 mls/hr Q20H IV 05/05/16 14:00 06/04/16 13:59 05/06/16 18:50 50 MLS/HR Albuterol (Ventolin Hfa Inhaler) 2 puffs Q4H PRN INH 05/05/16 14:00 06/04/16 13:59 Sodium Biphosphate/ Sodium Phosphate (Fleet Enema) 132 ml DAILY PRN [place] 05/06/16 08:00 06/05/16 07:59 Objective Vital Signs Date Time Temp Pulse Resp B/P Pulse Ox O2 Delivery O2 Flow Rate FiO2 05/06/16 16:00 Room Air 05/06/16 15:29 36.7 77 20 145/77 96 Room Air 05/06/16 10:47 Room Air 05/06/16 07:32 36.4 77 18 152/75 90 Room Air 05/06/16 00:00 92 Room Air 05/05/16 23:20 36.9 76 18 163/80 92 Room Air Physical Exam General Appearance: + pertinent finding (somnolent, not arousable; moves to sternal rub) Respiratory/Chest: no respiratory distress, no accessory muscle use, + decreased breath sounds Cardiovascular: regular rate, rhythm, no edema, no murmur Laboratory Results Last 24 Hours Test 05/06/16 07:54 05/06/16 09:03 05/06/16 11:30 05/06/16 16:45 Bedside Glucose 81 mg/dl 101 mg/dl 82 mg/dl Sodium Level 145 mmol/L Potassium Level 4.1 mmol/L Chloride Level 106 mmol/L Carbon Dioxide Level 30 mmol/L Anion Gap 9.0 mmol/L Blood Urea Nitrogen 35 mg/dl Creatinine 3.90 mg/dl Est Creatinine Clear Calc Drug Dose 15.1 ml/min Estimated GFR () 15.6 Estimated GFR (Non- 13.5 BUN/Creatinine Ratio 8.9 Random Glucose 91 mg/dl Calcium Level 8.9 mg/dl Test 05/06/16 20:31 Bedside Glucose 106 mg/dl Assessment and Plan Acute Kidney Injury superimposed on CKD stage 3 significant jump in creat to 3.9 urine is dark and patient is not eating much will increase IVF rate to 100mL/hr and recheck creat in AM hold CAMERON-I and Lasix for now -due to dehydration , poor PO intake decreased urine out put , with mild elevation of cr form baseline ordered gentle IV fluid hold Lasix hold ACEI till cr returns to baseline ABDOMINAL PAIN/URINARY RETENTION Urinary retention is an issue continue catheter, may require chronic Zendejas symptom improved after Zendejas catheter insertion possible cause -BPH , chronic debilitating status , bed bound with advance dementia Detrol LA d/karlie UA negative for infection started on Flomax Voiding trial prior to discharge given multiple co morbidities pt may requiring chronic indwelling Zendejas CONSTIPATION Abdominal films demonstrate moderate-severe constipation. Bowel regimen as ordered. having bowel movement CHRONIC CHF Chronic left ventricular diastolic heart failure. currently dehydrated hold Lasix /ASEI ; gustabo hydration monitor vol status ATRIAL FIBRILLATION Rate controlled on metoprolol. Not a candidate for chronic anticoagulated, dementia /high fall risk. ASPIRATION PNEUMONIA Finish course of levofloxacin. cont Pureed diet with [place] thick liquid strict aspiration precaution will need assistance with each feeding HYPOXIA History of sleep apnea, but doesn't tolerate CPAP. May need nocturnal O2 at home. nocturnal pulse oximetry. DM TYPE II Hgb A1C 7.2 on 04/24/16. Hold sitagliptin-poor pO intake , lethargy Continue Lantus. NovoLog coverage as needed. VTE PROPHYLAXIS moderate to high risk SQ heparin. RESUSCITATION STATUS Discussed with daughter / POA. DNR. DISPOSITION lives at home with Daughter Saray Campa has 01/09 care through private pay Daughter wants pt to return home with home health Family Medicine follow-up with Dr. Boyer. PT/OT eval social service consulted for discharge planning .
[2016-05-06] MEDS: TAMSULOSIN HCL 0.4 MG CAP PO SCH (22:28)
[2016-05-07 00:28] VITALS: PULSE 106; TEMP 37.1; O2SAT 94
[2016-05-07] MEDS: SODIUM CHLORIDE 0.9% 1000ML 1,000 ML IV SCH ×4 (03:36→22:43)
[2016-05-07 07:26] LABS: HEMATOCRIT 36.4 % (42-52); MEAN CELL VOLUME 89.7 fL (80-100); MEAN CORPUSCULAR HEMOGLOBIN 30.8 pg (25-34); MEAN CORPUSCULAR HGB CONC 34.3 g/dl (32-36); MEAN PLATELET VOLUME 9.5 fL (7.4-10.4); PLATELET COUNT 203 K/uL (130-400); RED BLOOD COUNT 4.06 M/uL (4.7-6.1)
[2016-05-07] MEDS: GLUCOSE 40% GEL 15 GM TUBE PO PRN (07:48)
[2016-05-07 07:49] VITALS: BP 166/73; PULSE 70; TEMP 36.4; O2SAT 90
[2016-05-07 07:58] LABS: BUN/CREATININE RATIO 9.1 (10-20); CALCIUM 8.8 mg/dl (8.5-10.1); CREATININE 3.9 mg/dl (0.60-1.40); POTASSIUM 3.7 mmol/L (3.5-5.1)
[2016-05-07] MEDS: ALLOPURINOL 100 MG TAB PO SCH (09:01)
[2016-05-07] MEDS: DOCUSATE SODIUM/SENNA 50/8.6MG TAB PO SCH ×2 (09:02→21:33)
[2016-05-07] MEDS: LEVETIRACETAM 250 MG TAB PO SCH ×2 (09:02→21:33)
[2016-05-07] MEDS: CLOPIDOGREL BISULFATE 75 MG TAB PO SCH (09:02)
[2016-05-07] MEDS: METOPROLOL SUCC 25MG EXT REL TAB PO SCH (09:02)
[2016-05-07] MEDS: ISOSORBIDE MONONITRATE 30 MG TABCR PO SCH (09:02)
[2016-05-07] MEDS: INSULIN ASPART 100 UNITS/ML 3 ML PEN SQ SCH ×4 (09:03→21:00)
[2016-05-07] MEDS: CHOLECALCIFEROL 1000 INTER.UNIT TAB PO SCH (09:03)
[2016-05-07] MEDS: HEPARIN SOD 5000 UNIT/0.5 ML CARP SQ SCH ×2 (09:06→21:35)
[2016-05-07 15:29] VITALS: BP 151/78; PULSE 72; TEMP 36.3; O2SAT 94
[2016-05-07 16:00] VITALS: O2SAT 94
--- NOTE | 2016-05-07 18:44 | Progress Note ---
Subjective Date of Service: May 07, 2016. Subjective Pt evaluation today including: conversation w/ family, physical exam, lab review, review of studies, review of inpatient medication list Saw/examined the patient in room 414 He is awake and being fed dinner, and tolerating it well No aspiration noted during dinner Is not answering questions Problem List Medical Problems: (1) Acute renal failure Status: Acute (2) Altered mental status Status: Acute (3) Chest pain Status: Acute (4) Chronic renal disease Status: Acute (5) Constipation Status: Acute (6) Elevated troponin Status: Acute (7) Esophageal foreign body Status: Acute (8) Hypoxia Status: Acute (9) New onset a-fib Status: Acute (10) Pneumonia Status: Acute (11) Precordial chest pain Status: Acute (12) Urinary retention Status: Acute (13) UTI (urinary tract infection) Status: Acute (14) Weakness Status: Acute Review of Systems Unable to obtain Medications Current Inpatient Medications Medications (Trade) Dose Ordered Sig/Mike Route Start Time Stop Time Status Last Admin Dose Admin Acetaminophen (Tylenol Tab) 650 mg Q4H PRN PO 05/03/16 22:00 06/02/16 21:59 Heparin Sodium (Porcine) (Heparin Sq 5000 Unit/0.5ml) 5,000 unit Q12 SQ 05/04/16 09:00 06/03/16 08:59 05/07/16 09:06 5,000 UNIT Allopurinol (Zyloprim Tab) 200 mg DAILY PO 05/04/16 08:00 06/03/16 08:59 05/07/16 09:01 200 MG Cholecalciferol (Vitamin D Tab) 2,000 inter.unit DAILY PO 05/04/16 08:00 06/03/16 08:59 05/07/16 09:03 2,000 INTER.UNIT Clopidogrel Bisulfate (plAVix TAB) 75 mg DAILY PO 05/04/16 08:00 06/03/16 08:59 05/07/16 09:02 75 MG Insulin Aspart (novoLOG ASPART) ACHS SQ 05/04/16 06:30 06/03/16 06:59 05/04/16 18:09 1 UNITS Insulin Glargine (Lantus Solostar Pen) 13 unit HS SC 05/04/16 21:00 06/03/16 20:59 05/06/16 20:57 13 UNIT Isosorbide Mononitrate (Imdur Ext Rel Tab) 30 mg QAM PO 05/04/16 08:00 06/03/16 08:59 05/07/16 09:02 30 MG Levetiracetam (Keppra Tab) 250 mg BID PO 05/04/16 08:00 06/03/16 08:59 05/07/16 09:02 250 MG Lisinopril (Zestril Tab) 20 mg QAM PO 05/04/16 08:00 06/03/16 08:59 Future Hold 05/05/16 08:20 20 MG Metoprolol Succinate (Toprol Xl Tab) 25 mg DAILY PO 05/04/16 08:00 06/03/16 08:59 05/07/16 09:02 25 MG Nitroglycerin (Nitrostat Tab) 0.4 mg PRN UT 05/03/16 22:00 06/02/16 21:59 Glucose (Glucose 40% Gel) 15-30 GRAMS 15 GRAMS... UD PRN PO 05/03/16 23:30 06/02/16 23:29 05/07/16 07:48 15 GM Glucose (Glucose Chew Tab) 4-8 Tablets 4 Tabl... UD PRN PO 05/03/16 23:30 06/02/16 23:29 Dextrose (Dextrose 50% 50ML Syringe) 25-50ML OF 50% DW IV FOR... UD PRN IV 05/03/16 23:30 06/02/16 23:29 Glucagon (Glucagon Inj) 1 mg UD PRN SQ 05/03/16 23:30 06/02/16 23:29 Tamsulosin HCl (Flomax Cap) 0.4 mg HS PO 05/04/16 21:00 06/03/16 20:59 05/06/16 22:28 0.4 MG Senna/Docusate Sodium 2 tab 2 tab BID PO 05/04/16 08:00 05/07/16 09:02 2 TAB Sodium Chloride (Nss 1000ml) 1,000 ml @ 125 mls/hr Q8H IV 05/05/16 14:00 06/04/16 13:59 05/07/16 18:10 125 MLS/HR Albuterol (Ventolin Hfa Inhaler) 2 puffs Q4H PRN INH 05/05/16 14:00 06/04/16 13:59 Sodium Biphosphate/ Sodium Phosphate (Fleet Enema) 132 ml DAILY PRN [place] 05/06/16 08:00 06/05/16 07:59 Objective Vital Signs Date Time Temp Pulse Resp B/P Pulse Ox O2 Delivery O2 Flow Rate FiO2 05/07/16 15:29 36.3 72 18 151/78 94 Room Air 05/07/16 08:20 Room Air 05/07/16 07:49 36.4 70 16 166/73 90 Room Air 05/07/16 00:28 37.1 106 20 94 Room Air 05/07/16 00:15 Room Air Physical Exam General Appearance: no apparent distress Respiratory/Chest: lungs clear, normal breath sounds, no respiratory distress, no accessory muscle use Cardiovascular: regular rate, rhythm, no edema, no murmur Extremities: normal inspection, no pedal edema Neurologic/Psychiatric: alert, + pertinent finding (patient awake, but currently nonverbal) Laboratory Results Last 24 Hours Test 05/06/16 20:31 05/07/16 07:02 05/07/16 07:27 05/07/16 07:42 Bedside Glucose 106 mg/dl 62 mg/dl 68 mg/dl White Blood Count 8.20 K/uL Red Blood Count 4.06 M/uL Hemoglobin 12.5 g/dL Hematocrit 36.4 % Mean Corpuscular Volume 89.7 fL Mean Corpuscular Hemoglobin 30.8 pg Mean Corpuscular Hemoglobin Concent 34.3 g/dl RDW Standard Deviation 47.0 fL RDW Coefficient of Variation 14.4 % Platelet Count 203 K/uL Mean Platelet Volume 9.5 fL Sodium Level 144 mmol/L Potassium Level 3.7 mmol/L Chloride Level 109 mmol/L Carbon Dioxide Level 27 mmol/L Anion Gap 8.0 mmol/L Blood Urea Nitrogen 36 mg/dl Creatinine 3.90 mg/dl Est Creatinine Clear Calc Drug Dose 15.1 ml/min Estimated GFR () 15.6 Estimated GFR (Non- 13.5 BUN/Creatinine Ratio 9.1 Random Glucose 62 mg/dl Calcium Level 8.8 mg/dl Test 05/07/16 08:51 05/07/16 11:28 05/07/16 16:53 Bedside Glucose 84 mg/dl 101 mg/dl 86 mg/dl Assessment and Plan Acute Kidney Injury superimposed on CKD stage 3 05/07 recheck of creat this morning shows 3.9 again will increase IVFs he is now eating dinner, which should improve seems prerenal in nature 05/06 significant jump in creat to 3.9 urine is dark and patient is not eating much will increase IVF rate to 100mL/hr and recheck creat in AM hold CAMERON-I and Lasix for now -due to dehydration , poor PO intake decreased urine out put , with mild elevation of cr form baseline ordered gentle IV fluid hold Lasix hold ACEI till cr returns to baseline Lower Abdominal Pain secondary to Urinary Retention 05/07 Zendejas draining dark urine increase fluids continue Flomax will try to d/c Zendejas prior to discharge for voiding trial; if not, may require chronic Zendejas 05/06 Urinary retention is an issue continue catheter, may require chronic Zendejas symptom improved after Zendejas catheter insertion possible cause -BPH , chronic debilitating status , bed bound with advance dementia Detrol LA d/karlie UA negative for infection started on Flomax Voiding trial prior to discharge given multiple co morbidities pt may requiring chronic indwelling Zendejas CONSTIPATION Abdominal films demonstrate moderate-severe constipation. Bowel regimen as ordered. having bowel movement CHRONIC CHF Chronic left ventricular diastolic heart failure. currently dehydrated hold Lasix /ASEI ; gustabo hydration monitor vol status ATRIAL FIBRILLATION Rate controlled on metoprolol. Not a candidate for chronic anticoagulated, dementia /high fall risk. ASPIRATION PNEUMONIA Finish course of levofloxacin. cont Pureed diet with [place] thick liquid strict aspiration precaution will need assistance with each feeding HYPOXIA History of sleep apnea, but doesn't tolerate CPAP. May need nocturnal O2 at home. nocturnal pulse oximetry. DM TYPE II Hgb A1C 7.2 on 04/24/16. Hold sitagliptin-poor pO intake , lethargy Continue Lantus. NovoLog coverage as needed. VTE PROPHYLAXIS moderate to high risk SQ heparin. RESUSCITATION STATUS Discussed with daughter / POA. DNR. DISPOSITION lives at home with Daughter Saray Campa has 01/09 care through private pay Daughter wants pt to return home with home health Family Medicine follow-up with Dr. Boyer. PT/OT eval social service consulted for discharge planning .
[2016-05-07] MEDS: TAMSULOSIN HCL 0.4 MG CAP PO SCH (21:32)
[2016-05-07] MEDS: INSULIN GLARGINE SOLOSTAR 100 UNITS/ML 3 ML PEN SC SCH (21:34)
[2016-05-07 23:49] VITALS: BP 182/88; PULSE 100; TEMP 36.7; O2SAT 93
[2016-05-08] VITALS (8 sets, daily range): BP systolic 149–178; BP diastolic 78–92; PULSE 69–72; TEMP 36.1–36.8; O2SAT 94–95
[2016-05-08] MEDS: SODIUM CHLORIDE 0.9% 1000ML 1,000 ML IV SCH ×2 (06:33→14:38)
[2016-05-08 08:51] LABS: MEAN CELL VOLUME 91.4 fL (80-100); MEAN CORPUSCULAR HEMOGLOBIN 31.5 pg (25-34); MEAN CORPUSCULAR HGB CONC 34.4 g/dl (32-36); PLATELET COUNT 204 K/uL (130-400); RED BLOOD COUNT 3.94 M/uL (4.7-6.1); WHITE BLOOD COUNT 5.92 K/uL (4.8-10.8)
[2016-05-08] MEDS: CLOPIDOGREL BISULFATE 75 MG TAB PO SCH (08:58)
[2016-05-08] MEDS: HEPARIN SOD 5000 UNIT/0.5 ML CARP SQ SCH ×2 (08:58→21:52)
[2016-05-08] MEDS: METOPROLOL SUCC 25MG EXT REL TAB PO SCH (08:59)
[2016-05-08] MEDS: LEVETIRACETAM 250 MG TAB PO SCH ×2 (08:59→20:56)
[2016-05-08] MEDS: ISOSORBIDE MONONITRATE 30 MG TABCR PO SCH (08:59)
[2016-05-08] MEDS: DOCUSATE SODIUM/SENNA 50/8.6MG TAB PO SCH ×2 (08:59→20:00)
[2016-05-08] MEDS: CHOLECALCIFEROL 1000 INTER.UNIT TAB PO SCH (08:59)
[2016-05-08] MEDS: INSULIN ASPART 100 UNITS/ML 3 ML PEN SQ SCH ×4 (09:00→20:55)
[2016-05-08] MEDS: ALLOPURINOL 100 MG TAB PO SCH (09:00)
[2016-05-08 09:36] LABS: BUN/CREATININE RATIO 12.1 (10-20); CALCIUM 8.4 mg/dl (8.5-10.1); CREATININE 1.9 mg/dl (0.60-1.40); MAGNESIUM 1.8 mg/dl (1.8-2.4); POTASSIUM 3.6 mmol/L (3.5-5.1)
[2016-05-08] MEDS ORDERED: AMLODIPINE BESYLATE 5 MG TAB PO ONE (18:00)
--- NOTE | 2016-05-08 18:43 | Progress Note ---
Subjective Date of Service: May 08, 2016. Subjective Pt evaluation today including: conversation w/ patient, physical exam, lab review, review of studies, review of inpatient medication list Saw/examined the patient in room 414 He is awake, alert and conversing Wants to get up out of bed Denies any problems Problem List Medical Problems: (1) Acute renal failure Status: Acute (2) Altered mental status Status: Acute (3) Chest pain Status: Acute (4) Chronic renal disease Status: Acute (5) Constipation Status: Acute (6) Elevated troponin Status: Acute (7) Esophageal foreign body Status: Acute (8) Hypoxia Status: Acute (9) New onset a-fib Status: Acute (10) Pneumonia Status: Acute (11) Precordial chest pain Status: Acute (12) Urinary retention Status: Acute (13) UTI (urinary tract infection) Status: Acute (14) Weakness Status: Acute Review of Systems Constitutional: No chills, No fever, No weakness Respiratory: No shortness of breath Cardiac: No chest pain Abdomen: No diarrhea, No nausea, No pain, No vomiting Medications Current Inpatient Medications Medications (Trade) Dose Ordered Sig/Mike Route Start Time Stop Time Status Last Admin Dose Admin Acetaminophen (Tylenol Tab) 650 mg Q4H PRN PO 05/03/16 22:00 06/02/16 21:59 Heparin Sodium (Porcine) (Heparin Sq 5000 Unit/0.5ml) 5,000 unit Q12 SQ 05/04/16 09:00 06/03/16 08:59 05/08/16 08:58 5,000 UNIT Allopurinol (Zyloprim Tab) 200 mg DAILY PO 05/04/16 08:00 06/03/16 08:59 05/08/16 09:00 200 MG Cholecalciferol (Vitamin D Tab) 2,000 inter.unit DAILY PO 05/04/16 08:00 06/03/16 08:59 05/08/16 08:59 2,000 INTER.UNIT Clopidogrel Bisulfate (plAVix TAB) 75 mg DAILY PO 05/04/16 08:00 06/03/16 08:59 05/08/16 08:58 75 MG Insulin Aspart (novoLOG ASPART) ACHS SQ 05/04/16 06:30 06/03/16 06:59 05/04/16 18:09 1 UNITS Insulin Glargine (Lantus Solostar Pen) 13 unit HS SC 05/04/16 21:00 06/03/16 20:59 05/07/16 21:34 13 UNIT Isosorbide Mononitrate (Imdur Ext Rel Tab) 30 mg QAM PO 05/04/16 08:00 06/03/16 08:59 05/08/16 08:59 30 MG Levetiracetam (Keppra Tab) 250 mg BID PO 05/04/16 08:00 06/03/16 08:59 05/08/16 08:59 250 MG Lisinopril (Zestril Tab) 20 mg QAM PO 05/04/16 08:00 06/03/16 08:59 Future Hold 05/05/16 08:20 20 MG Metoprolol Succinate (Toprol Xl Tab) 25 mg DAILY PO 05/04/16 08:00 06/03/16 08:59 05/08/16 08:59 25 MG Nitroglycerin (Nitrostat Tab) 0.4 mg PRN UT 05/03/16 22:00 06/02/16 21:59 Glucose (Glucose 40% Gel) 15-30 GRAMS 15 GRAMS... UD PRN PO 05/03/16 23:30 06/02/16 23:29 05/07/16 07:48 15 GM Glucose (Glucose Chew Tab) 4-8 Tablets 4 Tabl... UD PRN PO 05/03/16 23:30 06/02/16 23:29 Dextrose (Dextrose 50% 50ML Syringe) 25-50ML OF 50% DW IV FOR... UD PRN IV 05/03/16 23:30 06/02/16 23:29 Glucagon (Glucagon Inj) 1 mg UD PRN SQ 05/03/16 23:30 06/02/16 23:29 Tamsulosin HCl (Flomax Cap) 0.4 mg HS PO 05/04/16 21:00 06/03/16 20:59 05/07/16 21:32 0.4 MG Senna/Docusate Sodium 2 tab 2 tab BID PO 05/04/16 08:00 05/08/16 08:59 2 TAB Sodium Chloride (Nss 1000ml) 1,000 ml @ 80 mls/hr [id number] IV 05/05/16 14:00 06/04/16 13:59 05/08/16 14:38 125 MLS/HR Albuterol (Ventolin Hfa Inhaler) 2 puffs Q4H PRN INH 05/05/16 14:00 06/04/16 13:59 Sodium Biphosphate/ Sodium Phosphate (Fleet Enema) 132 ml DAILY PRN [place] 05/06/16 08:00 06/05/16 07:59 Objective Vital Signs Date Time Temp Pulse Resp B/P Pulse Ox O2 Delivery O2 Flow Rate FiO2 05/08/16 16:00 94 Room Air 05/08/16 15:40 36.8 70 18 162/81 95 Room Air 05/08/16 12:00 69 149/78 05/08/16 09:04 69 168/79 05/08/16 08:45 Room Air 05/08/16 08:17 36.1 72 18 178/82 94 Room Air 05/08/16 01:28 Room Air 05/08/16 00:16 71 175/84 05/07/16 23:49 36.7 100 20 182/88 93 Room Air Physical Exam General Appearance: no apparent distress Respiratory/Chest: lungs clear, normal breath sounds, no respiratory distress, no accessory muscle use Cardiovascular: no edema, no murmur, + irregularly irregular Abdomen: + pertinent finding (link catheter in place, draining light yellow urine) Extremities: normal inspection, no pedal edema Neurologic/Psychiatric: no motor/sensory deficits, alert, normal mood/affect Laboratory Results Last 24 Hours Test 05/07/16 19:51 05/08/16 07:48 05/08/16 08:43 05/08/16 11:51 Bedside Glucose 101 mg/dl 83 mg/dl 87 mg/dl White Blood Count 5.92 K/uL Red Blood Count 3.94 M/uL Hemoglobin 12.4 g/dL Hematocrit 36.0 % Mean Corpuscular Volume 91.4 fL Mean Corpuscular Hemoglobin 31.5 pg Mean Corpuscular Hemoglobin Concent 34.4 g/dl RDW Standard Deviation 49.0 fL RDW Coefficient of Variation 14.5 % Platelet Count 204 K/uL Mean Platelet Volume 9.0 fL Sodium Level 146 mmol/L Potassium Level 3.6 mmol/L Chloride Level 110 mmol/L Carbon Dioxide Level 29 mmol/L Anion Gap 7.0 mmol/L Blood Urea Nitrogen 23 mg/dl Creatinine 1.90 mg/dl Est Creatinine Clear Calc Drug Dose 31.0 ml/min Estimated GFR () 37.2 Estimated GFR (Non- 32.1 BUN/Creatinine Ratio 12.1 Random Glucose 78 mg/dl Calcium Level 8.4 mg/dl Magnesium Level 1.8 mg/dl Test 05/08/16 16:25 Bedside Glucose 95 mg/dl Assessment and Plan Acute Kidney Injury superimposed on CKD stage 3 05/08 creat down to 1.9 likely prerenal kidney injury continue IVFs and monitor for fluid overload encouraged PO intake 05/07 recheck of creat this morning shows 3.9 again will increase IVFs he is now eating dinner, which should improve seems prerenal in nature 05/06 significant jump in creat to 3.9 urine is dark and patient is not eating much will increase IVF rate to 100mL/hr and recheck creat in AM hold CAMERON-I and Lasix for now -due to dehydration , poor PO intake decreased urine out put , with mild elevation of cr form baseline ordered gentle IV fluid hold Lasix hold ACEI till cr returns to baseline Lower Abdominal Pain secondary to Urinary Retention 05/08 continue with the Link will try voiding trial in a few days 05/07 Link draining dark urine increase fluids continue Flomax will try to d/c Link prior to discharge for voiding trial; if not, may require chronic Link 05/06 Urinary retention is an issue continue catheter, may require chronic Link symptom improved after Link catheter insertion possible cause -BPH , chronic debilitating status , bed bound with advance dementia Detrol LA d/karlie UA negative for infection started on Flomax Voiding trial prior to discharge given multiple co morbidities pt may requiring chronic indwelling Link CONSTIPATION Abdominal films demonstrate moderate-severe constipation. Bowel regimen as ordered. having bowel movement CHRONIC CHF Chronic left ventricular diastolic heart failure. currently dehydrated hold Lasix /ASEI ; gustabo hydration monitor vol status ATRIAL FIBRILLATION Rate controlled on metoprolol. Not a candidate for chronic anticoagulated, dementia /high fall risk. ASPIRATION PNEUMONIA Finish course of levofloxacin. cont Pureed diet with [place] thick liquid strict aspiration precaution will need assistance with each feeding HYPOXIA History of sleep apnea, but doesn't tolerate CPAP. May need nocturnal O2 at home. nocturnal pulse oximetry. DM TYPE II Hgb A1C 7.2 on 04/24/16. Hold sitagliptin-poor pO intake , lethargy Continue Lantus. NovoLog coverage as needed. VTE PROPHYLAXIS moderate to high risk SQ heparin. RESUSCITATION STATUS Discussed with daughter / POA. DNR. DISPOSITION lives at home with Daughter Saray Campa has 01/09 care through private pay Daughter wants pt to return home with home health Family Medicine follow-up with Dr. Boyer. PT/OT eval social service consulted for discharge planning .
[2016-05-08] MEDS: TAMSULOSIN HCL 0.4 MG CAP PO SCH (20:56)
[2016-05-08] MEDS: INSULIN GLARGINE SOLOSTAR 100 UNITS/ML 3 ML PEN SC SCH (21:30)
[2016-05-09] MEDS: SODIUM CHLORIDE 0.9% 1000ML 1,000 ML IV SCH ×2 (00:28→13:33)
[2016-05-09 07:04] LABS: HEMATOCRIT 39.1 % (42-52); MEAN CELL VOLUME 89.1 fL (80-100); MEAN CORPUSCULAR HGB CONC 34.8 g/dl (32-36); MEAN PLATELET VOLUME 9.3 fL (7.4-10.4); PLATELET COUNT 235 K/uL (130-400); RED BLOOD COUNT 4.39 M/uL (4.7-6.1); WHITE BLOOD COUNT 6.52 K/uL (4.8-10.8)
[2016-05-09 07:33] LABS: BUN/CREATININE RATIO 12.1 (10-20); CALCIUM 8.5 mg/dl (8.5-10.1); CREATININE 1.4 mg/dl (0.60-1.40); POTASSIUM 3.4 mmol/L (3.5-5.1)
[2016-05-09 07:58] VITALS: BP 148/72; PULSE 85; TEMP 36.2; O2SAT 90
[2016-05-09] MEDS: DOCUSATE SODIUM/SENNA 50/8.6MG TAB PO SCH ×2 (08:00→20:00)
[2016-05-09] MEDS ORDERED: POTASSIUM CHLR 10 MEQ / WTR 10 MEQ in PREMIXED WATER 100 ML IV ONE (08:00)
[2016-05-09] MEDS: GLUCOSE 40% GEL 15 GM TUBE PO PRN (08:21)
[2016-05-09] MEDS: CLOPIDOGREL BISULFATE 75 MG TAB PO SCH (08:23)
[2016-05-09] MEDS: ALLOPURINOL 100 MG TAB PO SCH (08:23)
[2016-05-09] MEDS: ISOSORBIDE MONONITRATE 30 MG TABCR PO SCH (08:24)
[2016-05-09] MEDS: CHOLECALCIFEROL 1000 INTER.UNIT TAB PO SCH (08:24)
[2016-05-09] MEDS: LEVETIRACETAM 250 MG TAB PO SCH ×2 (08:24→20:44)
[2016-05-09] MEDS: METOPROLOL SUCC 25MG EXT REL TAB PO SCH (08:24)
[2016-05-09] MEDS: INSULIN ASPART 100 UNITS/ML 3 ML PEN SQ SCH ×4 (08:26→20:47)
[2016-05-09] MEDS: HEPARIN SOD 5000 UNIT/0.5 ML CARP SQ SCH ×3 (08:27→21:00)
[2016-05-09] MEDS ORDERED: NURSING VERBAL MED ORDER ONE (14:15)
[2016-05-09 15:30] VITALS: BP 108/65; PULSE 76; TEMP 36.7; O2SAT 93
[2016-05-09 16:00] VITALS: O2SAT 93
--- NOTE | 2016-05-09 17:18 | Progress Note ---
Subjective Date of Service: May 09, 2016. Subjective Pt evaluation today including: conversation w/ patient, physical exam, lab review, review of studies, review of inpatient medication list Saw/examined the patient in room 414 He is doing well, talking, awake, alert Good PO intake, feels fine Problem List Medical Problems: (1) Acute renal failure Status: Acute (2) Altered mental status Status: Acute (3) Chest pain Status: Acute (4) Chronic renal disease Status: Acute (5) Constipation Status: Acute (6) Elevated troponin Status: Acute (7) Esophageal foreign body Status: Acute (8) Hypoxia Status: Acute (9) New onset a-fib Status: Acute (10) Pneumonia Status: Acute (11) Precordial chest pain Status: Acute (12) Urinary retention Status: Acute (13) UTI (urinary tract infection) Status: Acute (14) Weakness Status: Acute Review of Systems Constitutional: No chills, No fever Respiratory: No shortness of breath Cardiac: No chest pain Abdomen: No diarrhea, No nausea, No pain, No vomiting Medications Current Inpatient Medications Medications (Trade) Dose Ordered Sig/Mike Route Start Time Stop Time Status Last Admin Dose Admin Acetaminophen (Tylenol Tab) 650 mg Q4H PRN PO 05/03/16 22:00 06/02/16 21:59 Heparin Sodium (Porcine) (Heparin Sq 5000 Unit/0.5ml) 5,000 unit Q12 SQ 05/04/16 09:00 06/03/16 08:59 05/09/16 08:27 5,000 UNIT Allopurinol (Zyloprim Tab) 200 mg DAILY PO 05/04/16 08:00 06/03/16 08:59 05/09/16 08:23 200 MG Cholecalciferol (Vitamin D Tab) 2,000 inter.unit DAILY PO 05/04/16 08:00 06/03/16 08:59 05/09/16 08:24 2,000 INTER.UNIT Clopidogrel Bisulfate (plAVix TAB) 75 mg DAILY PO 05/04/16 08:00 06/03/16 08:59 05/09/16 08:23 75 MG Insulin Aspart (novoLOG ASPART) ACHS SQ 05/04/16 06:30 06/03/16 06:59 05/09/16 13:57 2 UNITS Isosorbide Mononitrate (Imdur Ext Rel Tab) 30 mg QAM PO 05/04/16 08:00 06/03/16 08:59 05/09/16 08:24 30 MG Levetiracetam (Keppra Tab) 250 mg BID PO 05/04/16 08:00 06/03/16 08:59 05/09/16 08:24 250 MG Lisinopril (Zestril Tab) 20 mg QAM PO 05/04/16 08:00 06/03/16 08:59 Future Hold 05/05/16 08:20 20 MG Metoprolol Succinate (Toprol Xl Tab) 25 mg DAILY PO 05/04/16 08:00 06/03/16 08:59 05/09/16 08:24 25 MG Nitroglycerin (Nitrostat Tab) 0.4 mg PRN UT 05/03/16 22:00 06/02/16 21:59 Glucose (Glucose 40% Gel) 15-30 GRAMS 15 GRAMS... UD PRN PO 05/03/16 23:30 06/02/16 23:29 05/09/16 08:21 15 GM Glucose (Glucose Chew Tab) 4-8 Tablets 4 Tabl... UD PRN PO 05/03/16 23:30 06/02/16 23:29 Dextrose (Dextrose 50% 50ML Syringe) 25-50ML OF 50% DW IV FOR... UD PRN IV 05/03/16 23:30 06/02/16 23:29 Glucagon (Glucagon Inj) 1 mg UD PRN SQ 05/03/16 23:30 06/02/16 23:29 Tamsulosin HCl (Flomax Cap) 0.4 mg HS PO 05/04/16 21:00 06/03/16 20:59 05/08/16 20:56 0.4 MG Senna/Docusate Sodium 2 tab 2 tab BID PO 05/04/16 08:00 05/08/16 08:59 2 TAB Sodium Chloride (Nss 1000ml) 1,000 ml @ 80 mls/hr [id number] IV 05/05/16 14:00 06/04/16 13:59 05/09/16 13:33 80 MLS/HR Albuterol (Ventolin Hfa Inhaler) 2 puffs Q4H PRN INH 05/05/16 14:00 06/04/16 13:59 Sodium Biphosphate/ Sodium Phosphate (Fleet Enema) 132 ml DAILY PRN [place] 05/06/16 08:00 06/05/16 07:59 Insulin Glargine (Lantus Solostar Pen) 11 unit HS SC 05/09/16 21:00 06/08/16 20:59 Objective Vital Signs Date Time Temp Pulse Resp B/P Pulse Ox O2 Delivery O2 Flow Rate FiO2 05/09/16 15:30 36.7 76 20 108/65 93 Room Air 05/09/16 08:00 Room Air 05/09/16 07:58 36.2 85 16 148/72 90 Room Air 05/09/16 00:00 Room Air 05/08/16 21:37 164/92 05/08/16 17:45 71 177/87 Physical Exam General Appearance: no apparent distress Respiratory/Chest: lungs clear, normal breath sounds, no respiratory distress, no accessory muscle use Cardiovascular: regular rate, rhythm, no edema, no murmur Abdomen: normal bowel sounds, non tender, soft Extremities: normal inspection, no pedal edema Neurologic/Psychiatric: no motor/sensory deficits, alert, normal mood/affect Laboratory Results Last 24 Hours Test 05/08/16 20:19 05/09/16 06:52 05/09/16 08:11 05/09/16 08:24 Bedside Glucose 96 mg/dl 66 mg/dl 69 mg/dl White Blood Count 6.52 K/uL Red Blood Count 4.39 M/uL Hemoglobin 13.6 g/dL Hematocrit 39.1 % Mean Corpuscular Volume 89.1 fL Mean Corpuscular Hemoglobin 31.0 pg Mean Corpuscular Hemoglobin Concent 34.8 g/dl RDW Standard Deviation 46.2 fL RDW Coefficient of Variation 14.1 % Platelet Count 235 K/uL Mean Platelet Volume 9.3 fL Sodium Level 143 mmol/L Potassium Level 3.4 mmol/L Chloride Level 106 mmol/L Carbon Dioxide Level 29 mmol/L Anion Gap 8.0 mmol/L Blood Urea Nitrogen 17 mg/dl Creatinine 1.40 mg/dl Est Creatinine Clear Calc Drug Dose 42.0 ml/min Estimated GFR () 53.8 Estimated GFR (Non- 46.5 BUN/Creatinine Ratio 12.1 Random Glucose 63 mg/dl Calcium Level 8.5 mg/dl Test 05/09/16 09:02 05/09/16 11:18 05/09/16 16:20 Bedside Glucose 114 mg/dl 107 mg/dl 139 mg/dl Assessment and Plan Acute Kidney Injury superimposed on CKD stage 3 05/09 improved, creat down to 1.4 IVFs @ 80mL/hr monitor and stop IVFs in AM 05/08 creat down to 1.9 likely prerenal kidney injury continue IVFs and monitor for fluid overload encouraged PO intake 05/07 recheck of creat this morning shows 3.9 again will increase IVFs he is now eating dinner, which should improve seems prerenal in nature 05/06 significant jump in creat to 3.9 urine is dark and patient is not eating much will increase IVF rate to 100mL/hr and recheck creat in AM hold CAMERON-I and Lasix for now -due to dehydration , poor PO intake decreased urine out put , with mild elevation of cr form baseline ordered gentle IV fluid hold Lasix hold ACEI till cr returns to baseline Lower Abdominal Pain secondary to Urinary Retention 05/08 continue with the Zendejas will try voiding trial in a few days 05/07 Zendejas draining dark urine increase fluids continue Flomax will try to d/c Zendejas prior to discharge for voiding trial; if not, may require chronic Zendejas 05/06 Urinary retention is an issue continue catheter, may require chronic Zendejas symptom improved after Zendejas catheter insertion possible cause -BPH , chronic debilitating status , bed bound with advance dementia Detrol LA d/karlie UA negative for infection started on Flomax Voiding trial prior to discharge given multiple co morbidities pt may requiring chronic indwelling Zendejas CONSTIPATION Abdominal films demonstrate moderate-severe constipation. Bowel regimen as ordered. having bowel movement CHRONIC CHF Chronic left ventricular diastolic heart failure. currently dehydrated hold Lasix /ASEI ; gustabo hydration monitor vol status ATRIAL FIBRILLATION Rate controlled on metoprolol. Not a candidate for chronic anticoagulated, dementia /high fall risk. ASPIRATION PNEUMONIA Finish course of levofloxacin. cont Pureed diet with [place] thick liquid strict aspiration precaution will need assistance with each feeding HYPOXIA History of sleep apnea, but doesn't tolerate CPAP. May need nocturnal O2 at home. nocturnal pulse oximetry. DM TYPE II Hgb A1C 7.2 on 04/24/16. Hold sitagliptin-poor pO intake , lethargy Continue Lantus. NovoLog coverage as needed. VTE PROPHYLAXIS moderate to high risk SQ heparin. RESUSCITATION STATUS Discussed with daughter / POA. DNR. DISPOSITION lives at home with Daughter Saray Campa has 01/09 care through private pay Daughter wants pt to return home with home health Family Medicine follow-up with Dr. Boyer. PT/OT eval social service consulted for discharge planning .
[2016-05-09] MEDS: TAMSULOSIN HCL 0.4 MG CAP PO SCH (20:45)
[2016-05-09] MEDS ORDERED: INSULIN GLARGINE SOLOSTAR 100 UNITS/ML 3 ML PEN SC SCH (21:00)
[2016-05-10 00:05] VITALS: BP 164/91; PULSE 112; TEMP 36.6; O2SAT 92
[2016-05-10 07:23] LABS: HEMATOCRIT 37.4 % (42-52); MEAN CELL VOLUME 88.6 fL (80-100); MEAN CORPUSCULAR HEMOGLOBIN 31.3 pg (25-34); MEAN CORPUSCULAR HGB CONC 35.3 g/dl (32-36); MEAN PLATELET VOLUME 9.4 fL (7.4-10.4); PLATELET COUNT 257 K/uL (130-400); RED BLOOD COUNT 4.22 M/uL (4.7-6.1); WHITE BLOOD COUNT 8.58 K/uL (4.8-10.8)
--- NOTE | 2016-05-10 07:43 | DIAGNOSTIC IMAGING REPORT ---
CHEST ONE VIEW PORTABLE CLINICAL HISTORY: Evaluate for volume overload. COMPARISON STUDY: Chest radiograph May 06, 2016. 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 There is no pneumothorax. Interstitial thickening with perihilar and bibasilar opacities has progressed. There are small bilateral pleural effusions. Cardiomegaly is unchanged. There is no pneumothorax. IMPRESSION: 1. Progression of suspected pulmonary edema. An infectious process could appear similar but is considered less likely. 2. Small bilateral pleural effusions. Electronically signed by: Efren Oro M.D. 05/10/2016 7:42 AM Dictated Date/Time: 05/10/2016 7:41 AM
[2016-05-10 07:55] VITALS: BP 173/95; PULSE 112; TEMP 36.6; O2SAT 96
[2016-05-10 07:57] LABS: BUN/CREATININE RATIO 11.2 (10-20); CALCIUM 8.7 mg/dl (8.5-10.1); CREATININE 1.4 mg/dl (0.60-1.40); POTASSIUM 3.7 mmol/L (3.5-5.1)
[2016-05-10] MEDS: DOCUSATE SODIUM/SENNA 50/8.6MG TAB PO SCH ×2 (08:58→20:00)
[2016-05-10] MEDS: CHOLECALCIFEROL 1000 INTER.UNIT TAB PO SCH (08:58)
[2016-05-10] MEDS: INSULIN ASPART 100 UNITS/ML 3 ML PEN SQ SCH ×4 (09:06→20:06)
[2016-05-10] MEDS: CLOPIDOGREL BISULFATE 75 MG TAB PO SCH (09:11)
[2016-05-10] MEDS: ISOSORBIDE MONONITRATE 30 MG TABCR PO SCH (09:11)
[2016-05-10] MEDS: METOPROLOL SUCC 25MG EXT REL TAB PO SCH (09:11)
[2016-05-10] MEDS: LEVETIRACETAM 250 MG TAB PO SCH ×2 (09:11→20:01)
[2016-05-10] MEDS: ALLOPURINOL 100 MG TAB PO SCH (09:11)
[2016-05-10] MEDS: HEPARIN SOD 5000 UNIT/0.5 ML CARP SQ SCH ×2 (09:16→20:03)
[2016-05-10] MEDS ORDERED: FUROSEMIDE INJ 20 MG in SYRINGE 0 ML IV ONE (09:45)
[2016-05-10] MEDS ORDERED: HydrALAZINE HCL 20 MG/ML VIAL IV. ONE (09:45)
[2016-05-10] MEDS ORDERED: LEVETIRACETAM IV 250 MG in DEXTROSE 5% 100ML 100 ML IV ONE (10:00)
[2016-05-10 10:20] VITALS: BP 149/66; PULSE 105
[2016-05-10 11:43] VITALS: BP 137/62; PULSE 77; TEMP 36.3; O2SAT 94
[2016-05-10 15:00] VITALS: BP 110/63; PULSE 82; TEMP 36.3; O2SAT 98
--- NOTE | 2016-05-10 18:08 | Progress Note ---
Subjective Date of Service: May 10, 2016. Subjective Pt evaluation today including: physical exam, lab review, review of studies, review of inpatient medication list Saw/examined the patient in room 414 He is awake/arousable, but only nods to some questions difficult to obtain ROS As per nursing, had some choking episodes with breakfast, but doing better with lunch Problem List Medical Problems: (1) Acute renal failure Status: Acute (2) Altered mental status Status: Acute (3) Chest pain Status: Acute (4) Chronic renal disease Status: Acute (5) Constipation Status: Acute (6) Elevated troponin Status: Acute (7) Esophageal foreign body Status: Acute (8) Hypoxia Status: Acute (9) New onset a-fib Status: Acute (10) Pneumonia Status: Acute (11) Precordial chest pain Status: Acute (12) Urinary retention Status: Acute (13) UTI (urinary tract infection) Status: Acute (14) Weakness Status: Acute Medications Current Inpatient Medications Medications (Trade) Dose Ordered Sig/Mike Route Start Time Stop Time Status Last Admin Dose Admin Acetaminophen (Tylenol Tab) 650 mg Q4H PRN PO 05/03/16 22:00 06/02/16 21:59 Heparin Sodium (Porcine) (Heparin Sq 5000 Unit/0.5ml) 5,000 unit Q12 SQ 05/04/16 09:00 06/03/16 08:59 05/10/16 09:16 5,000 UNIT Allopurinol (Zyloprim Tab) 200 mg DAILY PO 05/04/16 08:00 06/03/16 08:59 05/09/16 08:23 200 MG Cholecalciferol (Vitamin D Tab) 2,000 inter.unit DAILY PO 05/04/16 08:00 06/03/16 08:59 05/09/16 08:24 2,000 INTER.UNIT Clopidogrel Bisulfate (plAVix TAB) 75 mg DAILY PO 05/04/16 08:00 06/03/16 08:59 05/09/16 08:23 75 MG Insulin Aspart (novoLOG ASPART) ACHS SQ 05/04/16 06:30 06/03/16 06:59 05/09/16 17:52 1 UNITS Isosorbide Mononitrate (Imdur Ext Rel Tab) 30 mg QAM PO 05/04/16 08:00 06/03/16 08:59 05/09/16 08:24 30 MG Levetiracetam (Keppra Tab) 250 mg BID PO 05/04/16 08:00 06/03/16 08:59 05/09/16 20:44 250 MG Lisinopril (Zestril Tab) 20 mg QAM PO 05/04/16 08:00 06/03/16 08:59 Future Hold 05/05/16 08:20 20 MG Metoprolol Succinate (Toprol Xl Tab) 25 mg DAILY PO 05/04/16 08:00 06/03/16 08:59 05/09/16 08:24 25 MG Nitroglycerin (Nitrostat Tab) 0.4 mg PRN UT 05/03/16 22:00 06/02/16 21:59 Glucose (Glucose 40% Gel) 15-30 GRAMS 15 GRAMS... UD PRN PO 05/03/16 23:30 06/02/16 23:29 05/09/16 08:21 15 GM Glucose (Glucose Chew Tab) 4-8 Tablets 4 Tabl... UD PRN PO 05/03/16 23:30 06/02/16 23:29 Dextrose (Dextrose 50% 50ML Syringe) 25-50ML OF 50% DW IV FOR... UD PRN IV 05/03/16 23:30 06/02/16 23:29 05/10/16 07:55 25 ML Glucagon (Glucagon Inj) 1 mg UD PRN SQ 05/03/16 23:30 06/02/16 23:29 Tamsulosin HCl (Flomax Cap) 0.4 mg HS PO 05/04/16 21:00 06/03/16 20:59 05/09/16 20:45 0.4 MG Senna/Docusate Sodium (Senokot S Tab) 2 tab BID PO 05/04/16 08:00 06/03/16 07:59 05/08/16 08:59 2 TAB Albuterol (Ventolin Hfa Inhaler) 2 puffs Q4H PRN INH 05/05/16 14:00 06/04/16 13:59 Sodium Biphosphate/ Sodium Phosphate (Fleet Enema) 132 ml DAILY PRN [place] 05/06/16 08:00 06/05/16 07:59 Insulin Glargine (Lantus Solostar Pen) 5 unit HS SC 05/10/16 21:00 06/09/16 20:59 Objective Vital Signs Date Time Temp Pulse Resp B/P Pulse Ox O2 Delivery O2 Flow Rate FiO2 05/10/16 16:00 Room Air 05/10/16 15:00 36.3 82 22 110/63 98 Room Air 05/10/16 11:43 36.3 77 22 137/62 94 05/10/16 10:20 105 149/66 05/10/16 08:00 Room Air 05/10/16 07:55 36.6 112 20 173/95 96 Room Air 05/10/16 01:00 Room Air 05/10/16 00:05 36.6 112 20 164/91 92 Room Air Physical Exam General Appearance: + pertinent finding (somnolent; obtunded) Respiratory/Chest: no respiratory distress, no accessory muscle use Cardiovascular: regular rate, rhythm, no edema, no murmur Abdomen: + pertinent finding (+Zendejas) Extremities: normal inspection, no pedal edema Laboratory Results Last 24 Hours Test 05/09/16 20:03 05/10/16 07:00 05/10/16 07:41 05/10/16 08:19 Bedside Glucose 150 mg/dl 68 mg/dl 112 mg/dl White Blood Count 8.58 K/uL Red Blood Count 4.22 M/uL Hemoglobin 13.2 g/dL Hematocrit 37.4 % Mean Corpuscular Volume 88.6 fL Mean Corpuscular Hemoglobin 31.3 pg Mean Corpuscular Hemoglobin Concent 35.3 g/dl RDW Standard Deviation 46.0 fL RDW Coefficient of Variation 14.1 % Platelet Count 257 K/uL Mean Platelet Volume 9.4 fL Sodium Level 143 mmol/L Potassium Level 3.7 mmol/L Chloride Level 106 mmol/L Carbon Dioxide Level 29 mmol/L Anion Gap 8.0 mmol/L Blood Urea Nitrogen 16 mg/dl Creatinine 1.40 mg/dl Est Creatinine Clear Calc Drug Dose 42.0 ml/min Estimated GFR () 53.8 Estimated GFR (Non- 46.5 BUN/Creatinine Ratio 11.2 Random Glucose 65 mg/dl Calcium Level 8.7 mg/dl Chemistry Specimen Hemolysis Test 05/10/16 11:20 05/10/16 16:28 Bedside Glucose 89 mg/dl 133 mg/dl Assessment and Plan Acute Kidney Injury superimposed on CKD stage 3 4/1 creat at 1.4 patient sounded as if he was getting fluid overloaded today stopped IVFs given one dose of IV Lasix 05/09 improved, creat down to 1.4 IVFs @ 80mL/hr monitor and stop IVFs in AM 05/08 creat down to 1.9 likely prerenal kidney injury continue IVFs and monitor for fluid overload encouraged PO intake 05/07 recheck of creat this morning shows 3.9 again will increase IVFs he is now eating dinner, which should improve seems prerenal in nature 05/06 significant jump in creat to 3.9 urine is dark and patient is not eating much will increase IVF rate to 100mL/hr and recheck creat in AM hold CAMERON-I and Lasix for now -due to dehydration , poor PO intake decreased urine out put , with mild elevation of cr form baseline ordered gentle IV fluid hold Lasix hold ACEI till cr returns to baseline Lower Abdominal Pain secondary to Urinary Retention 05/08 continue with the Zendejas will try voiding trial in a few days 05/07 Zendejas draining dark urine increase fluids continue Flomax will try to d/c Zendejas prior to discharge for voiding trial; if not, may require chronic Zendejas 05/06 Urinary retention is an issue continue catheter, may require chronic Zendejas symptom improved after Zendejas catheter insertion possible cause -BPH , chronic debilitating status , bed bound with advance dementia Detrol LA d/karlie UA negative for infection started on Flomax Voiding trial prior to discharge given multiple co morbidities pt may requiring chronic indwelling Zendejas CONSTIPATION Abdominal films demonstrate moderate-severe constipation. Bowel regimen as ordered. having bowel movement CHRONIC CHF Chronic left ventricular diastolic heart failure. currently dehydrated hold Lasix /ASEI ; gustabo hydration monitor vol status ATRIAL FIBRILLATION Rate controlled on metoprolol. Not a candidate for chronic anticoagulated, dementia /high fall risk. ASPIRATION PNEUMONIA Finish course of levofloxacin. cont Pureed diet with [place] thick liquid strict aspiration precaution will need assistance with each feeding HYPOXIA History of sleep apnea, but doesn't tolerate CPAP. May need nocturnal O2 at home. nocturnal pulse oximetry. DM TYPE II Hgb A1C 7.2 on 04/24/16. Hold sitagliptin-poor pO intake , lethargy Continue Lantus. NovoLog coverage as needed. VTE PROPHYLAXIS moderate to high risk SQ heparin. RESUSCITATION STATUS Discussed with daughter / POA. DNR. DISPOSITION lives at home with Daughter Saray Campa has 24/7 care through private pay Daughter wants pt to return home with home health Family Medicine follow-up with Dr. Boyer. PT/OT [facility] social service consulted for discharge planning .
[2016-05-10] MEDS: TAMSULOSIN HCL 0.4 MG CAP PO SCH (20:01)
[2016-05-10] MEDS: INSULIN GLARGINE SOLOSTAR 100 UNITS/ML 3 ML PEN SC SCH (20:06)
[2016-05-10 23:33] VITALS: BP 156/85; PULSE 108; TEMP 36.6; O2SAT 97
[2016-05-11 06:47] LABS: HEMATOCRIT 38.7 % (42-52); MEAN CELL VOLUME 89.4 fL (80-100); MEAN CORPUSCULAR HEMOGLOBIN 30.7 pg (25-34); MEAN CORPUSCULAR HGB CONC 34.4 g/dl (32-36); MEAN PLATELET VOLUME 9.6 fL (7.4-10.4); PLATELET COUNT 256 K/uL (130-400); RED BLOOD COUNT 4.33 M/uL (4.7-6.1); WHITE BLOOD COUNT 6.42 K/uL (4.8-10.8)
[2016-05-11 07:09] VITALS: BP 122/75; PULSE 70; TEMP 36.3; O2SAT 97
[2016-05-11 07:13] LABS: BUN/CREATININE RATIO 11.4 (10-20); CALCIUM 8.7 mg/dl (8.5-10.1); CREATININE 1.5 mg/dl (0.60-1.40); POTASSIUM 3.3 mmol/L (3.5-5.1)
--- NOTE | 2016-05-11 07:48 | DIAGNOSTIC IMAGING REPORT ---
CHEST ONE VIEW PORTABLE CLINICAL HISTORY: aspiration COMPARISON STUDY: 05/10/2016 FINDINGS: The cardiac and mediastinal contours remain stable. There is a left subclavian dual-chamber central venous pacemaker present. A subpulmonic right pleural effusion is suspected. A small left pleural effusion is also suspected. There is improving asymmetric pulmonary edema pattern.[ IMPRESSION: Improving asymmetric pulmonary edema pattern. Electronically signed by: Julius Vasquez M.D. 05/11/2016 7:47 AM Dictated Date/Time: 05/11/2016 7:46 AM
[2016-05-11] MEDS: CHOLECALCIFEROL 1000 INTER.UNIT TAB PO SCH (08:00)
[2016-05-11] MEDS: DOCUSATE SODIUM/SENNA 50/8.6MG TAB PO SCH ×2 (08:20→20:06)
[2016-05-11] MEDS: CLOPIDOGREL BISULFATE 75 MG TAB PO SCH (08:20)
[2016-05-11] MEDS: LEVETIRACETAM 250 MG TAB PO SCH ×2 (08:20→20:07)
[2016-05-11] MEDS: ALLOPURINOL 100 MG TAB PO SCH (08:22)
[2016-05-11] MEDS: ISOSORBIDE MONONITRATE 30 MG TABCR PO SCH (08:25)
[2016-05-11] MEDS: METOPROLOL SUCC 25MG EXT REL TAB PO SCH (08:26)
[2016-05-11] MEDS: INSULIN ASPART 100 UNITS/ML 3 ML PEN SQ SCH ×4 (08:35→21:00)
[2016-05-11] MEDS: HEPARIN SOD 5000 UNIT/0.5 ML CARP SQ SCH ×2 (08:37→20:08)
[2016-05-11 14:58] VITALS: BP 102/61; PULSE 78; TEMP 36.3; O2SAT 96
--- NOTE | 2016-05-11 15:03 | Progress Note ---
Subjective Date of Service: May 11, 2016. Subjective Pt evaluation today including: conversation w/ patient, physical exam, lab review, review of studies, review of inpatient medication list Saw/examined the patient in room 414 He is lethargic, sleepy - grunts and nods occasionally As per friend and daughter, this is at his baseline; he does this at home and mentally he is back to baseline +choking occasionally with thin liquids and even nectar thick liquids as per nursing, so advanced to pudding thick and doing better Problem List Medical Problems: (1) Acute renal failure Status: Acute (2) Altered mental status Status: Acute (3) Chest pain Status: Acute (4) Chronic renal disease Status: Acute (5) Constipation Status: Acute (6) Elevated troponin Status: Acute (7) Esophageal foreign body Status: Acute (8) Hypoxia Status: Acute (9) New onset a-fib Status: Acute (10) Pneumonia Status: Acute (11) Precordial chest pain Status: Acute (12) Urinary retention Status: Acute (13) UTI (urinary tract infection) Status: Acute (14) Weakness Status: Acute Review of Systems Cannot obtain due to mental status Medications Current Inpatient Medications Medications (Trade) Dose Ordered Sig/Mike Route Start Time Stop Time Status Last Admin Dose Admin Acetaminophen (Tylenol Tab) 650 mg Q4H PRN PO 05/03/16 22:00 06/02/16 21:59 Heparin Sodium (Porcine) (Heparin Sq 5000 Unit/0.5ml) 5,000 unit Q12 SQ 05/04/16 09:00 06/03/16 08:59 05/11/16 08:37 5,000 UNIT Allopurinol (Zyloprim Tab) 200 mg DAILY PO 05/04/16 08:00 06/03/16 08:59 05/11/16 08:22 200 MG Cholecalciferol (Vitamin D Tab) 2,000 inter.unit DAILY PO 05/04/16 08:00 06/03/16 08:59 05/09/16 08:24 2,000 INTER.UNIT Clopidogrel Bisulfate (plAVix TAB) 75 mg DAILY PO 05/04/16 08:00 06/03/16 08:59 05/11/16 08:20 75 MG Insulin Aspart (novoLOG ASPART) ACHS SQ 05/04/16 06:30 06/03/16 06:59 05/11/16 12:57 1 UNITS Isosorbide Mononitrate (Imdur Ext Rel Tab) 30 mg QAM PO 05/04/16 08:00 06/03/16 08:59 05/11/16 08:25 30 MG Levetiracetam (Keppra Tab) 250 mg BID PO 05/04/16 08:00 06/03/16 08:59 05/11/16 08:20 250 MG Lisinopril (Zestril Tab) 20 mg QAM PO 05/04/16 08:00 06/03/16 08:59 Future Hold 05/05/16 08:20 20 MG Metoprolol Succinate (Toprol Xl Tab) 25 mg DAILY PO 05/04/16 08:00 06/03/16 08:59 05/11/16 08:26 25 MG Nitroglycerin (Nitrostat Tab) 0.4 mg PRN [place] 05/03/16 22:00 06/02/16 21:59 Glucose (Glucose 40% Gel) 15-30 GRAMS 15 GRAMS... UD PRN PO 05/03/16 23:30 06/02/16 23:29 05/09/16 08:21 15 GM Glucose (Glucose Chew Tab) 4-8 Tablets 4 Tabl... UD PRN PO 05/03/16 23:30 06/02/16 23:29 Dextrose (Dextrose 50% 50ML Syringe) 25-50ML OF 50% DW IV FOR... UD PRN IV 05/03/16 23:30 06/02/16 23:29 05/10/16 07:55 25 ML Glucagon (Glucagon Inj) 1 mg UD PRN SQ 05/03/16 23:30 06/02/16 23:29 Tamsulosin HCl (Flomax Cap) 0.4 mg HS PO 05/04/16 21:00 06/03/16 20:59 05/10/16 20:01 0.4 MG Senna/Docusate Sodium (Senokot S Tab) 2 tab BID PO 05/04/16 08:00 06/03/16 07:59 05/11/16 08:20 2 TAB Albuterol (Ventolin Hfa Inhaler) 2 puffs Q4H PRN INH 05/05/16 14:00 06/04/16 13:59 Sodium Biphosphate/ Sodium Phosphate (Fleet Enema) 132 ml DAILY PRN [place] 05/06/16 08:00 06/05/16 07:59 Insulin Glargine (Lantus Solostar Pen) 5 unit HS SC 05/10/16 21:00 06/09/16 20:59 05/10/16 20:06 5 UNIT Objective Vital Signs Date Time Temp Pulse Resp B/P Pulse Ox O2 Delivery O2 Flow Rate FiO2 05/11/16 14:58 36.3 78 20 102/61 96 05/11/16 08:00 Room Air 05/11/16 07:09 36.3 70 18 122/75 97 Room Air 05/11/16 00:15 Room Air 05/10/16 23:33 36.6 108 18 156/85 97 Room Air 05/10/16 20:40 Room Air 05/10/16 16:00 Room Air 05/10/16 15:00 36.3 82 22 110/63 98 Room Air Physical Exam General Appearance: + pertinent finding (somnolent) Respiratory/Chest: no respiratory distress, no accessory muscle use, + decreased breath sounds Cardiovascular: regular rate, rhythm, no edema, no murmur Abdomen: normal bowel sounds, non tender, soft Extremities: normal inspection, no pedal edema, + pertinent finding (+Zendejas) Laboratory Results Last 24 Hours Test 05/10/16 16:28 05/10/16 20:03 05/11/16 05:55 05/11/16 07:31 Bedside Glucose 133 mg/dl 133 mg/dl 88 mg/dl White Blood Count 6.42 K/uL Red Blood Count 4.33 M/uL Hemoglobin 13.3 g/dL Hematocrit 38.7 % Mean Corpuscular Volume 89.4 fL Mean Corpuscular Hemoglobin 30.7 pg Mean Corpuscular Hemoglobin Concent 34.4 g/dl RDW Standard Deviation 47.2 fL RDW Coefficient of Variation 14.3 % Platelet Count 256 K/uL Mean Platelet Volume 9.6 fL Sodium Level 142 mmol/L Potassium Level 3.3 mmol/L Chloride Level 105 mmol/L Carbon Dioxide Level 31 mmol/L Anion Gap 6.0 mmol/L Blood Urea Nitrogen 17 mg/dl Creatinine 1.50 mg/dl Est Creatinine Clear Calc Drug Dose 39.2 ml/min Estimated GFR () 49.5 Estimated GFR (Non- 42.7 BUN/Creatinine Ratio 11.4 Random Glucose 84 mg/dl Calcium Level 8.7 mg/dl Test 05/11/16 11:20 Bedside Glucose 115 mg/dl Assessment and Plan Acute Kidney Injury superimposed on CKD stage 3 05/11 creat up to 1.5 stopped IVFs stop all diuretics monitor how he does with his regular PO intake 05/10 creat at 1.4 patient sounded as if he was getting fluid overloaded today stopped IVFs given one dose of IV Lasix 05/09 improved, creat down to 1.4 IVFs @ 80mL/hr monitor and stop IVFs in AM 05/08 creat down to 1.9 likely prerenal kidney injury continue IVFs and monitor for fluid overload encouraged PO intake 05/07 recheck of creat this morning shows 3.9 again will increase IVFs he is now eating dinner, which should improve seems prerenal in nature 05/06 significant jump in creat to 3.9 urine is dark and patient is not eating much will increase IVF rate to 100mL/hr and recheck creat in AM hold CAMERON-I and Lasix for now -due to dehydration , poor PO intake decreased urine out put , with mild elevation of cr form baseline ordered gentle IV fluid hold Lasix hold ACEI till cr returns to baseline Lower Abdominal Pain secondary to Urinary Retention 05/11 plan to remove Zendejas on 05/12 and voiding trial with Flomax 05/08 continue with the Zendejas will try voiding trial in a few days 05/07 Zendejas draining dark urine increase fluids continue Flomax will try to d/c Zendejas prior to discharge for voiding trial; if not, may require chronic Zendejas 05/06 Urinary retention is an issue continue catheter, may require chronic Zendejas symptom improved after Zendejas catheter insertion possible cause -BPH , chronic debilitating status , bed bound with advance dementia Detrol LA d/karlie UA negative for infection started on Flomax Voiding trial prior to discharge given multiple co morbidities pt may requiring chronic indwelling Zendejas CONSTIPATION Abdominal films demonstrate moderate-severe constipation. Bowel regimen as ordered. having bowel movement CHRONIC CHF Chronic left ventricular diastolic heart failure. currently dehydrated hold Lasix /ASEI ; gustabo hydration monitor vol status ATRIAL FIBRILLATION Rate controlled on metoprolol. Not a candidate for chronic anticoagulated, dementia /high fall risk. ASPIRATION PNEUMONIA Finish course of levofloxacin. cont Pureed diet with [place] thick liquid strict aspiration precaution will need assistance with each feeding HYPOXIA History of sleep apnea, but doesn't tolerate CPAP. May need nocturnal O2 at home. nocturnal pulse oximetry. DM TYPE II Hgb A1C 7.2 on 04/24/16. Hold sitagliptin-poor pO intake , lethargy Continue Lantus. NovoLog coverage as needed. VTE PROPHYLAXIS moderate to high risk SQ heparin. RESUSCITATION STATUS Discussed with daughter / POA. DNR. DISPOSITION lives at home with Daughter Saray Campa has 01/09 care through private pay Daughter wants pt to return home with home health Family Medicine follow-up with Dr. Boyer. PT/OT eval social service consulted for discharge planning .
[2016-05-11] MEDS ORDERED: POTASSIUM CHLORIDE PWD 20 MEQ PACK PO ONE (15:30)
[2016-05-11] MEDS ORDERED: SODIUM CHLORIDE 0.9% 1000ML 1,000 ML IV SCH (18:30)
[2016-05-11] MEDS: TAMSULOSIN HCL 0.4 MG CAP PO SCH (20:06)
[2016-05-11] MEDS: INSULIN GLARGINE SOLOSTAR 100 UNITS/ML 3 ML PEN SC SCH (21:28)
[2016-05-12 00:16] VITALS: BP 129/73; PULSE 67; TEMP 36.9; O2SAT 94
[2016-05-12 05:55] LABS: HEMATOCRIT 39.8 % (42-52); MEAN CELL VOLUME 91.9 fL (80-100); MEAN CORPUSCULAR HEMOGLOBIN 30.9 pg (25-34); MEAN CORPUSCULAR HGB CONC 33.7 g/dl (32-36); MEAN PLATELET VOLUME 9.7 fL (7.4-10.4); PLATELET COUNT 238 K/uL (130-400); RED BLOOD COUNT 4.33 M/uL (4.7-6.1); WHITE BLOOD COUNT 6.12 K/uL (4.8-10.8)
[2016-05-12 06:24] LABS: BUN/CREATININE RATIO 11.9 (10-20); CALCIUM 8.5 mg/dl (8.5-10.1); CREATININE 1.6 mg/dl (0.60-1.40); POTASSIUM 3.6 mmol/L (3.5-5.1)
[2016-05-12 07:39] VITALS: BP 152/75; PULSE 72; TEMP 36.4; O2SAT 95
[2016-05-12] MEDS: INSULIN ASPART 100 UNITS/ML 3 ML PEN SQ SCH ×4 (08:54→21:00)
[2016-05-12] MEDS: ISOSORBIDE MONONITRATE 30 MG TABCR PO SCH (08:55)
[2016-05-12] MEDS: CLOPIDOGREL BISULFATE 75 MG TAB PO SCH (08:56)
[2016-05-12] MEDS: LEVETIRACETAM 250 MG TAB PO SCH ×2 (08:56→21:59)
[2016-05-12] MEDS: DOCUSATE SODIUM/SENNA 50/8.6MG TAB PO SCH ×2 (08:57→21:59)
[2016-05-12] MEDS: METOPROLOL SUCC 25MG EXT REL TAB PO SCH (08:58)
[2016-05-12] MEDS: CHOLECALCIFEROL 1000 INTER.UNIT TAB PO SCH (08:59)
[2016-05-12] MEDS: ALLOPURINOL 100 MG TAB PO SCH (09:00)
[2016-05-12] MEDS: HEPARIN SOD 5000 UNIT/0.5 ML CARP SQ SCH ×2 (09:11→22:17)
[2016-05-12 09:50] VITALS: BP 152/75; PULSE 72; O2SAT 95
[2016-05-12 15:13] VITALS: BP 125/81; PULSE 76; TEMP 37.2; O2SAT 98
--- NOTE | 2016-05-12 15:41 | Progress Note ---
Subjective Date of Service: May 12, 2016. Subjective Pt evaluation today including: conversation w/ patient, physical exam, lab review, review of studies, conversation w/ farm consultant (speech therapy), review of inpatient medication list Saw/examined the patient in room 414 He's awake/alert and appropriately replying to me still tired/somnolent but arousable +aspiration at all times according to speech therapy Problem List Medical Problems: (1) Acute renal failure Status: Acute (2) Altered mental status Status: Acute (3) Chest pain Status: Acute (4) Chronic renal disease Status: Acute (5) Constipation Status: Acute (6) Elevated troponin Status: Acute (7) Esophageal foreign body Status: Acute (8) Hypoxia Status: Acute (9) New onset a-fib Status: Acute (10) Pneumonia Status: Acute (11) Precordial chest pain Status: Acute (12) Urinary retention Status: Acute (13) UTI (urinary tract infection) Status: Acute (14) Weakness Status: Acute Review of Systems Respiratory: No cough, No shortness of breath, No sputum Cardiac: No chest pain difficult to obtain due to patient's mental status Medications Current Inpatient Medications Medications (Trade) Dose Ordered Sig/Mike Route Start Time Stop Time Status Last Admin Dose Admin Acetaminophen (Tylenol Tab) 650 mg Q4H PRN PO 05/03/16 22:00 06/02/16 21:59 Heparin Sodium (Porcine) (Heparin Sq 5000 Unit/0.5ml) 5,000 unit Q12 SQ 05/04/16 09:00 06/03/16 08:59 05/12/16 09:11 5,000 UNIT Allopurinol (Zyloprim Tab) 200 mg DAILY PO 05/04/16 08:00 06/03/16 08:59 05/12/16 09:00 200 MG Cholecalciferol (Vitamin D Tab) 2,000 inter.unit DAILY PO 05/04/16 08:00 06/03/16 08:59 05/12/16 08:59 2,000 INTER.UNIT Clopidogrel Bisulfate (plAVix TAB) 75 mg DAILY PO 05/04/16 08:00 06/03/16 08:59 05/12/16 08:56 75 MG Insulin Aspart (novoLOG ASPART) ACHS SQ 05/04/16 06:30 06/03/16 06:59 05/11/16 18:16 2 UNITS Isosorbide Mononitrate (Imdur Ext Rel Tab) 30 mg QAM PO 05/04/16 08:00 06/03/16 08:59 05/12/16 08:55 30 MG Levetiracetam (Keppra Tab) 250 mg BID PO 05/04/16 08:00 06/03/16 08:59 05/12/16 08:56 250 MG Lisinopril (Zestril Tab) 20 mg QAM PO 05/04/16 08:00 06/03/16 08:59 Future Hold 05/05/16 08:20 20 MG Metoprolol Succinate (Toprol Xl Tab) 25 mg DAILY PO 05/04/16 08:00 06/03/16 08:59 05/12/16 08:58 25 MG Nitroglycerin (Nitrostat Tab) 0.4 mg PRN UT 05/03/16 22:00 06/02/16 21:59 Glucose (Glucose 40% Gel) 15-30 GRAMS 15 GRAMS... UD PRN PO 05/03/16 23:30 06/02/16 23:29 05/09/16 08:21 15 GM Glucose (Glucose Chew Tab) 4-8 Tablets 4 Tabl... UD PRN PO 05/03/16 23:30 06/02/16 23:29 Dextrose (Dextrose 50% 50ML Syringe) 25-50ML OF 50% DW IV FOR... UD PRN IV 05/03/16 23:30 06/02/16 23:29 05/10/16 07:55 25 ML Glucagon (Glucagon Inj) 1 mg UD PRN SQ 05/03/16 23:30 06/02/16 23:29 Tamsulosin HCl (Flomax Cap) 0.4 mg HS PO 05/04/16 21:00 06/03/16 20:59 05/11/16 20:06 0.4 MG Senna/Docusate Sodium (Senokot S Tab) 2 tab BID PO 05/04/16 08:00 06/03/16 07:59 05/12/16 08:57 2 TAB Albuterol (Ventolin Hfa Inhaler) 2 puffs Q4H PRN INH 05/05/16 14:00 06/04/16 13:59 Sodium Biphosphate/ Sodium Phosphate (Fleet Enema) 132 ml DAILY PRN [place] 05/06/16 08:00 06/05/16 07:59 Insulin Glargine (Lantus Solostar Pen) 5 unit HS SC 05/10/16 21:00 06/09/16 20:59 05/11/16 21:28 5 UNIT Objective Vital Signs Date Time Temp Pulse Resp B/P Pulse Ox O2 Delivery O2 Flow Rate FiO2 05/12/16 15:13 37.2 76 20 125/81 98 Room Air 05/12/16 09:50 72 95 05/12/16 08:00 Room Air 05/12/16 07:39 36.4 72 20 152/75 95 05/12/16 01:30 Room Air 05/12/16 00:16 36.9 67 20 129/73 94 Room Air 05/11/16 22:00 Room Air 05/11/16 16:00 Room Air Physical Exam General Appearance: no apparent distress, + pertinent finding (+lethargy/ somnolent but arousable) Respiratory/Chest: lungs clear, normal breath sounds, no respiratory distress, no accessory muscle use Cardiovascular: regular rate, rhythm, no edema Laboratory Results Last 24 Hours Test 05/11/16 16:22 05/11/16 20:22 05/12/16 05:30 05/12/16 07:54 Bedside Glucose 173 mg/dl 131 mg/dl 76 mg/dl White Blood Count 6.12 K/uL Red Blood Count 4.33 M/uL Hemoglobin 13.4 g/dL Hematocrit 39.8 % Mean Corpuscular Volume 91.9 fL Mean Corpuscular Hemoglobin 30.9 pg Mean Corpuscular Hemoglobin Concent 33.7 g/dl RDW Standard Deviation 48.2 fL RDW Coefficient of Variation 14.3 % Platelet Count 238 K/uL Mean Platelet Volume 9.7 fL Sodium Level 143 mmol/L Potassium Level 3.6 mmol/L Chloride Level 106 mmol/L Carbon Dioxide Level 30 mmol/L Anion Gap 7.0 mmol/L Blood Urea Nitrogen 19 mg/dl Creatinine 1.60 mg/dl Est Creatinine Clear Calc Drug Dose 36.8 ml/min Estimated GFR () 45.8 Estimated GFR (Non- 39.5 BUN/Creatinine Ratio 11.9 Random Glucose 96 mg/dl Calcium Level 8.5 mg/dl Test 05/12/16 11:38 Bedside Glucose 102 mg/dl Assessment and Plan Dysphagia/Aspiration patient with aspiration with any types of consistency appreciate speech evaluation will need to discuss with daughter regarding palliative care Acute Kidney Injury superimposed on CKD stage 3 05/12 creatinine is 1.6 today hold off on IVFs at this time stop diuretic use concentrated urine and decreased urine production will hold off on voiding trial 05/11 creat up to 1.5 stopped IVFs stop all diuretics monitor how he does with his regular PO intake 05/10 creat at 1.4 patient sounded as if he was getting fluid overloaded today stopped IVFs given one dose of IV Lasix 05/09 improved, creat down to 1.4 IVFs @ 80mL/hr monitor and stop IVFs in AM 05/08 creat down to 1.9 likely prerenal kidney injury continue IVFs and monitor for fluid overload encouraged PO intake 05/07 recheck of creat this morning shows 3.9 again will increase IVFs he is now eating dinner, which should improve seems prerenal in nature 05/06 significant jump in creat to 3.9 urine is dark and patient is not eating much will increase IVF rate to 100mL/hr and recheck creat in AM hold CAMERON-I and Lasix for now -due to dehydration , poor PO intake decreased urine out put , with mild elevation of cr form baseline ordered gentle IV fluid hold Lasix hold ACEI till cr returns to baseline Lower Abdominal Pain secondary to Urinary Retention 05/11 plan to remove Zendejas on 05/12 and voiding trial with Flomax 05/08 continue with the Zendejas will try voiding trial in a few days 05/07 Zendejas draining dark urine increase fluids continue Flomax will try to d/c Zendejas prior to discharge for voiding trial; if not, may require chronic Zendejas 05/06 Urinary retention is an issue continue catheter, may require chronic Zendejas symptom improved after Zendejas catheter insertion possible cause -BPH , chronic debilitating status , bed bound with advance dementia Detrol LA d/karlie UA negative for infection started on Flomax Voiding trial prior to discharge given multiple co morbidities pt may requiring chronic indwelling Zendejas CONSTIPATION Abdominal films demonstrate moderate-severe constipation. Bowel regimen as ordered. having bowel movement CHRONIC CHF Chronic left ventricular diastolic heart failure. currently dehydrated hold Lasix /ASEI ; gustabo hydration monitor vol status ATRIAL FIBRILLATION Rate controlled on metoprolol. Not a candidate for chronic anticoagulated, dementia /high fall risk. DM TYPE II Hgb A1C 7.2 on 04/24/16. Hold sitagliptin-poor pO intake , lethargy Continue Lantus. NovoLog coverage as needed. VTE PROPHYLAXIS moderate to high risk SQ heparin. RESUSCITATION STATUS Discussed with daughter / POA. DNR. DISPOSITION lives at home with Daughter Saray Campa has 24/7 care through private pay Daughter wants pt to return home with home health Family Medicine follow-up with Dr. Boyer. PT/OT eval social service consulted for discharge planning .
[2016-05-12] MEDS: TAMSULOSIN HCL 0.4 MG CAP PO SCH (21:58)
[2016-05-12] MEDS: INSULIN GLARGINE SOLOSTAR 100 UNITS/ML 3 ML PEN SC SCH (22:16)
[2016-05-13 00:09] VITALS: BP 158/71; PULSE 85; TEMP 36.7; O2SAT 93
[2016-05-13 06:42] LABS: HEMATOCRIT 39.4 % (42-52); MEAN CELL VOLUME 90.8 fL (80-100); MEAN CORPUSCULAR HEMOGLOBIN 31.1 pg (25-34); MEAN CORPUSCULAR HGB CONC 34.3 g/dl (32-36); MEAN PLATELET VOLUME 9.6 fL (7.4-10.4); PLATELET COUNT 248 K/uL (130-400); RED BLOOD COUNT 4.34 M/uL (4.7-6.1); WHITE BLOOD COUNT 6.58 K/uL (4.8-10.8)
[2016-05-13 07:13] LABS: BUN/CREATININE RATIO 13.3 (10-20); CALCIUM 8.5 mg/dl (8.5-10.1); CREATININE 1.3 mg/dl (0.60-1.40); POTASSIUM 3.4 mmol/L (3.5-5.1)
[2016-05-13 08:50] VITALS: BP 121/84; PULSE 86; TEMP 36.3; O2SAT 94
[2016-05-13] MEDS: INSULIN ASPART 100 UNITS/ML 3 ML PEN SQ SCH ×4 (09:10→21:00)
[2016-05-13] MEDS: ISOSORBIDE MONONITRATE 30 MG TABCR PO SCH (09:34)
[2016-05-13] MEDS: CHOLECALCIFEROL 1000 INTER.UNIT TAB PO SCH (09:35)
[2016-05-13] MEDS: ALLOPURINOL 100 MG TAB PO SCH (09:35)
[2016-05-13] MEDS: CLOPIDOGREL BISULFATE 75 MG TAB PO SCH (09:35)
[2016-05-13] MEDS: METOPROLOL SUCC 25MG EXT REL TAB PO SCH (09:35)
[2016-05-13] MEDS: DOCUSATE SODIUM/SENNA 50/8.6MG TAB PO SCH ×2 (09:35→19:19)
[2016-05-13] MEDS: LEVETIRACETAM 250 MG TAB PO SCH ×3 (09:36→19:18)
[2016-05-13] MEDS: HEPARIN SOD 5000 UNIT/0.5 ML CARP SQ SCH ×2 (10:28→19:19)
--- NOTE | 2016-05-13 15:36 | Palliative Care Consultation ---
Consultation Date of Consultation: May 13, 2016. Requesting Physician: Dr. Workman Attending Physician: Dr. Workman Reason for Consultation: Goals of care History of Present Illness This 80 year old male patient presented to the ED 10 days ago with c/o abdominal pain. Patient was here in the hospital on 04/23 with aspiration pneumonia, discharged home with daughter and [id number] caregivers. The patient is a poor history with his advanced dementia, history obtained from record. Apparently he was doing okay at home after being in the hospital until he developed this abdominal pain-- patient could not be specific about the pain. A Zendejas catheter was placed and immediately drained 600ml. Chest/abd XRay showed cardiomegaly with evidene of congestive failure and interstitial edema, and layering pleural effusions with bibasilar consolidation-- likely atelectasis or pneumonia, non-obstructive abdominal bowel gas pattern- moderate to severe constipation. SpO2 in ED noted to be 87% while sleeping. Patient admitted and started on abx and bowel regimen-- has since had BM. He was seen by speech therapist and it was determined that he is aspirating basically everything. He is very weak and unable to get OOB; other comorbidities listed below. Palliative care consulted to establish goals of care. I met with the patient in room 414. He is oriented to person and place, not time or event. Poor historian, but did deny any pain or discomfort at the time. He stated he wanted to go home and was tired of being in the hospital. We talked about the aspiration and patient stated he wanted to keep eating and would never want a feeding tube. He really could not provide any further goals of care conversation, he asked me to call his daughter. Call out to [facility], waiting call back. See plan below. Past Medical/Surgical History Medical History: Ischemic heart disease Afib CHF DM BPH Dementia ASCVD PVD Seizure Diabetic polyneuropathy CVA Solitary kidney Surgical History: Amputated finger Spinal surgery Vasectomy Pacemaker Social History Smoking Status: Former Smoker History of Alcohol Use: No Drug Use: none Marital Status: Housing Status: lives with family Occupation Status: retired Review of Systems Constitutional: + weakness ENT: + trouble swallowing Respiratory: No cough, No shortness of breath Cardiac: No chest pain Abdomen: No nausea, No pain, No vomiting limited ROS due to patient's dementia Allergies Coded Allergies: Simvastatin (Verified Allergy, Mild, rash, 05/03/16) per gmg Atorvastatin (Verified Adverse Reaction, Mild, MUSCLE WEAKNESS, 05/03/16) Phenytoin (Verified Adverse Reaction, Unknown, Weak legs., 05/03/16) Source-[facility] Medications Current Inpatient Medications Medications (Trade) Dose Ordered Sig/Mike Route Start Time Stop Time Status Last Admin Dose Admin Acetaminophen (Tylenol Tab) 650 mg Q4H PRN PO 05/03/16 22:00 06/02/16 21:59 Heparin Sodium (Porcine) (Heparin Sq 5000 Unit/0.5ml) 5,000 unit Q12 SQ 05/04/16 09:00 06/03/16 08:59 05/12/16 22:17 5,000 UNIT Allopurinol (Zyloprim Tab) 200 mg DAILY PO 05/04/16 08:00 06/03/16 08:59 05/12/16 09:00 200 MG Cholecalciferol (Vitamin D Tab) 2,000 inter.unit DAILY PO 05/04/16 08:00 06/03/16 08:59 05/12/16 08:59 2,000 INTER.UNIT Clopidogrel Bisulfate (plAVix TAB) 75 mg DAILY PO 05/04/16 08:00 06/03/16 08:59 05/12/16 08:56 75 MG Insulin Aspart (novoLOG ASPART) ACHS SQ 05/04/16 06:30 06/03/16 06:59 05/11/16 18:16 2 UNITS Isosorbide Mononitrate (Imdur Ext Rel Tab) 30 mg QAM PO 05/04/16 08:00 06/03/16 08:59 05/12/16 08:55 30 MG Levetiracetam (Keppra Tab) 250 mg BID PO 05/04/16 08:00 06/03/16 08:59 05/13/16 12:54 250 MG Lisinopril (Zestril Tab) 20 mg QAM PO 05/04/16 08:00 06/03/16 08:59 Future Hold 05/05/16 08:20 20 MG Metoprolol Succinate (Toprol Xl Tab) 25 mg DAILY PO 05/04/16 08:00 06/03/16 08:59 05/12/16 08:58 25 MG Nitroglycerin (Nitrostat Tab) 0.4 mg PRN UT 05/03/16 22:00 06/02/16 21:59 Glucose (Glucose 40% Gel) 15-30 GRAMS 15 GRAMS... UD PRN PO 05/03/16 23:30 06/02/16 23:29 05/09/16 08:21 15 GM Glucose (Glucose Chew Tab) 4-8 Tablets 4 Tabl... UD PRN PO 05/03/16 23:30 06/02/16 23:29 Dextrose (Dextrose 50% 50ML Syringe) 25-50ML OF 50% DW IV FOR... UD PRN IV 05/03/16 23:30 06/02/16 23:29 05/10/16 07:55 25 ML Glucagon (Glucagon Inj) 1 mg UD PRN SQ 05/03/16 23:30 06/02/16 23:29 Tamsulosin HCl (Flomax Cap) 0.4 mg HS PO 05/04/16 21:00 06/03/16 20:59 05/12/16 21:58 0.4 MG Senna/Docusate Sodium (Senokot S Tab) 2 tab BID PO 05/04/16 08:00 06/03/16 07:59 05/12/16 21:59 2 TAB Albuterol (Ventolin Hfa Inhaler) 2 puffs Q4H PRN INH 05/05/16 14:00 06/04/16 13:59 Sodium Biphosphate/ Sodium Phosphate (Fleet Enema) 132 ml DAILY PRN [place] 05/06/16 08:00 06/05/16 07:59 Insulin Glargine (Lantus Solostar Pen) 5 unit HS SC 05/10/16 21:00 06/09/16 20:59 05/12/16 22:16 5 UNIT Physical Exam Date Time Temp Pulse Resp B/P Pulse Ox O2 Delivery O2 Flow Rate FiO2 05/13/16 09:30 Room Air 05/13/16 08:50 36.3 86 18 121/84 94 05/13/16 00:18 Room Air 05/13/16 00:09 36.7 85 16 158/71 93 Room Air 05/12/16 20:29 Room Air 05/12/16 16:00 Room Air General Appearance: no apparent distress ENT: hearing grossly normal Neck: no JVD Respiratory: no respiratory distress, no accessory muscle use, + decreased breath sounds, + wheezing (few expiratory wheezes heard anteriorly in upper lobes) Cardiovascular: regular rate, rhythm, no edema, + normal peripheral pulses Abdomen: normal bowel sounds, non tender, soft Musculoskeletal: pertinent finding (generalized weakness) Neurologic/Psychiatric: alert, + disoriented Skin: normal color Laboratory Results Last 24 Hours Test 05/12/16 16:45 05/12/16 20:21 05/13/16 06:30 05/13/16 08:48 Bedside Glucose 101 mg/dl 100 mg/dl 78 mg/dl White Blood Count 6.58 K/uL Red Blood Count 4.34 M/uL Hemoglobin 13.5 g/dL Hematocrit 39.4 % Mean Corpuscular Volume 90.8 fL Mean Corpuscular Hemoglobin 31.1 pg Mean Corpuscular Hemoglobin Concent 34.3 g/dl RDW Standard Deviation 47.3 fL RDW Coefficient of Variation 14.2 % Platelet Count 248 K/uL Mean Platelet Volume 9.6 fL Sodium Level 143 mmol/L Potassium Level 3.4 mmol/L Chloride Level 105 mmol/L Carbon Dioxide Level 30 mmol/L Anion Gap 8.0 mmol/L Blood Urea Nitrogen 17 mg/dl Creatinine 1.30 mg/dl Est Creatinine Clear Calc Drug Dose 45.2 ml/min Estimated GFR () 58.9 Estimated GFR (Non- 50.8 BUN/Creatinine Ratio 13.3 Random Glucose 87 mg/dl Calcium Level 8.5 mg/dl Test 05/13/16 11:36 Bedside Glucose 79 mg/dl Assessment & Plan Palliative Performance Scale: 20 % Problem list: Confusion/dementia CLARKE on CKD Ambulatory dysfunction Aspiration Constipation Chronic CHF A fib Goals of care (Z51.5) Palliative care plan: -DNR/DNI as previously discussed. -Waiting for return phone call from patient's daughter/POA to determine goals of care. -He is from home with 24hr caregivers, likely will return. Possibly with hospice. -Further plan of care to follow. Thank you kindly for this consult. I will follow. 1899: Saray Katheryn, patient's daughter/POA, did call me back. We discussed patient's condition and goals of care. She understands patient is aspirating and is really unable to ambulate at this point. Saray said that patient would not want a feeding tube or any other heroic measures at this point. The goal is to get patient home with 24 hour caregivers and not come back to the hospital-- she is requesting home hospice. I fully explained hospice and the service they provide, she is agreeable. Saray will call me when she has chosen an agency.
[2016-05-13 16:59] VITALS: BP 156/94; PULSE 101; TEMP 36.3; O2SAT 92
--- NOTE | 2016-05-13 18:51 | Progress Note ---
Subjective Date of Service: May 13, 2016. Subjective Pt evaluation today including: conversation w/ patient, physical exam, lab review, review of studies, review of inpatient medication list Saw/examined the patient in room 414 He is awake/alert, and talking disoriented as he states his is in the room (no one is currently in the room) he states he feels fine negative ROS Problem List Medical Problems: (1) Acute renal failure Status: Acute (2) Altered mental status Status: Acute (3) Chest pain Status: Acute (4) Chronic renal disease Status: Acute (5) Constipation Status: Acute (6) Elevated troponin Status: Acute (7) Esophageal foreign body Status: Acute (8) Hypoxia Status: Acute (9) New onset a-fib Status: Acute (10) Pneumonia Status: Acute (11) Precordial chest pain Status: Acute (12) Urinary retention Status: Acute (13) UTI (urinary tract infection) Status: Acute (14) Weakness Status: Acute Review of Systems Constitutional: No chills, No fever Respiratory: No cough, No shortness of breath, No sputum Cardiac: No chest pain, No edema, No palpitations Abdomen: No constipation, No diarrhea, No nausea, No pain, No vomiting Medications Current Inpatient Medications Medications (Trade) Dose Ordered Sig/Mike Route Start Time Stop Time Status Last Admin Dose Admin Acetaminophen (Tylenol Tab) 650 mg Q4H PRN PO 05/03/16 22:00 06/02/16 21:59 Heparin Sodium (Porcine) (Heparin Sq 5000 Unit/0.5ml) 5,000 unit Q12 SQ 05/04/16 09:00 06/03/16 08:59 05/12/16 22:17 5,000 UNIT Allopurinol (Zyloprim Tab) 200 mg DAILY PO 05/04/16 08:00 06/03/16 08:59 05/12/16 09:00 200 MG Cholecalciferol (Vitamin D Tab) 2,000 inter.unit DAILY PO 05/04/16 08:00 06/03/16 08:59 05/12/16 08:59 2,000 INTER.UNIT Clopidogrel Bisulfate (plAVix TAB) 75 mg DAILY PO 05/04/16 08:00 06/03/16 08:59 05/12/16 08:56 75 MG Insulin Aspart (novoLOG ASPART) ACHS SQ 05/04/16 06:30 06/03/16 06:59 05/11/16 18:16 2 UNITS Isosorbide Mononitrate (Imdur Ext Rel Tab) 30 mg QAM PO 05/04/16 08:00 06/03/16 08:59 05/12/16 08:55 30 MG Levetiracetam (Keppra Tab) 250 mg BID PO 05/04/16 08:00 06/03/16 08:59 05/13/16 12:54 250 MG Lisinopril (Zestril Tab) 20 mg QAM PO 05/04/16 08:00 06/03/16 08:59 Future Hold 05/05/16 08:20 20 MG Metoprolol Succinate (Toprol Xl Tab) 25 mg DAILY PO 05/04/16 08:00 06/03/16 08:59 05/12/16 08:58 25 MG Nitroglycerin (Nitrostat Tab) 0.4 mg PRN UT 05/03/16 22:00 06/02/16 21:59 Glucose (Glucose 40% Gel) 15-30 GRAMS 15 GRAMS... UD PRN PO 05/03/16 23:30 06/02/16 23:29 05/09/16 08:21 15 GM Glucose (Glucose Chew Tab) 4-8 Tablets 4 Tabl... UD PRN PO 05/03/16 23:30 06/02/16 23:29 Dextrose (Dextrose 50% 50ML Syringe) 25-50ML OF 50% DW IV FOR... UD PRN IV 05/03/16 23:30 06/02/16 23:29 05/10/16 07:55 25 ML Glucagon (Glucagon Inj) 1 mg UD PRN SQ 05/03/16 23:30 06/02/16 23:29 Tamsulosin HCl (Flomax Cap) 0.4 mg HS PO 05/04/16 21:00 06/03/16 20:59 05/12/16 21:58 0.4 MG Senna/Docusate Sodium (Senokot S Tab) 2 tab BID PO 05/04/16 08:00 06/03/16 07:59 05/12/16 21:59 2 TAB Albuterol (Ventolin Hfa Inhaler) 2 puffs Q4H PRN INH 05/05/16 14:00 06/04/16 13:59 Sodium Biphosphate/ Sodium Phosphate (Fleet Enema) 132 ml DAILY PRN [place] 05/06/16 08:00 06/05/16 07:59 Insulin Glargine (Lantus Solostar Pen) 5 unit HS SC 05/10/16 21:00 06/09/16 20:59 05/12/16 22:16 5 UNIT Objective Vital Signs Date Time Temp Pulse Resp B/P Pulse Ox O2 Delivery O2 Flow Rate FiO2 05/13/16 16:59 36.3 101 20 156/94 92 Room Air 05/13/16 09:30 Room Air 05/13/16 08:50 36.3 86 18 121/84 94 05/13/16 00:18 Room Air 05/13/16 00:09 36.7 85 16 158/71 93 Room Air 05/12/16 20:29 Room Air Physical Exam General Appearance: no apparent distress Respiratory/Chest: chest non-tender, lungs clear, normal breath sounds, no respiratory distress, no accessory muscle use Cardiovascular: regular rate, rhythm, no edema, no murmur Extremities: normal inspection, no pedal edema Laboratory Results Last 24 Hours Test 05/12/16 20:21 05/13/16 06:30 05/13/16 08:48 05/13/16 11:36 Bedside Glucose 100 mg/dl 78 mg/dl 79 mg/dl White Blood Count 6.58 K/uL Red Blood Count 4.34 M/uL Hemoglobin 13.5 g/dL Hematocrit 39.4 % Mean Corpuscular Volume 90.8 fL Mean Corpuscular Hemoglobin 31.1 pg Mean Corpuscular Hemoglobin Concent 34.3 g/dl RDW Standard Deviation 47.3 fL RDW Coefficient of Variation 14.2 % Platelet Count 248 K/uL Mean Platelet Volume 9.6 fL Sodium Level 143 mmol/L Potassium Level 3.4 mmol/L Chloride Level 105 mmol/L Carbon Dioxide Level 30 mmol/L Anion Gap 8.0 mmol/L Blood Urea Nitrogen 17 mg/dl Creatinine 1.30 mg/dl Est Creatinine Clear Calc Drug Dose 45.2 ml/min Estimated GFR () 58.9 Estimated GFR (Non- 50.8 BUN/Creatinine Ratio 13.3 Random Glucose 87 mg/dl Calcium Level 8.5 mg/dl Test 05/13/16 17:12 Bedside Glucose 114 mg/dl Assessment and Plan Dysphagia/Aspiration 05/13 appreciate palliative care consultation will likely need home hospice aspirate at all times; comfort feeds 05/12 patient with aspiration with any types of consistency appreciate speech evaluation will need to discuss with daughter regarding palliative care Acute Kidney Injury superimposed on CKD stage 3 05/13 creatinine down to 1.3 no IVFs stop diuretics 05/12 creatinine is 1.6 today hold off on IVFs at this time stop diuretic use concentrated urine and decreased urine production will hold off on voiding trial 05/11 creat up to 1.5 stopped IVFs stop all diuretics monitor how he does with his regular PO intake 05/10 creat at 1.4 patient sounded as if he was getting fluid overloaded today stopped IVFs given one dose of IV Lasix 05/09 improved, creat down to 1.4 IVFs @ 80mL/hr monitor and stop IVFs in AM 05/08 creat down to 1.9 likely prerenal kidney injury continue IVFs and monitor for fluid overload encouraged PO intake 05/07 recheck of creat this morning shows 3.9 again will increase IVFs he is now eating dinner, which should improve seems prerenal in nature 05/06 significant jump in creat to 3.9 urine is dark and patient is not eating much will increase IVF rate to 100mL/hr and recheck creat in AM hold CAMERON-I and Lasix for now -due to dehydration , poor PO intake decreased urine out put , with mild elevation of cr form baseline ordered gentle IV fluid hold Lasix hold ACEI till cr returns to baseline Lower Abdominal Pain secondary to Urinary Retention 05/13 patient to be home hospice; will keep Zendejas in on discharge 05/11 plan to remove Zendejas on 05/12 and voiding trial with Flomax 05/08 continue with the Zendejas will try voiding trial in a few days 05/07 Zendejas draining dark urine increase fluids continue Flomax will try to d/c Zendejas prior to discharge for voiding trial; if not, may require chronic Zendejas 05/06 Urinary retention is an issue continue catheter, may require chronic Zendejas symptom improved after Zendejas catheter insertion possible cause -BPH , chronic debilitating status , bed bound with advance dementia Detrol LA d/karlie UA negative for infection started on Flomax Voiding trial prior to discharge given multiple co morbidities pt may requiring chronic indwelling Zendejas CONSTIPATION Abdominal films demonstrate moderate-severe constipation. Bowel regimen as ordered. having bowel movement CHRONIC CHF Chronic left ventricular diastolic heart failure. currently dehydrated hold Lasix /ASEI ; gustabo hydration monitor vol status ATRIAL FIBRILLATION Rate controlled on metoprolol. Not a candidate for chronic anticoagulated, dementia /high fall risk. DM TYPE II Hgb A1C 7.2 on 04/24/16. Hold sitagliptin-poor pO intake , lethargy Continue Lantus. NovoLog coverage as needed. VTE PROPHYLAXIS moderate to high risk SQ heparin. RESUSCITATION STATUS Discussed with daughter / POA. DNR. DISPOSITION lives at home with Daughter Saray Campa has 01/09 care through private pay Daughter wants pt to return home with home health Family Medicine follow-up with Dr. Boyer. PT/OT eval social service consulted for discharge planning .
[2016-05-13] MEDS: TAMSULOSIN HCL 0.4 MG CAP PO SCH (19:19)
[2016-05-13] MEDS: INSULIN GLARGINE SOLOSTAR 100 UNITS/ML 3 ML PEN SC SCH (21:42)
[2016-05-14 00:08] VITALS: BP 132/86; PULSE 106; TEMP 36.5; O2SAT 93
[2016-05-14] MEDS: ISOSORBIDE MONONITRATE 30 MG TABCR PO SCH (07:36)
[2016-05-14] MEDS: ALLOPURINOL 100 MG TAB PO SCH (07:36)
[2016-05-14] MEDS: CLOPIDOGREL BISULFATE 75 MG TAB PO SCH (07:36)
[2016-05-14] MEDS: LEVETIRACETAM 250 MG TAB PO SCH ×2 (07:37→22:15)
[2016-05-14] MEDS: CHOLECALCIFEROL 1000 INTER.UNIT TAB PO SCH (07:38)
[2016-05-14] MEDS: DOCUSATE SODIUM/SENNA 50/8.6MG TAB PO SCH ×2 (07:39→20:44)
[2016-05-14 07:47] VITALS: BP 136/82; PULSE 69; TEMP 36.3; O2SAT 94
[2016-05-14] MEDS: METOPROLOL SUCC 25MG EXT REL TAB PO SCH (08:05)
[2016-05-14] MEDS: HEPARIN SOD 5000 UNIT/0.5 ML CARP SQ SCH ×2 (08:15→22:15)
[2016-05-14] MEDS: INSULIN ASPART 100 UNITS/ML 3 ML PEN SQ SCH ×4 (08:33→20:45)
--- NOTE | 2016-05-14 11:54 | Progress Note ---
Subjective Date of Service: May 14, 2016. Subjective Pt evaluation today including: conversation w/ patient, physical exam, lab review, review of studies, review of inpatient medication list Saw/examined the patient in room 414 He's awake/alert and answering questions appropriately Tired, but denies shortness of breath/chest pain Problem List Medical Problems: (1) Acute renal failure Status: Acute (2) Altered mental status Status: Acute (3) Chest pain Status: Acute (4) Chronic renal disease Status: Acute (5) Constipation Status: Acute (6) Elevated troponin Status: Acute (7) Esophageal foreign body Status: Acute (8) Hypoxia Status: Acute (9) New onset a-fib Status: Acute (10) Pneumonia Status: Acute (11) Precordial chest pain Status: Acute (12) Urinary retention Status: Acute (13) UTI (urinary tract infection) Status: Acute (14) Weakness Status: Acute Review of Systems Respiratory: No shortness of breath Cardiac: No chest pain Medications Current Inpatient Medications Medications (Trade) Dose Ordered Sig/Mike Route Start Time Stop Time Status Last Admin Dose Admin Acetaminophen (Tylenol Tab) 650 mg Q4H PRN PO 05/03/16 22:00 06/02/16 21:59 Heparin Sodium (Porcine) (Heparin Sq 5000 Unit/0.5ml) 5,000 unit Q12 SQ 05/04/16 09:00 06/03/16 08:59 05/14/16 08:15 5,000 UNIT Allopurinol (Zyloprim Tab) 200 mg DAILY PO 05/04/16 08:00 06/03/16 08:59 05/14/16 07:36 200 MG Cholecalciferol (Vitamin D Tab) 2,000 inter.unit DAILY PO 05/04/16 08:00 06/03/16 08:59 05/14/16 07:38 2,000 INTER.UNIT Clopidogrel Bisulfate (plAVix TAB) 75 mg DAILY PO 05/04/16 08:00 06/03/16 08:59 05/14/16 07:36 75 MG Insulin Aspart (novoLOG ASPART) ACHS SQ 05/04/16 06:30 06/03/16 06:59 05/11/16 18:16 2 UNITS Isosorbide Mononitrate (Imdur Ext Rel Tab) 30 mg QAM PO 05/04/16 08:00 06/03/16 08:59 4/5/17 07:36 30 MG Levetiracetam (Keppra Tab) 250 mg BID PO 05/04/16 08:00 06/03/16 08:59 05/14/16 07:37 250 MG Lisinopril (Zestril Tab) 20 mg QAM PO 05/04/16 08:00 06/03/16 08:59 Future Hold 05/05/16 08:20 20 MG Metoprolol Succinate (Toprol Xl Tab) 25 mg DAILY PO 05/04/16 08:00 06/03/16 08:59 05/14/16 08:05 25 MG Nitroglycerin (Nitrostat Tab) 0.4 mg PRN UT 05/03/16 22:00 06/02/16 21:59 Glucose (Glucose 40% Gel) 15-30 GRAMS 15 GRAMS... UD PRN PO 05/03/16 23:30 06/02/16 23:29 05/09/16 08:21 15 GM Glucose (Glucose Chew Tab) 4-8 Tablets 4 Tabl... UD PRN PO 05/03/16 23:30 06/02/16 23:29 Dextrose (Dextrose 50% 50ML Syringe) 25-50ML OF 50% DW IV FOR... UD PRN IV 05/03/16 23:30 06/02/16 23:29 05/10/16 07:55 25 ML Glucagon (Glucagon Inj) 1 mg UD PRN SQ 05/03/16 23:30 06/02/16 23:29 Tamsulosin HCl (Flomax Cap) 0.4 mg HS PO 05/04/16 21:00 06/03/16 20:59 05/13/16 19:19 0.4 MG Senna/Docusate Sodium (Senokot S Tab) 2 tab BID PO 05/04/16 08:00 06/03/16 07:59 05/14/16 07:39 2 TAB Albuterol (Ventolin Hfa Inhaler) 2 puffs Q4H PRN INH 05/05/16 14:00 06/04/16 13:59 Sodium Biphosphate/ Sodium Phosphate (Fleet Enema) 132 ml DAILY PRN [place] 05/06/16 08:00 06/05/16 07:59 Insulin Glargine (Lantus Solostar Pen) 5 unit HS SC 05/10/16 21:00 06/09/16 20:59 05/13/16 21:42 5 UNIT Objective Vital Signs Date Time Temp Pulse Resp B/P Pulse Ox O2 Delivery O2 Flow Rate FiO2 05/14/16 07:47 36.3 69 18 136/82 94 Room Air 05/14/16 07:40 Room Air 05/14/16 01:30 Room Air 05/14/16 00:08 36.5 106 20 132/86 93 Room Air 05/13/16 16:59 36.3 101 20 156/94 92 Room Air 05/13/16 16:00 Room Air Physical Exam General Appearance: no apparent distress, + pertinent finding (lethargic) Respiratory/Chest: lungs clear, normal breath sounds, no respiratory distress, no accessory muscle use Cardiovascular: regular rate, rhythm, no edema, no murmur Abdomen: + pertinent finding (+Zendejas cath in place) Neurologic/Psychiatric: alert, normal mood/affect Laboratory Results Last 24 Hours Test 05/13/16 17:12 05/13/16 20:21 05/14/16 08:13 05/14/16 11:30 Bedside Glucose 114 mg/dl 148 mg/dl 97 mg/dl 108 mg/dl Assessment and Plan Dysphagia/Aspiration 05/14 plan for d/c home with home hospice continue comfort feeds will need Zendejas to remain in place 05/13 appreciate palliative care consultation will likely need home hospice aspirate at all times; comfort feeds 05/12 patient with aspiration with any types of consistency appreciate speech evaluation will need to discuss with daughter regarding palliative care Acute Kidney Injury superimposed on CKD stage 3 05/13 creatinine down to 1.3 no IVFs stop diuretics 05/12 creatinine is 1.6 today hold off on IVFs at this time stop diuretic use concentrated urine and decreased urine production will hold off on voiding trial 05/11 creat up to 1.5 stopped IVFs stop all diuretics monitor how he does with his regular PO intake 05/10 creat at 1.4 patient sounded as if he was getting fluid overloaded today stopped IVFs given one dose of IV Lasix 05/09 improved, creat down to 1.4 IVFs @ 80mL/hr monitor and stop IVFs in AM 05/08 creat down to 1.9 likely prerenal kidney injury continue IVFs and monitor for fluid overload encouraged PO intake 05/07 recheck of creat this morning shows 3.9 again will increase IVFs he is now eating dinner, which should improve seems prerenal in nature 05/06 significant jump in creat to 3.9 urine is dark and patient is not eating much will increase IVF rate to 100mL/hr and recheck creat in AM hold CAMERON-I and Lasix for now -due to dehydration , poor PO intake decreased urine out put , with mild elevation of cr form baseline ordered gentle IV fluid hold Lasix hold ACEI till cr returns to baseline Lower Abdominal Pain secondary to Urinary Retention 05/13 patient to be home hospice; will keep Zendejas in on discharge 05/11 plan to remove Zendejas on 05/12 and voiding trial with Flomax 05/08 continue with the Zendejas will try voiding trial in a few days 05/07 Zendejas draining dark urine increase fluids continue Flomax will try to d/c Zendejas prior to discharge for voiding trial; if not, may require chronic Zendejas 05/06 Urinary retention is an issue continue catheter, may require chronic Zendejas symptom improved after Zendejas catheter insertion possible cause -BPH , chronic debilitating status , bed bound with advance dementia Detrol LA d/karlie UA negative for infection started on Flomax Voiding trial prior to discharge given multiple co morbidities pt may requiring chronic indwelling Zendejas CONSTIPATION Abdominal films demonstrate moderate-severe constipation. Bowel regimen as ordered. having bowel movement CHRONIC CHF Chronic left ventricular diastolic heart failure. currently dehydrated hold Lasix /ASEI ; gustabo hydration monitor vol status ATRIAL FIBRILLATION Rate controlled on metoprolol. Not a candidate for chronic anticoagulated, dementia /high fall risk. DM TYPE II Hgb A1C 7.2 on 04/24/16. Hold sitagliptin-poor pO intake , lethargy Continue Lantus. NovoLog coverage as needed. VTE PROPHYLAXIS moderate to high risk SQ heparin. RESUSCITATION STATUS Discussed with daughter / POA. DNR. DISPOSITION lives at home with Daughter Saray Campa has 01/09 care through private pay Daughter wants pt to return home with home health Family Medicine follow-up with Dr. Boyer. PT/OT eval social service consulted for discharge planning .
[2016-05-14 15:48] VITALS: BP 89/55; PULSE 73; TEMP 36.5; O2SAT 90
[2016-05-14 16:18] VITALS: BP 124/78; PULSE 83; TEMP 36.6; O2SAT 100
[2016-05-14 16:35] VITALS: BP 116/67
[2016-05-14] MEDS: TAMSULOSIN HCL 0.4 MG CAP PO SCH (22:15)
[2016-05-14 23:56] VITALS: BP 159/77; PULSE 70; TEMP 36.4; O2SAT 95
[2016-05-15 07:56] VITALS: BP 166/94; PULSE 70; TEMP 36.4; O2SAT 93
[2016-05-15 08:22] VITALS: O2SAT 93
[2016-05-15] MEDS: INSULIN ASPART 100 UNITS/ML 3 ML PEN SQ SCH ×4 (09:21→21:00)
[2016-05-15] MEDS ORDERED: LEVETIRACETAM SOLN 250 MG/2.5 ML UDP PO SCH (09:30)
[2016-05-15] MEDS: HEPARIN SOD 5000 UNIT/0.5 ML CARP SQ SCH ×2 (09:30→21:32)
[2016-05-15] MEDS: LEVETIRACETAM SOLN 250 MG/2.5 ML UDP PO SCH ×2 (10:40→23:20)
[2016-05-15] MEDS: DOCUSATE SODIUM 100 MG/10 ML UDC PO SCH ×2 (10:46→23:20)
[2016-05-15] MEDS: SENNA 17.6 MG/10 ML UDP PO SCH ×2 (10:50→23:20)
[2016-05-15 11:43] VITALS: BP 139/77; PULSE 70; TEMP 36.4; O2SAT 99
[2016-05-15 15:43] VITALS: BP 167/90; PULSE 69; TEMP 36.3; O2SAT 94
[2016-05-15 16:25] VITALS: O2SAT 94
--- NOTE | 2016-05-15 20:53 | Progress Note ---
Medicine Progress Note Date & Time of Visit: May 15, 2016 at 20:47. Subjective Patient seen and examined. Denies complaints. Objective Last 8 Hrs Date Time Temp Pulse Resp B/P Pulse Ox O2 Delivery O2 Flow Rate FiO2 05/15/16 15:43 36.3 69 18 167/90 94 Room Air Physical Exam: General-awake; alert; NAD Eyes-EOMI; no scleral icterus Neck-no stridor; trachea midline Lungs-CTA bilaterally anteriorly Heart-RRR; no m/r/g Abdomen-soft; NTND; nBS Extremities-no c/c/e; no deformity Neuro-unable to assess Laboratory Results: Last 24 Hours Test 05/15/16 07:30 05/15/16 11:38 05/15/16 16:51 05/15/16 20:19 Bedside Glucose 112 mg/dl 105 mg/dl 103 mg/dl 136 mg/dl Assessment & Plan Dysphagia/Aspiration - permissive at this time as patient will return home with home hospice CLARKE - resolved with IVF's - discontinued lisinopril and diuretics - chronic indwelling link Urinary retention - chronic indwelling link Constipation - bowel regimen Chronic diastolic heart failure - euvolemic - discontinued diuretics A fib - rate controlled with metoprolol Type 2 DM - continue insulin therapy Discharge home with home hospice Current Inpatient Medications: Current Inpatient Medications Medications (Trade) Dose Ordered Sig/Mike Route Start Time Stop Time Status Last Admin Dose Admin Acetaminophen (Tylenol Tab) 650 mg Q4H PRN PO 05/03/16 22:00 06/02/16 21:59 Heparin Sodium (Porcine) (Heparin Sq 5000 Unit/0.5ml) 5,000 unit Q12 SQ 05/04/16 09:00 06/03/16 08:59 05/15/16 09:30 5,000 UNIT Insulin Aspart (novoLOG ASPART) ACHS SQ 05/04/16 06:30 06/03/16 06:59 05/14/16 17:36 1 UNITS Lisinopril (Zestril Tab) 20 mg QAM PO 05/04/16 08:00 06/03/16 08:59 Future Hold 05/05/16 08:20 20 MG Nitroglycerin (Nitrostat Tab) 0.4 mg PRN UT 05/03/16 22:00 06/02/16 21:59 Glucose (Glucose 40% Gel) 15-30 GRAMS 15 GRAMS... UD PRN PO 05/03/16 23:30 06/02/16 23:29 05/09/16 08:21 15 GM Glucose (Glucose Chew Tab) 4-8 Tablets 4 Tabl... UD PRN PO 05/03/16 23:30 06/02/16 23:29 Dextrose (Dextrose 50% 50ML Syringe) 25-50ML OF 50% DW IV FOR... UD PRN IV 05/03/16 23:30 06/02/16 23:29 05/10/16 07:55 25 ML Glucagon (Glucagon Inj) 1 mg UD PRN SQ 05/03/16 23:30 06/02/16 23:29 Tamsulosin HCl (Flomax Cap) 0.4 mg HS PO 05/04/16 21:00 06/03/16 20:59 05/13/16 19:19 0.4 MG Albuterol (Ventolin Hfa Inhaler) 2 puffs Q4H PRN INH 05/05/16 14:00 06/04/16 13:59 Sodium Biphosphate/ Sodium Phosphate (Fleet Enema) 132 ml DAILY PRN [place] 05/06/16 08:00 06/05/16 07:59 Senna (Senokot Syrup) 17.6 mg BID PO 05/15/16 09:30 06/14/16 09:29 Docusate Sodium (coLACE SYRUP) 100 mg BID PO 05/15/16 09:30 06/14/16 09:29 05/15/16 10:46 100 MG Levetiracetam (Keppra Soln) 250 mg BID PO 05/15/16 10:00 06/14/16 09:59 05/15/16 10:40 250 MG
[2016-05-15] MEDS: TAMSULOSIN HCL 0.4 MG CAP PO SCH (21:00)
[2016-05-16 01:11] VITALS: BP 167/87; PULSE 73; TEMP 36.4; O2SAT 91
[2016-05-16 07:57] VITALS: BP 127/83; PULSE 70; TEMP 36.4; O2SAT 91
[2016-05-16] MEDS: INSULIN ASPART 100 UNITS/ML 3 ML PEN SQ SCH ×2 (09:54→12:54)
[2016-05-16] MEDS: LEVETIRACETAM SOLN 250 MG/2.5 ML UDP PO SCH (09:58)
[2016-05-16] MEDS: SENNA 17.6 MG/10 ML UDP PO SCH (09:58)
[2016-05-16] MEDS: DOCUSATE SODIUM 100 MG/10 ML UDC PO SCH (09:58)
[2016-05-16] MEDS: HEPARIN SOD 5000 UNIT/0.5 ML CARP SQ SCH (10:00)
[2016-05-16] MEDS ORDERED: NVLGI/PEN SQ (10:35)
[2016-05-16] MEDS ORDERED: FLM4 PO (10:35)
[2016-05-16] MEDS ORDERED: SNKUDL10 PO (10:35)
[2016-05-16] MEDS ORDERED: CLCUDL PO (10:35)
--- NOTE | 2016-05-16 10:41 | Discharge Instructions ---
Discharge Instructions Date of Service May 16, 2016. Admission Reason for Admission: Abdominal Pain, Hypoxia Discharge Discharge Diagnosis / Problem: Urinary retention Discharge Goals Goal(s): Decrease discomfort Activity Recommendations Activity Limitations: resume your previous activity . Instructions / Follow-Up Instructions / Follow-Up You have not required any insulin since May 13. Therefore your Lantus has been stopped. You can continue with sliding scale insulin following the parameters outlined in the prescription. Sitagliptin has also been discontinued. Lasix and Lisinopril have been discontinued. Docusate and Senna are new medications to help your bowels move regularly. Tamsulosin is a new medication to help with urination. Current Hospital Diet Patient's current hospital diet: AHA Diet (Heart Healthy), Diabetes Type 2 Diet Discharge Diet Recommended Diet: AHA Diet (Heart Healthy), Diabetes Type 2 Diet Diet Texture: Pureed (blended smooth) Liquid Consistency: Pudding Thick Pending Studies Studies pending at discharge: no Laboratory Results Hemoglobin A1c Test 04/24/16 01:30 Range/Units Estimated Average Glucose 160 mg/dl Hemoglobin A1c 7.2 H 4.5-5.6 % Medical Emergencies . Who to Call and When: Medical Emergencies: If at any time you feel your situation is an emergency, please call 911 immediately. . Non-Emergent Contact Non-Emergency issues call your: Specialist ([facility]) . . "Provider Documentation" section prepared by Flakita Ward. VTE Core Measure Inpt VTE Proph given/why not?: Unfractionated heparin SQ
[2016-05-16 12:38] VITALS: BP 127/83; PULSE 70; TEMP 36.4; O2SAT 91
--- NOTE | 2016-05-16 19:40 | Discharge Summary ---
Discharge Summary Date of Service May 16, 2016. Discharge Summary Admission Date: May 03, 2016 at 21:54 Discharge Date: May 16, 2016 Discharge Disposition: Home with services (Home with hospice) Principal Diagnosis: Urinary retention Procedures: Abdominal series 1. Cardiomegaly and cardiac pacemaker with evidence of congestive failure and interstitial edema. 2. Layering pleural effusions with bibasilar consolidation. This likely represents atelectasis. Correlate clinically for evidence of superimposed pneumonia. 3. Nonobstructed abdominal bowel gas pattern noting moderate to severe constipation. 4. No intraperitoneal free air is seen. Consultations: Palliative care Medication Reconciliation New Medications: Docusate Sodium (Diocto) 100 Mg/10 Ml Syrp 100 MG PO BID for 30 Days, #600 ML Senna (Senna-Grx) 17.6 Mg/10 Ml Syrp 17.6 MG PO BID for 30 Days, #600 ML Tamsulosin HCl (Tamsulosin HCl) 0.4 Mg Cap 0.4 MG PO HS for 30 Days, #30 CAP Changed Medications: Insulin Aspart (Novolog Flexpen) 100 Units/Ml Inj 0 SQ UD for 30 Days (Changed from: Removed Units; SLIDING SCALE 3 TIMES DAILY WITH MEALS 151-200 = 2 UNITS 201-250 = 4 UNITS 251-300 = 6 UNITS 301-350= 8 UNITS 351-400 = 10 UNITS OVER 400 = 10 UNITS AND CALL MD ) SLIDING SCALE 3 TIMES DAILY WITH MEALS 151-200 = 1 UNITS 201-250 = 3 UNITS 251-300 = 5 UNITS 301-350= 7 UNITS 351-400 = 9 UNITS OVER 400 = 10 UNITS AND CALL MD Continued Medications: Albuterol Hfa (Ventolin Hfa) 200 Puffs/94528 Mcg Aers 2 PUFF INH Q4H PRN for Wheezing, #1 INHALER Allopurinol (Zyloprim) 100 Mg Tab 200 MG PO DAILY Cholecalciferol (Vitamin D3) 1,000 Unit Tab 2000 TAB PO DAILY, 3 Refills Clopidogrel Bisulfate (Clopidogrel) 75 Mg Tab 75 MG PO DAILY Isosorbide Mononitrate Ext Rel (Imdur Ext Rel) 30 Mg Tabcr 30 MG PO QAM, TAB Levetiracetam (Keppra) 250 Mg Tab 250 MG PO BID, TAB Metoprolol Succ (Toprol Xl) (Toprol-Xl) 25 Mg Tabcr 25 MG PO DAILY, #30 TAB Nitroglycerin (Nitrostat) 0.4 Mg Tab 0.4 MG UT PRN, BTL Discontinued Medications: Furosemide (Furosemide) 20 Mg Tab 10 MG PO DAILY Insulin Glargine (Lantus Solostar) 100 Unit/Ml Inj 13 UNITS SC HS, PEN Lisinopril (Lisinopril) 40 Mg Tab 20 MG PO QAM Sitagliptin (Januvia) 50 Mg Tab 50 MG PO DAILY, #90 Tolterodine Tartrate (Detrol La) 4 Mg Cap 4 MG PO QAM Admission Information HPI (per Admitting provider): 80 YO male followed by Dr. Boyer. History ischemic heart disease, AF, CHF, CKD, diabetes, BPH, dementia, and other problems noted below. Hospitalized 04/23/16 for aspiration pneumonia. His condition improved and he was discharged to home earlier today where he is cared for by his daughter with the assistance of other caregivers. Developed abdominal pain after returning home. Pain difficult to characterize because of patient's dementia and poor short- term memory. Apparently pain was located in the lower abdomen and did not radiate. No associated fever, nausea, vomiting. Last bowel movement was 2 days ago. Patient denies any difficulty with voiding, but 600 ml urine drained immediately when Link cath inserted. Noted to have O2 sats as low as 87% in ED while napping. History of sleep apnea, but did not tolerate CPAP. Denies chest pain, cough, SOB. . Physical Exam (per Admitting): General Appearance: WD/WN, no apparent distress Head: normocephalic, atraumatic Eyes: normal inspection, PERRL, EOMI, sclerae normal ENT: normal ENT inspection Neck: supple, no adenopathy, thyroid normal, trachea midline, + JVD Respiratory/Chest: no respiratory distress, no accessory muscle use, + rales (few bibasilar) Cardiovascular: + JVD, + irregularly irregular, + abnormal peripheral pulses (diminished), + pertinent finding (trace pretibial edema) Abdomen/GI: normal bowel sounds, non tender, soft, no organomegaly, no pulsatile mass Genitourinary - Male: + pertinent finding (Link cath draining clear urine) Extremities/Musculoskelatal: no calf tenderness, + pedal edema Neurologic/Psych: alert, normal mood/affect, + motor weakness (diffuse mild weakness), + disoriented Skin: normal color, warm/dry Lymphatic: no adenopathy Hospital Course Patient presented with abdominal pain, felt likely to be secondary to urinary retention and/or constipation. Patient had a link catheter inserted. Tolterodine was discontinued and patient was started on tamsulosin. The decision was made to leave a chronic indwelling link catheter rather than attempt a voiding trial. Patient was also started on a bowel regimen for constipation. Patient had an CLARKE during hospitalization, likely 2/2 urinary retention. Lasix and Lisinopril were discontinued. This resolved also with IVF's and link catheter placement. Patient has known dysphagia and aspiration which is permissive at this time. Palliative care was consulted with the decision made with the daughter to discharge the patient home with hospice. Patient deemed stable for discharge home with hospice. PE on discharge: General- awake; alert; NAD Eyes- EOMI; no scleral icterus Neck- no stridor; trachea midline Lungs- CTA bilaterally anteriorly Heart- irregularly irregular Abdomen- soft; NTND; nBS Extremities- no c/c/e; no deformity Skin- no appreciable rash . Total time spent on discharge = This includes examination of the patient, discharge planning, medication reconciliation, and communication with other providers. Discharge Instructions Discharge Instructions Date of Service May 16, 2016. Admission Reason for Admission: Abdominal Pain, Hypoxia Discharge Discharge Diagnosis / Problem: Urinary retention Discharge Goals Goal(s): Decrease discomfort Activity Recommendations Activity Limitations: resume your previous activity . Instructions / Follow-Up Instructions / Follow-Up You have not required any insulin since May 13. Therefore your Lantus has been stopped. You can continue with sliding scale insulin following the parameters outlined in the prescription. Sitagliptin has also been discontinued. Lasix and Lisinopril have been discontinued. Docusate and Senna are new medications to help your bowels move regularly. Tamsulosin is a new medication to help with urination. Current Hospital Diet Patient's current hospital diet: AHA Diet (Heart Healthy), Diabetes Type 2 Diet Discharge Diet Recommended Diet: AHA Diet (Heart Healthy), Diabetes Type 2 Diet Diet Texture: Pureed (blended smooth) Liquid Consistency: Pudding Thick Pending Studies Studies pending at discharge: no Laboratory Results Hemoglobin A1c Test 04/24/16 01:30 Range/Units Estimated Average Glucose 160 mg/dl Hemoglobin A1c 7.2 H 4.5-5.6 % Medical Emergencies . Who to Call and When: Medical Emergencies: If at any time you feel your situation is an emergency, please call 911 immediately. . Non-Emergent Contact Non-Emergency issues call your: Specialist ([facility]) . . "Provider Documentation" section prepared by Flakita Ward. VTE Core Measure Inpt VTE Proph given/why not?: Unfractionated heparin SQ Additional Copies To Austen Boyer M.D. (MEDICAL)
== END 2016-05-16 13:18 | disposition hospice, home (50) | DRG 695 ==
LOC: ENRESERVDT → ENRESERVTM → EDBD 17:04 → C.EDB 17:06 → C.4E 21:54
PROVIDERS: ADMIT Hospitalist; ATTEND Internal Medicine
DX: R33.8 Other retention of urine (principal); J69.0 Pneumonitis due to inhalation of food and vomit; I50.32 Chronic diastolic (congestive) heart failure; N17.9 Acute kidney failure, unspecified; N40.1 Benign prostatic hyperplasia with lower urinary tract symptoms; N18.3 Chronic kidney disease, stage 3 (moderate); I48.91 Unspecified atrial fibrillation; E11.22 Type 2 diabetes mellitus with diabetic chronic kidney disease; F03.90 Unspecified dementia, unspecified severity, without behavioral disturbance, psychotic disturbance, mood disturbance, and anxiety; K59.00 Constipation, unspecified; G47.30 Sleep apnea, unspecified; R09.02 Hypoxemia; Z51.5 Encounter for palliative care; E86.0 Dehydration; R13.10 Dysphagia, unspecified; Z66 Do not resuscitate; Z79.4 Long term (current) use of insulin; Z79.899 Other long term (current) drug therapy